=== PATIENT | male | born 1935 | race Caucasian/White ===

== ENCOUNTER 2017-09-10 11:54 | Emergency (ER) | payer MEDICARE, SELFPAY ==
[2017-09-10 12:23] VITALS: BP 92/60; PULSE 80; RESP 20; TEMP 37.4; O2SAT 95; BMI 28.5
--- NOTE | 2017-09-10 12:26 | HMH.EDUTC ---
[facility] [place] Clinical Impression: Gastroenteritis Disposition: Home, Self-Care Condition on Discharge: Good Instructions: DI for Vomiting -- Adult, DI for Dehydration -- Adult, Dehydration Additional Instructions: ? Drink extra fluids with and between meals. If you have difficulty drinking, try very small amounts of water or suck on ice chips. ? Avoid fruit juices, as these do not replace minerals and can actually increase diarrhea. ? Children and adults can use sports drinks to replenish electrolytes. Younger children and infants should use products formulated for children, like oral rehydration solutions. ? Eat food in small amounts and let your stomach recover. ? Get lots of rest. You may feel tired or weak. ? Check with your doctor before taking medications or giving them to children. Never give aspirin to children or teenagers with a viral illness. This can cause Saturnino syndrome, a potentially life-threatening condition. Make sure to drink plenty of fluids to keep yourself hydrated Follow up with family doctor in 24-48 hours if no improvement or worsening of symptoms Straight to ER if any life threatening symptoms Prescriptions: Ondansetron [Zofran 4mg ODT] 4 mg PO Q8H #20 tab.rapdis Referrals: Jaime Cleveland MD [Primary Care Provider] - Time of Disposition: 14:53 Medical Decision Making - Medical Records Medical records reviewed: Yes: I reviewed the patient's medical records. - Wilian Inquiry Pt receiving controlled substance: No Wilian was queried for this patient: No Vital Signs: 09/10/17 12:23 Temperature 99.4 F Temperature Source Temporal Artery Scan Pulse Rate [Right Brachial] 80 Respiratory Rate 20 Blood Pressure [Right Arm] 92/60 Blood Pressure Mean [Right Arm] 70 Blood Pressure Source [Right Arm] Automatic Cuff Blood Pressure Position [Right Arm] Sitting 02 Sat by Pulse Oximetry 95 Oxygen Delivery Method Room Air Orders (Tests/Meds): ED MEDICATIONS Discontinued Medications Generic Name Dose Route Start Last Admin Trade Name Freq PRN Reason Stop Dose Admin Sodium Chloride 1,000 mls @ 999 mls/hr 09/10/17 12:30 09/10/17 12:53 Sod Chlor 0.9% 1000ml Bag IV 09/10/17 13:30 999 mls/hr .Q1H1M DANNI Administration Sodium Chloride 1,000 mls @ 999 mls/hr 09/10/17 13:45 09/10/17 13:40 Sod Chlor 0.9% 1000ml Bag IV 09/10/17 14:45 999 mls/hr .Q1H1M DANNI Administration Ondansetron HCl 4 mg 09/10/17 12:41 09/10/17 12:53 Zofran 4mg/2ml Vial IV 09/10/17 12:42 4 mg ONCE ONE Administration - Reevaluation(s) Time: 13:30 Reevaluation #1: Patient has had one 1 liter bolus and zofran State that he feels much better, second liter of fluids hang and infusing at this time Time: 14:49 Reevaluation #3: Patient no joking with family and laughing State that he no longer feels weak. State that he feels much better and longer weak when he tries to walk and his mouth is no longer dry Blood pressure rechecked and recorded [facility] [place] - General Stated complaint: weak flu like symptoms Time Seen by Provider: 09/10/17 12:20 Mode of Arrival: Family Vehicle Source of Information: Patient Limitations: No Limitations Description of Symptoms (Recalled from Triage Doc. by RN): c/o weakness, vomiting, diarrhea and abd cramps HEENT Symptoms (Recalled from RN notes): No Resp Symptoms (Recalled from RN notes): No Skin Symptoms (Recalled from RN notes): No MS Symptoms (Recalled from RN notes): No Functional Status (Recalled from RN notes): n/a - History of Present Illness Provider Complaint: Patient state that for the last couple of days he has been having nausea vomiting and diarrhea along with some abdominal cramping State that just prior to having vomiting or diarrhea he cramps in his stomach State that he felt a little better yesterday and didn't have much vomiting and diarrhea but it started back last night and this morning he feels a little weak and having vomiting again -
[2017-09-10 14:51] VITALS: BP 112/64; PULSE 68
[2017-09-10 15:01] VITALS: BP 112/68; PULSE 81; RESP 20; TEMP 37.2; O2SAT 97
== END 2017-09-10 15:03 | disposition home or self-care (01) ==
PROVIDERS: Emergency Provider Nurse Practitioner; Family Provider Family Medicine; PCP Family Medicine
DX: K52.9 Noninfective gastroenteritis and colitis, unspecified (principal); I10 Essential (primary) hypertension; E78.5 Hyperlipidemia, unspecified; Z79.82 Long term (current) use of aspirin
CPT/HCPCS: 96360; 96361; 96365; 96366; 96375; 99202; J2405

== ENCOUNTER 2017-09-13 20:50 | Inpatient (IN) ==
[2017-09-13 21:39] LABS: Eosinophils % 0.5 % (0.1-12.0); Hematocrit 42.8 % (42.0-52.0); Hemoglobin 14.1 g/dL (14.1-18.0); Lymphocytes # 0.4 K/mm3 (0.7-4.5); Lymphocytes % 4.9 K/mm3 (10-50); Mean Corpuscular Hemoglobin 32.1 pg (27.0-31.2); Mean Corpuscular Volume 97.3 fl (80-94); Monocytes # 0.2 K/mm3 (0.1-1.0); Monocytes % 2.8 % (1.7-9.3); Neutrophils # 7.6 K/mm3 (1.8-7.8); Neutrophils % 91.8 % (37.0-80.0); Platelet Count 177 K/mm3 (142-424); Red Cell Distribution Width 13.7 % (11.5-17.5); White Blood Count 8.2 K/mm3 (4.8-10.8)
--- NOTE | 2017-09-13 22:05 | Emergency Department Note ---
ED Disposition Clinical Impression: Cholecystitis with cholelithiasis Qualifiers: Cholelithiasis location: gallbladder Cholecystitis acuity: acute Biliary obstruction: without biliary obstruction Qualified Code(s): K80.00 - Calculus of gallbladder with acute cholecystitis without obstruction Disposition: Admitted As Inpatient Condition on Discharge: Good Referrals: Jaime Cleveland MD [Primary Care Provider] - - Critical Care Critical Care Time: No Attestation: On 09/13/17, the high probability of a clinically significant, sudden or life threatening deterioration of the following system(s) required my full and direct attention, intervention and personal management. The time I documented below is in addition to time spent performing reported procedures but includes the following listed in this critical care notation. Medical Decision Making - Medical Records Medical records reviewed: Yes: I reviewed the patient's medical records. - Wilian Inquiry Pt receiving controlled substance: No Vital Signs: 09/13/17 20:56 Temperature 98.7 F Temperature Source Oral Pulse Rate [Right Radial] 83 Respiratory Rate 16 Blood Pressure [Right Arm] 141/57 Blood Pressure Mean [Right Arm] 85 Blood Pressure Source [Right Arm] Automatic Cuff Blood Pressure Position [Right Arm] Sitting 02 Sat by Pulse Oximetry 96 Oxygen Delivery Method Room Air - Lab Data Lab results reviewed: Yes: I reviewed the patient's lab results. Lab Results 09/13/17 21:28: WBC 8.2, RBC 4.40 L, Hgb 14.1, Hct 42.8, MCV 97.3 H, MCH 32.1 H , MCHC 33.0, RDW 13.7, Plt Count 177, MPV 8.0, Neut % (Auto) 91.8 H, Lymph % ( Auto) 4.9 L, [place] % (Auto) 2.8, Eos % (Auto) 0.5, Baso % (Auto) 0.0 L, Neut # ( Auto) 7.6, Lymph # (Auto) 0.4 L, [place] # (Auto) 0.2, Eos # (Auto) 0.0, Baso # ( Auto) 0.0 09/13/17 21:28: Sodium 139, Potassium 3.8, Chloride 103, Carbon Dioxide 27, Anion Gap 12.8, BUN 16, Creatinine 1.09, Estimated Creat Clear 71, Estimated GFR 65, Est GFR ( Amer) 79, Glucose 129 H, Calcium 8.6, Total Bilirubin 2.7 H, AST 22, ALT 24, Alkaline Phosphatase 115, Total Creatine Kinase 17 L, CK- MB (CK-2) < 0.5, CK-MB (CK-2) Rel Index 2.9, Troponin I < 0.02, Total Protein 7.1, Albumin 2.8 L, Globulin 4.3 H, Albumin/Globulin Ratio 0.7 L, Amylase 13 L, Lipase 41 L 09/13/17 22:20: Lactic Acid 1.8 Result diagrams: 09/13/17 21:28 09/13/17 21:28 Orders (Tests/Meds): ED MEDICATIONS Generic Name Dose Route Start Last Admin Trade Name Freq PRN Reason Stop Dose Admin Sodium Chloride 1,000 mls @ 75 mls/hr 09/13/17 22:30 09/13/17 22:42 Sod Chlor 0.9% 1000ml Bag IV 10/13/17 22:29 75 mls/hr .[id number] DANNI Administration Discontinued Medications Generic Name Dose Route Start Last Admin Trade Name Freq PRN Reason Stop Dose Admin Morphine Sulfate 2 mg 09/13/17 22:28 09/13/17 22:42 Morphine 2mg/2ml Syringe IV 09/13/17 22:29 2 mg ONCE ONE Administration ORDERS Category Date Time Status CT abdomen pelvis wo con Stat Cat Scan 09/13/17 21:[address] abdomen pelvis wo con Stat Cat Scan 09/13/17 21:45 Taken Complete Blood Count Auto Diff Stat Lab 09/13/17 21:28 Results Urinalysis and Microscopic Stat Lab 09/13/17 21:10 Ordered Blood Culture Stat Micro 09/13/17 22:20 Received - Radiology Data #1 Image(s): Chest Image Reviewed: Yes I reviewed the patient's radiology image Preliminary Findings: Normal/NAD - CT Data CT Scan: Abdomen, Pelvis Time Received: 22:[address] Reviewed: Yes: I have viewed the radiologist's interpretation Preliminary Findings: Abnormal (see report) - ECG Data Tracing #1 I reviewed this ECG and interpreted as documented below: Normal Sinus Rhythm: Yes Arrhythmias present: sinus tach Conduction abnormalities present: RBBB - Physician Consults Physician Consulted: daya Reason -: Admission Nausea/Vomiting/Diarrhea HPI - General Chief complaint: Abdominal Pain Stated complaint: Weakness, SOA Time Seen by Provider: 09/13/17 22:01 Mode of Arrival: Ambulatory Source of Information: Patient Limitations: No Limitations Description of Symptoms (Recalled from ER Triage Doc. by RN): pt had vomiting last week, seen and given hydration, today has right abd pain and into right shoulder, and feels moving makes it hard to breath - History of Present Illness HPI Narrative: since last has pain rt upper abd with rad to rt sholulder and back - no fever or rash with dec po intake MD complaint: nausea, vomiting, abdominal pain Onset (ago): day(s) Associated Abdominal Pain: Yes Location of pain: RUQ Severity: moderate Quality: aching Consistency: constant - Related Data Home Medications Medication Instructions Recorded Confirmed Amlodipine Besylate [Norvasc 10mg 10 mg PO DAILY 09/10/17 09/13/17 tablet] Aspirin [Aspir 81] 81 mg PO DAILY 09/10/17 09/13/17 Atenolol [Atenolol 25mg Tab] 25 mg PO DAILY 09/10/17 09/13/17 Niacin [Niacin ER] 500 mg PO DAILY 09/10/17 09/13/17 Pravastatin Sodium [Pravachol 40mg 40 mg pe PO DAILY 09/10/17 09/13/17 Tablet] Previous Rx's Medication Instructions Recorded Ondansetron [Zofran 4mg ODT] 4 mg PO Q8H #20 tab.rapdis 09/10/17 Allergies Allergy/AdvReac Type Severity Reaction Status Date / Time No Known Allergies Allergy Verified 09/10/17 12:26 [facility] History I have reviewed the patient's past medical history: Yes Medical History: Denies:: Cancer, Diabetes Mellitus Type 1, Diabetes Mellitus Type 2, MRSA Amputation: No Fractures: No - Social History Smoking Status: Former smoker Alcohol Intake: never - Psychiatric History Expresses thoughts of harming self/others: None Suicide Plan Description: No Plan ROS Obtained: Yes All systems reviewed & no additional complaints - Constitutional Constitutional: Denies fever(s) - Eyes Eyes: Denies change in vision - ENT Ears, Nose, Mouth, and Throat: Denies sore throat - Cardiovascular Cardiovascular: Denies chest pain - Respiratory Respiratory: No cough - Gastrointestinal Gastrointestingal: Reports: abdominal pain, nausea, vomiting. Denies: diarrhea - Genitourinary Male Genitourinary: Denies flank pain - Musculoskeletal Musculoskeletal: Denies joint pain, Denies joint swelling - Integumentary/Breasts Skin/Breast: Denies rash - Neurologic Neurologic: Denies seizure-like activity Physical Exam - General General appearance: in no apparent distress - Head Head exam: normocephalic - Eye Eye exam: Present: PERRL, EOMI. Absent: scleral icterus - ENT ENT exam: Present: mucous membranes dry - Neck Neck exam: Absent: trachea midline - Respiratory Respiratory exam: Present: other (rales rt base ). Absent: respiratory distress - Cardiovascular Cardiovascular exam: Present: regular rate, systolic murmur, +S4 - Abdominal Exam Abdominal exam: Present: soft, tenderness. Absent: guarding, rebound Abdominal tenderness: Present: RUQ - Extremities Exam Extremities exam: Present: full ROM - Back Exam Back exam: Absent: CVA tenderness (R) - Neurological Exam Neurological exam: Present: alert, oriented X3, CN II-XII intact - Psychiatric Psychiatric exam: Present: normal affect - Skin Skin exam: Absent: rash
[2017-09-13 22:28] LABS: Alanine Aminotransferase 24 U/L (12-78); Albumin Level 2.8 gm/dL (3.4-5.0); Albumin/Globulin Ratio 0.7 (1.1-1.8); Alkaline Phosphatase 115 U/L (46-116); Amylase 13 U/L (25-125); Aspartate Amino Transferase 22 U/L (15-37); Bilirubin,Total 2.7 mg/dL (0.2-1.0); Blood Urea Nitrogen 16 mg/dL (7-18); Calcium 8.6 mg/dL (8.5-10.1); Carbon Dioxide 27 mmol/L (21.0-32.0); Creatine Kinase 17 U/L (39-308); Globulin 4.3 gm/dl (1.3-3.2); Glucose 129 mg/dL (74-106); Lipase 41 u/L (73-393); Total Protein,Serum 7.1 gm/dL (6.4-8.2)
[2017-09-13 22:44] LABS: Anion Gap 12.8 mEq/L (5-15); Chloride 103 mmol/L (98-107); Potassium 3.8 mmoL/L (3.5-5.1); Sodium 139 mmol/L (136-145)
[2017-09-14 01:58] LABS: Lymphocytes % 6 % (10-50); Monocytes % 1 % (2-9); Neutrophils % 93 % (42-76); Total Cells Counted 100
[2017-09-14 01:59] LABS: Anisocytosis 1+
[2017-09-14 06:47] LABS: Basophils % 0.1 % (0.1-2.0); Eosinophils % 0.1 % (0.1-12.0); Hematocrit 40.2 % (42.0-52.0); Lymphocytes # 0.8 K/mm3 (0.7-4.5); Lymphocytes % 4.7 K/mm3 (10-50); Mean Corpuscular HGB Conc 32.4 g/dL (31.8-35.4); Mean Corpuscular Hemoglobin 31.6 pg (27.0-31.2); Mean Corpuscular Volume 97.6 fl (80-94); Mean Platelet Volume 8.2 fl (7.4-10.4); Monocytes # 0.6 K/mm3 (0.1-1.0); Monocytes % 3.6 % (1.7-9.3); Neutrophils # 15.5 K/mm3 (1.8-7.8); Neutrophils % 91.4 % (37.0-80.0); Platelet Count 159 K/mm3 (142-424); Red Blood Count 4.12 M/mm3 (4.60-6.20); Red Cell Distribution Width 13.5 % (11.5-17.5)
[2017-09-14 06:58] LABS: Albumin Level 2.3 gm/dL (3.4-5.0); Albumin/Globulin Ratio 0.6 (1.1-1.8); Anion Gap 7.3 mEq/L (5-15); Bilirubin,Total 2.4 mg/dL (0.2-1.0); Calcium 8.3 mg/dL (8.5-10.1); Globulin 3.6 gm/dl (1.3-3.2); Potassium 4.3 mmoL/L (3.5-5.1); Total Protein,Serum 5.9 gm/dL (6.4-8.2)
--- NOTE | 2017-09-14 07:21 | Pharmacy Consult Notes ---
[facility] Pharmacy VTE Monitoring - Patient Demographics Admission date: 09/13/17 Report Date: 09/14/17 Time: 07:21 Allergies/Adverse Reactions: Patient Allergies No Known Allergies Allergy (Verified 09/10/17 12:26) Height: 1.8 m Weight: 96.7 kg Patient Problems: Current Active Problems Cholecystitis with cholelithiasis (Acute) - VTE Risk Labs: VTE Related Lab Results Hgb 13.0 g/dL (14.1-18.0) L 09/14/17 06:10 Hct 40.2 % (42.0-52.0) L 09/14/17 06:10 Plt Count 159 K/mm3 (142-424) 09/14/17 06:10 BUN 21 mg/dL (7-18) H D 09/14/17 06:10 Creatinine 1.26 mg/dL (0.70-1.30) 09/14/17 06:10 Estimated Creat Clear 64 mL/min (0-300) 09/14/17 06:10 Was VTE Risk Assessment Performed: Yes VTE Score: 1 VTE Risk Level: Very Low Risk - Prophylaxis VTE Prophylaxis Ordered?: Yes Types of VTE Prophylaxis: TEDS Knee High Location of Applied Device: Bilateral Lower Extremeties - VTE Diagnosis Confirmed Treatment or plan recommended: Continue Current Treatment
--- NOTE | 2017-09-14 07:29 | History & Physical Report ---
*Admission Date: 09/13/17 *Chief complaint: Abdominal pain *History of present illness: 82-year-old male presented to the emergency department yesterday evening with 5 days of illness that began with vomiting starting around midnight on September 09. Vomiting persisted for less than 24 hours but then he developed right-sided abdominal pain that was unrelenting. Patient presented to the urgent treatment clinic on September 10. He was given IV fluids be followed up in my office yesterday afternoon and then was ultimately seen in the emergency department. Workup was performed and CT scan revealed gallstones and findings of possible early acute cholecystitis. Patient was admitted on IV Invanz and for surgical consultation. Patient reports right abdominal pain extends from the right upper quadrant down to the right mid and lower quadrants and it radiates into the right shoulder. Prior surgeries include hernia repair in 2014 and cage in 1999. [facility] History Medical History: Reports:: Atherosclerotic Heart Disease, Hyperlipidemia, Hypertension Denies:: Cancer, Diabetes Mellitus Type 1, Diabetes Mellitus Type 2, MRSA Other Surgeries: Yes: CABG, Hernia Repair Amputation: No Fractures: No - *Social History Educational Level: Completed College Smoking Status: Former smoker Tobacco Type: cigarettes, cigars # Packs/Day (cigarettes): 1 #Yrs smoked (if former smoker): 25 Smoking End Date: 1997 Alcohol Intake: never Occupational Status: retired Housing: house Household Members: spouse - Psychiatric History Expresses thoughts of harming self/others: None Suicide Plan Description: No Plan *Family Hx:: Coronary Artery Disease, Diabetes, Heart Attack, Hyperlipidemia, Hypertension, Stroke Review of Systems - Review of Systems Review of systems:: pertinent systems reviewed and negative unless documented below - *Cardiovascular Denies chest pain - *Respiratory Denies shortness of breath - *Neurologic Denies seizure-like activity Meds Home Medications Medication Instructions Recorded Confirmed Type Amlodipine Besylate [Norvasc 10mg 10 mg PO DAILY 09/10/17 09/14/17 History tablet] Aspirin [Aspir 81] 81 mg PO DAILY 09/10/17 09/14/17 History Atenolol [Atenolol 25mg Tab] 25 mg PO DAILY 09/10/17 09/14/17 History Niacin [Niacin ER] 500 mg PO DAILY 09/10/17 09/14/17 History Pravastatin Sodium [Pravachol 40mg 40 mg PO DAILY 09/10/17 09/14/17 History Tablet] Meclizine HCl [Meclizine 12.5mg 12.5 mg PO DAILY 09/14/17 09/14/17 History Tab] Allergies Allergy/AdvReac Type Severity Reaction Status Date / Time No Known Allergies Allergy Verified 09/10/17 12:26 Exam Vital signs and Labs for Last 24 Hours: Temp Pulse Resp BP Pulse Ox 97.7 F 76 20 97/59 96 09/14/17 03:20 09/14/17 03:20 09/14/17 03:20 09/14/17 03:20 09/14/17 03:20 Laboratory Results - last 24 hr 09/14/17 06:10: WBC 17.0 H D, RBC 4.12 L, Hgb 13.0 L, Hct 40.2 L, MCV 97.6 H, MCH 31.6 H, MCHC 32.4, RDW 13.5, Plt Count 159, MPV 8.2, Neut % (Auto) 91.4 H, Lymph % (Auto) 4.7 L, [place] % (Auto) 3.6, Eos % (Auto) 0.1, Baso % (Auto) 0.1, Neut # (Auto) 15.5 H, Lymph # (Auto) 0.8, [place] # (Auto) 0.6, Eos # (Auto) 0.0, Baso # (Auto) 0.0 09/14/17 06:10: Sodium 138, Potassium 4.3, Chloride 107, Carbon Dioxide 28, Anion Gap 7.3, BUN 21 H D, Creatinine 1.26, Estimated Creat Clear 64, Estimated GFR 55 L, Est GFR ( Amer) 67, Glucose 107 H, Calcium 8.3 L, Total Bilirubin 2.4 H, AST 15 D, ALT 19, Alkaline Phosphatase 90, Total Protein 5.9 L , Albumin 2.3 L D, Globulin 3.6 H, Albumin/Globulin Ratio 0.6 L I & O for Last 24 hours: Intake & Output 09/11/17 09/12/17 09/13/17 09/14/17 11:59 11:59 11:59 11:59 Intake Total 366 / 366 Output Total 0 / 0 Balance 366 / 366 Weight 213 lb 3 oz Narrative: Patient appears comfortable resting in bed this morning. Pupils are reactive to light. Oropharynx is moist. Neck is without carotid bruits or lymphadenopathy. Lungs are clear to auscultation. Heart has a regular rate and rhythm. Abdomen is soft with epigastric, right upper quadrant, right lower quadrant tenderness to palpation. Bowel sounds are diminished. There is no guarding. Neurologic exam is grossly normal H&P: Result - Labs Labs: Short CBC 09/14/17 Range/Units 06:10 WBC 17.0 H D (4.8-10.8) K/mm3 Hgb 13.0 L (14.1-18.0) g/dL Hct 40.2 L (42.0-52.0) % Plt Count 159 (142-424) K/mm3 BMP 09/14/17 06:10 Sodium 138 Potassium 4.3 Chloride 107 Carbon Dioxide 28 BUN 21 H D Creatinine 1.26 Glucose 107 H Calcium 8.3 L Liver Function 09/14/17 Range/Units 06:10 Total Bilirubin 2.4 H (0.2-1.0) mg/dL AST 15 D (15-37) U/L ALT 19 (12-78) U/L Alkaline Phosphatase 90 (46-116) U/L Albumin 2.3 L D (3.4-5.0) gm/dL Assessment and Plan (1) Cholecystitis with cholelithiasis Current visit: Yes Status: Acute Qualifiers: Cholelithiasis location: gallbladder Cholecystitis acuity: acute Biliary obstruction: without biliary obstruction Qualified Code(s): K80.00 - Calculus of gallbladder with acute cholecystitis without obstruction Category: Medical Code(s): K80.10 - Calculus of gallbladder with chronic cholecystitis without obstruction - Assessment and plan all Dx Assessment and Plan for all problems:: 1. Abdominal ultrasound and surgical consultation today
[2017-09-14 08:12] LABS: Lymphocytes % 7 % (10-50); Monocytes % 2 % (2-9); Neutrophils % 91 % (42-76); Total Cells Counted 100
[2017-09-14 08:13] LABS: RBC Morphology Normal
--- NOTE | 2017-09-14 14:33 | Consult Report ---
*Admission Date: 09/13/17 *Chief complaint: Abdominal pain *History of present illness: Patient is a pleasant 82-year-old white male. He states that last week on he had developed significant nausea and vomiting. This had persisted and he had presented to the urgent treatment center. He was given IV fluids which helped. He had developed some right-sided abdominal pain. This became progressively significantly severe yesterday evening and he presented to the emergency department. He underwent CT scan of the abdomen and pelvis which revealed findings suggestive of cholecystitis. He was admitted for inpatient management. He was started on intravenous Invanz. Gallbladder ultrasound was ordered. This reveals findings for gallstones, minimal pericholecystic fluid, normal common bile duct. Surgical consultation was obtained. Review of Systems - Constitutional Reports anorexia - Eyes Denies change in vision - ENT Denies abnormal hearing - *Cardiovascular Reports shortness of breath, Denies chest pain - *Gastrointestinal Reports abdominal pain, Reports change in stools - *Genitourinary Denies difficulty urinating - *Neurologic Denies seizure-like activity [facility] History Medical History: Reports:: Atherosclerotic Heart Disease, Hyperlipidemia, Hypertension Denies:: Cancer, Diabetes Mellitus Type 1, Diabetes Mellitus Type 2, MRSA Other Surgeries: Yes: CABG, Hernia Repair Amputation: No Fractures: No - *Social History Educational Level: Completed College Smoking Status: Former smoker Tobacco Type: cigarettes, cigars # Packs/Day (cigarettes): 1 #Yrs smoked (if former smoker): 25 Smoking End Date: 1997 Alcohol Intake: never Occupational Status: retired Housing: house Household Members: spouse - Psychiatric History Expresses thoughts of harming self/others: None Suicide Plan Description: No Plan *Family Hx:: Coronary Artery Disease, Diabetes, Heart Attack, Hyperlipidemia, Hypertension, Stroke Meds Home Medications Medication Instructions Recorded Confirmed Type Amlodipine Besylate [Norvasc 10mg 10 mg PO DAILY 09/10/17 09/14/17 History tablet] Aspirin [Aspir 81] 81 mg PO DAILY 09/10/17 09/14/17 History Atenolol [Atenolol 25mg Tab] 25 mg PO DAILY 09/10/17 09/14/17 History Niacin [Niacin ER] 500 mg PO DAILY 09/10/17 09/14/17 History Pravastatin Sodium [Pravachol 40mg 40 mg PO DAILY 09/10/17 09/14/17 History Tablet] Meclizine HCl [Meclizine 12.5mg 12.5 mg PO DAILY 09/14/17 09/14/17 History Tab] Allergies Allergy/AdvReac Type Severity Reaction Status Date / Time No Known Allergies Allergy Verified 09/10/17 12:26 Exam Vital signs and Labs for Last 24 Hours: Temp Pulse Resp BP Pulse Ox 98.0 F 76 20 95/63 91 L 09/14/17 07:48 09/14/17 07:48 09/14/17 09:41 09/14/17 07:48 09/14/17 09:41 Laboratory Results - last 24 hr 09/14/17 06:10: WBC 17.0 H D, RBC 4.12 L, Hgb 13.0 L, Hct 40.2 L, MCV 97.6 H, MCH 31.6 H, MCHC 32.4, RDW 13.5, Plt Count 159, MPV 8.2, Neut % (Auto) 91.4 H, Lymph % (Auto) 4.7 L, [place] % (Auto) 3.6, Eos % (Auto) 0.1, Baso % (Auto) 0.1, Neut # (Auto) 15.5 H, Lymph # (Auto) 0.8, [place] # (Auto) 0.6, Eos # (Auto) 0.0, Baso # (Auto) 0.0, Total Counted 100, Neutrophils % (Manual) 91 H, Lymphocytes % (Manual) 7 L, Monocytes % (Manual) 2, Platelet Estimate Normal, RBC Morphology Normal 09/14/17 06:10: Sodium 138, Potassium 4.3, Chloride 107, Carbon Dioxide 28, Anion Gap 7.3, BUN 21 H D, Creatinine 1.26, Estimated Creat Clear 64, Estimated GFR 55 L, Est GFR ( Amer) 67, Glucose 107 H, Calcium 8.3 L, Total Bilirubin 2.4 H, AST 15 D, ALT 19, Alkaline Phosphatase 90, Total Protein 5.9 L , Albumin 2.3 L D, Globulin 3.6 H, Albumin/Globulin Ratio 0.6 L I & O for Last 24 hours: Intake & Output 09/12/17 09/13/17 09/14/17 09/15/17 11:59 11:59 11:59 11:59 Intake Total 366 / 366 0 / 0 Output Total 0 / 0 Balance 366 / 366 0 / 0 Weight 213 lb 3 oz - Constitutional no acute distress - *Routine Respiratory Exam Present: CTA bilaterally - *Routine Cardiovascular Exam Present: RRR - *Routine Abdominal Exam Present: soft, tenderness Comments: Patient has diffuse tenderness most notable in the epigastrium right upper quadrant with moderate tenderness in the right lower quadrant. He does have a positive Pollack sign. Results - Labs 09/14/17 06:10 09/14/17 06:10 Laboratory Results - last 24 hr 09/14/17 06:10: WBC 17.0 H D, RBC 4.12 L, Hgb 13.0 L, Hct 40.2 L, MCV 97.6 H, MCH 31.6 H, MCHC 32.4, RDW 13.5, Plt Count 159, MPV 8.2, Neut % (Auto) 91.4 H, Lymph % (Auto) 4.7 L, [place] % (Auto) 3.6, Eos % (Auto) 0.1, Baso % (Auto) 0.1, Neut # (Auto) 15.5 H, Lymph # (Auto) 0.8, [place] # (Auto) 0.6, Eos # (Auto) 0.0, Baso # (Auto) 0.0, Total Counted 100, Neutrophils % (Manual) 91 H, Lymphocytes % (Manual) 7 L, Monocytes % (Manual) 2, Platelet Estimate Normal, RBC Morphology Normal 09/14/17 06:10: Sodium 138, Potassium 4.3, Chloride 107, Carbon Dioxide 28, Anion Gap 7.3, BUN 21 H D, Creatinine 1.26, Estimated Creat Clear 64, Estimated GFR 55 L, Est GFR ( Amer) 67, Glucose 107 H, Calcium 8.3 L, Total Bilirubin 2.4 H, AST 15 D, ALT 19, Alkaline Phosphatase 90, Total Protein 5.9 L , Albumin 2.3 L D, Globulin 3.6 H, Albumin/Globulin Ratio 0.6 L Assessment and Plan (1) Cholecystitis with cholelithiasis Current visit: Yes Status: Acute Qualifiers: Cholelithiasis location: gallbladder Cholecystitis acuity: acute Biliary obstruction: without biliary obstruction Qualified Code(s): K80.00 - Calculus of gallbladder with acute cholecystitis without obstruction Category: Medical Code(s): K80.10 - Calculus of gallbladder with chronic cholecystitis without obstruction - Assessment and plan all Dx Assessment and Plan for all problems:: He does have findings consistent with acute cholecystitis. Agree with antibiotics and IV fluids at this time. I will plan for tentative cholecystectomy tomorrow. Concerning is the elevation of the bilirubin to 2.7. This may be merely secondary to gallbladder distention. Plan to recheck this tomorrow. Obviously if this increases dramatically he could require ERCP. However, at this time I would plan for laparoscopic with possibly open cholecystectomy with probable intraoperative cholangiogram. This is to be scheduled for tomorrow morning.
--- NOTE | 2017-09-15 06:43 | Progress Note ---
Internal Medicine - PN: Subj *Date: 09/15/17 *Time: 06:42 Interval history: Patient did well overnight. He tolerated some liquids yesterday evening without increase in pain. He does tell me when going to the bathroom overnight he got a little winded on the way back from the bathroom. Exam Vital signs and Labs for Last 24 Hours: Temp Pulse Resp BP Pulse Ox 98.1 F 86 18 117/75 90 L 09/15/17 04:00 09/15/17 04:00 09/15/17 04:00 09/15/17 04:00 09/15/17 04:00 Laboratory Results - last 24 hr 09/14/17 06:10: WBC 17.0 H D, RBC 4.12 L, Hgb 13.0 L, Hct 40.2 L, MCV 97.6 H, MCH 31.6 H, MCHC 32.4, RDW 13.5, Plt Count 159, MPV 8.2, Neut % (Auto) 91.4 H, Lymph % (Auto) 4.7 L, [place] % (Auto) 3.6, Eos % (Auto) 0.1, Baso % (Auto) 0.1, Neut # (Auto) 15.5 H, Lymph # (Auto) 0.8, [place] # (Auto) 0.6, Eos # (Auto) 0.0, Baso # (Auto) 0.0, Total Counted 100, Neutrophils % (Manual) 91 H, Lymphocytes % (Manual) 7 L, Monocytes % (Manual) 2, Platelet Estimate Normal, RBC Morphology Normal 09/14/17 06:10: Sodium 138, Potassium 4.3, Chloride 107, Carbon Dioxide 28, Anion Gap 7.3, BUN 21 H D, Creatinine 1.26, Estimated Creat Clear 64, Estimated GFR 55 L, Est GFR ( Amer) 67, Glucose 107 H, Calcium 8.3 L, Total Bilirubin 2.4 H, AST 15 D, ALT 19, Alkaline Phosphatase 90, Total Protein 5.9 L , Albumin 2.3 L D, Globulin 3.6 H, Albumin/Globulin Ratio 0.6 L I & O for Last 24 hours: Intake & Output 09/12/17 09/13/17 09/14/17 09/15/17 11:59 11:59 11:59 11:59 Intake Total 366 / 366 2199 / 2199 Output Total 0 / 0 400 / 400 Balance / 1799 / 1799 Weight 213 lb 3 oz Narrative: Patient is in no distress. Lungs are clear but diminished at the bases. Heart has a regular rate and rhythm. Abdomen remains tender in the right upper quadrant and right flank Assessment and Plan (1) Cholecystitis with cholelithiasis Current visit: Yes Status: Acute Qualifiers: Cholelithiasis location: gallbladder Cholecystitis acuity: acute Biliary obstruction: without biliary obstruction Qualified Code(s): K80.00 - Calculus of gallbladder with acute cholecystitis without obstruction Category: Medical Code(s): K80.10 - Calculus of gallbladder with chronic cholecystitis without obstruction - Assessment and plan all Dx Assessment and Plan for all problems:: Surgery today. I am going to stop the patient's IV fluids this morning as I think he is getting a little fluid overloaded and will give him a small dose of intra-venous Lasix
[2017-09-15 06:58] LABS: Albumin Level 2.1 gm/dL (3.4-5.0); Albumin/Globulin Ratio 0.6 (1.1-1.8); Bilirubin,Total 1.6 mg/dL (0.2-1.0); Calcium 8.4 mg/dL (8.5-10.1); Globulin 3.8 gm/dl (1.3-3.2); Total Protein,Serum 5.9 gm/dL (6.4-8.2)
[2017-09-15 07:14] LABS: Basophils % 0.1 % (0.1-2.0); Eosinophils # 0.1 K/mm3 (0.0-0.4); Eosinophils % 0.3 % (0.1-12.0); Hematocrit 40.8 % (42.0-52.0); Hemoglobin 13.3 g/dL (14.1-18.0); Lymphocytes # 0.8 K/mm3 (0.7-4.5); Lymphocytes % 5.3 K/mm3 (10-50); Mean Corpuscular HGB Conc 32.5 g/dL (31.8-35.4); Mean Corpuscular Volume 98.3 fl (80-94); Mean Platelet Volume 8.1 fl (7.4-10.4); Monocytes # 0.7 K/mm3 (0.1-1.0); Monocytes % 4.5 % (1.7-9.3); Neutrophils # 13.4 K/mm3 (1.8-7.8); Neutrophils % 89.7 % (37.0-80.0); Platelet Count 184 K/mm3 (142-424); Red Blood Count 4.15 M/mm3 (4.60-6.20); Red Cell Distribution Width 13.6 % (11.5-17.5)
--- NOTE | 2017-09-15 07:23 | Progress Note ---
Subjective Patient reports: no new complaints Narrative: Patient has been tolerating clear liquids. Some shortness of air. Exam Vital signs and Labs for Last 24 Hours: Temp Pulse Resp BP Pulse Ox 98.1 F 86 18 117/75 90 L 09/15/17 04:00 09/15/17 04:00 09/15/17 04:00 09/15/17 04:00 09/15/17 04:00 Laboratory Results - last 24 hr 09/14/17 06:10: Total Counted 100, Neutrophils % (Manual) 91 H, Lymphocytes % ( Manual) 7 L, Monocytes % (Manual) 2, Platelet Estimate Normal, RBC Morphology Normal 09/15/17 06:30: WBC 15.0 H, RBC 4.15 L, Hgb 13.3 L, Hct 40.8 L, MCV 98.3 H, MCH 32.0 H, MCHC 32.5, RDW 13.6, Plt Count 184, MPV 8.1, Neut % (Auto) 89.7 H, Lymph % (Auto) 5.3 L, [place] % (Auto) 4.5, Eos % (Auto) 0.3, Baso % (Auto) 0.1, Neut # (Auto) 13.4 H, Lymph # (Auto) 0.8, [place] # (Auto) 0.7, Eos # (Auto) 0.1, Baso # (Auto) 0.0 09/15/17 06:30: Sodium 142, Potassium 4.0, Chloride 107, Carbon Dioxide 26, Anion Gap 13.0, BUN 31 H D, Creatinine 1.38 H, Estimated Creat Clear 58, Estimated GFR 50 L, Est GFR ( Amer) 60, Glucose 111 H, Calcium 8.4 L, Total Bilirubin 1.6 H, AST 16, ALT 18, Alkaline Phosphatase 96, Total Protein 5.9 L, Albumin 2.1 L, Globulin 3.8 H, Albumin/Globulin Ratio 0.6 L I & O for Last 24 hours: Intake & Output 09/12/17 09/13/17 09/14/17 09/15/17 11:59 11:59 11:59 11:59 Intake Total 366 / 366 2199 / 2199 Output Total 0 / 0 400 / 400 Balance 366 / 366 1799 / 1799 Weight 213 lb 3 oz - *Routine Abdominal Exam Present: soft, tenderness Progress Note: A&P (1) Cholecystitis with cholelithiasis Status: Acute Assessment and plan: Tentatively plan for cholecystectomy pending labs today. Current Visit: Yes
[2017-09-15 09:05] LABS: Lymphocytes % 4 % (10-50); Monocytes % 3 % (2-9); Neutrophils % 93 % (42-76); Total Cells Counted 100
[2017-09-15 09:06] LABS: RBC Morphology Normal
--- NOTE | 2017-09-15 12:41 | Progress Note ---
[facility] Anesthesia Checklist - Patient Identification Patient Identification: Arm Band - Structural Data Admitted From: Home Planned Operative Procedure/s: lap teddy Consent for Planned Operative Procedure(s) Verified: Yes Verified Documents: Surgical Consent, History and Physical - NPO Status Verified Time NPO: 00:00 - Additional verifications Anesthesia Reactions: No - Airway Assessment C-Spine Mobility Assessed: Yes (mp2) TMJ Mobility Assessed: Yes Dentition: Poor Dentition - Neurological Assessment Level of Consciousness: Awake, Alert - Anesthesia Plan Anesthesia Risk discussed: Yes Anesthesia Plan: Verified ASA Class: III Anesthesia Type: General [facility] Anesthesia HX I have reviewed the patient's past medical history: Yes Medical History: Reports:: Atherosclerotic Heart Disease, Coronary Artery Disease, Hyperlipidemia, Hypertension Denies:: Cancer, Diabetes Mellitus Type 1, Diabetes Mellitus Type 2, MRSA Other Medical History: Reports: Other (sob- 2l o2 started during hospitilization ) Other Surgeries: Yes: CABG, Hernia Repair Amputation: No Fractures: No *Family Hx:: Coronary Artery Disease, Diabetes, Heart Attack, Hyperlipidemia, Hypertension, Stroke
--- NOTE | 2017-09-15 17:08 | Progress Note ---
[facility] Anesthesia Record Part I Intake, IV Amount: 2,300 Estimated blood loss (mL): 25 Urine output (mL): 0 Blood Pressure: 105/65 SaO2: 90 Pulse Rate: 88 Respiratory Rate: 12 Temperature: 97.6 F Patient is:: Awake, Stable Stable to PACU at:: 17:05
--- NOTE | 2017-09-15 17:09 | Progress Note ---
[facility] Anesthesia Record Part II Discharge Time: 17:35 Destination: floor PACU nurse assessment reviewed?: Yes Patient Condition:: Good Anesthesia Complications:: None
--- NOTE | 2017-09-15 17:20 | Operative Note ---
Date of procedure: 09/15/17 Pre-op Diagnosis:: Acute cholecystitis Post-op Diagnosis:: Same Procedure performed:: Laparoscopic cholecystectomy Surgeon:: Compa Pitts MD Desk Assistant(s):: None Anesthesia: HERIBERTO Estimated blood loss (mL): 50 Operative findings:: Patient had a severely inflamed acute abscessed suppurative gallbladder with established peritonitis including abscessed bile in the suprahepatic space and fibrinopurulent exudate and adhesions throughout the right upper quadrant essentially as a phlegmon involving the majority of the right upper quadrant and perihepatic region. Gallbladder is packed full of numerous gallstones. Operative note:: Consent was obtained. Patient was taken to the operating room. He was positioned in a supine position. General anesthesia was induced via endotracheal tube. Abdomen was prepped and draped in the standard surgical fashion. Subumbilical skin incision was made and while performing abdominal wall lift Veress needle was inserted. CO2 pneumoperitoneum was achieved to 15 mmHg. 10/11 mm optical trocar was inserted at the umbilicus. Intraperitoneal contents were visualized and laparoscopic surveillance revealed evidence of establish peritonitis with fibrinopurulent exudate covering loops of bowel adherent to one another into the anterior peritoneum in the right upper quadrant. Liver was even unable to be visualized initially. Therefore 10 mm trocar was inserted in the epigastrium. Currently the inflammatory adhesions of bowel to the anterior peritoneum and the right upper quadrant were taken down using blunt dissection. Patient was then positioned in reverse Trendelenburg with left side down. A couple of 5 mm trochars were inserted in the right upper abdomen. Initially identification of the gallbladder was difficult. Inflammatory adhesions of bowel were bluntly swept free and the gallbladder was ultimately identified somewhat more lateral than expected. It was severely inflamed. Ultimately the 0 laparoscope required replacement with 45 laparoscope to allow for visualization. Gallbladder was grasped and retracted anteriorly. There was bilious purulent liquid which exuded from the gallbladder which was suctioned free. There are numerous very small gallstones and these were evacuated. Blunt dissection was carried down the gallbladder down towards its neck. Ultimately prolonged blunt dissection the apparent cystic duct was identified. Due to the difficult delineating the anatomy and due to the fact that the patient had elevated bilirubin upon admission plan was made for cholangiogram once the cystic duct was isolated it was clipped proximal to the gallbladder. Through approximately a 2 mm incision in the right upper quadrant cholangiocatheter introducer was inserted and the cholangiocatheter was inserted. Small incision was made in the cystic duct and the cholangiocatheter was manipulated into the cystic duct where it was secured with a Hemoclip. Intraoperative cholangiogram was performed using fluoroscopy. This revealed appropriate placement of catheter in the cystic duct with normal filling of the biliary tree and no obstruction or filling defect. Patient was then repositioned and the catheter was removed. Cystic duct was multiply clipped and then divided. Apparent cystic artery was carefully coagulated with David ultrasonic harmonic eloy and divided. Gallbladder was slowly dissected free from the liver in a retrograde fashion tediously using David ultrasonic harmonic eloy and use of laparoscopic hook dissection. Ultimately the gallbladder was placed within an Endo Catch retrieval device and removed from the peritoneal cavity via the umbilical trocar site which required some generous extension of the fascial and skin incision for delivery. Gallbladder fossa and perihepatic space were then thoroughly irrigated and aspirated until clear with at least 8 L of warm saline irrigation. As much as feasible the fibrinopurulent exudate was evacuated using a large suction. There was a pocket of purulent bile above the liver which was evacuated and fibrinopurulent bilious exudate anterior to the liver which was evacuated as well. 10 mm GILDARDO drains were placed lateral over the dome of the liver and more medial drain at the 5 mm trocar site was placed in the subhepatic space and gallbladder fossa. These were inserted and made to exit at the 5 mm trocar sites. There is secured to the skin with 2-0 nylon horizontal mattress sutures. Remaining trochars were then removed. Fascia at the umbilicus was closed with multiple interrupted 0 Ethibond sutures. Local anesthetic was infiltrated. Skin incisions were closed with 4-0 Monocryl in subcuticular fashion. Steri-Strips and clean dry sterile dressings were applied. Condition: stable Disposition: PACU Specimens:: Gallbladder and contents Complications:: None immediately apparent
[2017-09-16 06:13] LABS: Basophils % 0.1 % (0.1-2.0); Hematocrit 38.7 % (42.0-52.0); Hemoglobin 12.4 g/dL (14.1-18.0); Lymphocytes # 0.6 K/mm3 (0.7-4.5); Lymphocytes % 3.2 K/mm3 (10-50); Mean Corpuscular Hemoglobin 31.2 pg (27.0-31.2); Mean Corpuscular Volume 97.5 fl (80-94); Mean Platelet Volume 8.3 fl (7.4-10.4); Monocytes # 0.5 K/mm3 (0.1-1.0); Monocytes % 2.5 % (1.7-9.3); Neutrophils # 17.5 K/mm3 (1.8-7.8); Neutrophils % 94.2 % (37.0-80.0); Platelet Count 226 K/mm3 (142-424); Red Blood Count 3.97 M/mm3 (4.60-6.20); Red Cell Distribution Width 13.7 % (11.5-17.5); White Blood Count 18.6 K/mm3 (4.8-10.8)
[2017-09-16 06:24] LABS: Albumin Level 1.8 gm/dL (3.4-5.0); Albumin/Globulin Ratio 0.5 (1.1-1.8); Bilirubin,Total 0.9 mg/dL (0.2-1.0); Calcium 8.2 mg/dL (8.5-10.1); Globulin 3.9 gm/dl (1.3-3.2); Total Protein,Serum 5.7 gm/dL (6.4-8.2)
--- NOTE | 2017-09-16 07:10 | Progress Note ---
Subjective Patient reports: feels better Exam Vital signs and Labs for Last 24 Hours: Temp Pulse Resp BP Pulse Ox 97.9 F 88 28 H 133/77 93 L 09/16/17 06:00 09/16/17 06:00 09/16/17 06:00 09/16/17 06:00 09/16/17 06:00 Laboratory Results - last 24 hr 09/15/17 06:30: WBC 15.0 H, RBC 4.15 L, Hgb 13.3 L, Hct 40.8 L, MCV 98.3 H, MCH 32.0 H, MCHC 32.5, RDW 13.6, Plt Count 184, MPV 8.1, Neut % (Auto) 89.7 H, Lymph % (Auto) 5.3 L, [place] % (Auto) 4.5, Eos % (Auto) 0.3, Baso % (Auto) 0.1, Neut # (Auto) 13.4 H, Lymph # (Auto) 0.8, [place] # (Auto) 0.7, Eos # (Auto) 0.1, Baso # (Auto) 0.0, Total Counted 100, Neutrophils % (Manual) 93 H, Lymphocytes % (Manual) 4 L, Monocytes % (Manual) 3, Platelet Estimate Normal, RBC Morphology Normal 09/16/17 06:00: WBC 18.6 H, RBC 3.97 L, Hgb 12.4 L, Hct 38.7 L, MCV 97.5 H, MCH 31.2, MCHC 32.0, RDW 13.7, Plt Count 226, MPV 8.3, Neut % (Auto) 94.2 H, Lymph % (Auto) 3.2 L, [place] % (Auto) 2.5, Eos % (Auto) 0.0 L, Baso % (Auto) 0.1, Neut # (Auto) 17.5 H, Lymph # (Auto) 0.6 L, [place] # (Auto) 0.5, Eos # (Auto) 0.0, Baso # (Auto) 0.0 09/16/17 06:00: Sodium 142, Potassium 4.0, Chloride 110 H, Carbon Dioxide 24, Anion Gap 12.0, BUN 39 H D, Creatinine 1.37 H, Estimated Creat Clear 62, Estimated GFR 50 L, Est GFR ( Amer) 60, Glucose 145 H D, Calcium 8.2 L, Total Bilirubin 0.9, AST 44 H D, ALT 28 D, Alkaline Phosphatase 97, Total Protein 5.7 L, Albumin 1.8 L D, Globulin 3.9 H, Albumin/Globulin Ratio 0.5 L I & O for Last 24 hours: Intake & Output 09/13/17 09/14/17 09/15/17 09/16/17 11:59 11:59 11:59 11:59 Intake Total 366 / 366 2199 / 2199 2450 / 2450 Output Total 0 / 0 650 / 650 765 / 765 Balance 366 / 366 1549 / 1549 1685 / 1685 Weight 213 lb 3 oz 224 lb 3.362 oz - Constitutional no acute distress - *Routine Respiratory Exam Absent: respiratory distress - *Routine Abdominal Exam Present: soft Comments: dressings intact. small amount of fluid in JPs. no erythema. Progress Note: A&P (1) Cholecystitis with cholelithiasis Status: Acute Assessment and plan: overall, doing well s/p lap teddy with IOC ambulate abx slowly advance diet repeat CBC/CMP in AM continue JPs for now Current Visit: Yes
--- NOTE | 2017-09-16 07:17 | Progress Note ---
Internal Medicine - PN: Subj *Date: 09/16/17 *Time: 07:15 Interval history: Patient has no complaints and tells me his abdominal pain is better this morning. He does note a cough with deep breathing. Nursing staff reports good urine output. He has not had any nausea with liquids. Exam Vital signs and Labs for Last 24 Hours: Temp Pulse Resp BP Pulse Ox 97.9 F 88 28 H 133/77 93 L 09/16/17 06:00 09/16/17 06:00 09/16/17 06:00 09/16/17 06:00 09/16/17 06:00 Laboratory Results - last 24 hr 09/15/17 06:30: WBC 15.0 H, RBC 4.15 L, Hgb 13.3 L, Hct 40.8 L, MCV 98.3 H, MCH 32.0 H, MCHC 32.5, RDW 13.6, Plt Count 184, MPV 8.1, Neut % (Auto) 89.7 H, Lymph % (Auto) 5.3 L, [place] % (Auto) 4.5, Eos % (Auto) 0.3, Baso % (Auto) 0.1, Neut # (Auto) 13.4 H, Lymph # (Auto) 0.8, [place] # (Auto) 0.7, Eos # (Auto) 0.1, Baso # (Auto) 0.0, Total Counted 100, Neutrophils % (Manual) 93 H, Lymphocytes % (Manual) 4 L, Monocytes % (Manual) 3, Platelet Estimate Normal, RBC Morphology Normal 09/16/17 06:00: WBC 18.6 H, RBC 3.97 L, Hgb 12.4 L, Hct 38.7 L, MCV 97.5 H, MCH 31.2, MCHC 32.0, RDW 13.7, Plt Count 226, MPV 8.3, Neut % (Auto) 94.2 H, Lymph % (Auto) 3.2 L, [place] % (Auto) 2.5, Eos % (Auto) 0.0 L, Baso % (Auto) 0.1, Neut # (Auto) 17.5 H, Lymph # (Auto) 0.6 L, [place] # (Auto) 0.5, Eos # (Auto) 0.0, Baso # (Auto) 0.0 09/16/17 06:00: Sodium 142, Potassium 4.0, Chloride 110 H, Carbon Dioxide 24, Anion Gap 12.0, BUN 39 H D, Creatinine 1.37 H, Estimated Creat Clear 62, Estimated GFR 50 L, Est GFR ( Amer) 60, Glucose 145 H D, Calcium 8.2 L, Total Bilirubin 0.9, AST 44 H D, ALT 28 D, Alkaline Phosphatase 97, Total Protein 5.7 L, Albumin 1.8 L D, Globulin 3.9 H, Albumin/Globulin Ratio 0.5 L I & O for Last 24 hours: Intake & Output 09/13/17 09/14/17 09/15/17 09/16/17 11:59 11:59 11:59 11:59 Intake Total 366 / 366 2199 / 2199 2450 / 2450 Output Total 0 / 0 650 / 650 840 / 840 Balance 366 / 366 1549 / 1549 1610 / 1610 Weight 213 lb 3 oz 224 lb 3.362 oz Narrative: Patient looks well. Lungs are clear yet diminished posteriorly. Heart has a regular rate and rhythm. Abdomen is soft and nontender. Bowel sounds are diminished. GILDARDO drains in place. Lower extremities have SCDs in place. Assessment and Plan (1) Cholecystitis with cholelithiasis Current visit: Yes Status: Acute Qualifiers: Cholelithiasis location: gallbladder Cholecystitis acuity: acute Biliary obstruction: without biliary obstruction Qualified Code(s): K80.00 - Calculus of gallbladder with acute cholecystitis without obstruction Category: Medical Code(s): K80.10 - Calculus of gallbladder with chronic cholecystitis without obstruction - Assessment and plan all Dx Assessment and Plan for all problems:: Continue intravenous antibiotics. Encourage incentive spirometry use.
[2017-09-16 08:32] LABS: Lymphocytes % 4 % (10-50); Monocytes % 1 % (2-9); Neutrophils % 95 % (42-76); Total Cells Counted 100
[2017-09-16 08:36] LABS: RBC Morphology Normal
[2017-09-17 07:28] LABS: Albumin Level 1.9 gm/dL (3.4-5.0); Albumin/Globulin Ratio 0.5 (1.1-1.8); Anion Gap 10.8 mEq/L (5-15); Bilirubin,Total 0.7 mg/dL (0.2-1.0); Calcium 8.1 mg/dL (8.5-10.1); Globulin 3.9 gm/dl (1.3-3.2); Potassium 3.8 mmoL/L (3.5-5.1); Total Protein,Serum 5.8 gm/dL (6.4-8.2)
--- NOTE | 2017-09-17 07:41 | Progress Note ---
Internal Medicine - PN: Subj *Date: 09/17/17 *Time: 07:40 Interval history: Patient is without complaints this morning. Abdominal pain is improving. He believes he starting to feel hungry. Exam Vital signs and Labs for Last 24 Hours: Temp Pulse Resp BP Pulse Ox 97.6 F 75 17 108/70 90 L 09/17/17 04:00 09/17/17 04:00 09/17/17 04:00 09/17/17 04:00 09/17/17 04:00 Laboratory Results - last 24 hr 09/16/17 06:00: Total Counted 100, Neutrophils % (Manual) 95 H, Lymphocytes % ( Manual) 4 L, Monocytes % (Manual) 1 L, Platelet Estimate Normal, RBC Morphology Normal 09/17/17 06:20: Sodium 144, Potassium 3.8, Chloride 112 H, Carbon Dioxide 25, Anion Gap 10.8, BUN 52 H D, Creatinine 1.44 H, Estimated Creat Clear 59, Estimated GFR 47 L, Est GFR ( Amer) 57 L, Glucose 96, Calcium 8.1 L, Total Bilirubin 0.7, AST 32 D, ALT 24, Alkaline Phosphatase 89, Total Protein 5.8 L, Albumin 1.9 L, Globulin 3.9 H, Albumin/Globulin Ratio 0.5 L I & O for Last 24 hours: Intake & Output 09/14/17 09/15/17 09/16/17 09/17/17 11:59 11:59 11:59 11:59 Intake Total 366 / 366 2199 / 2199 2450 / 2450 480 / 480 Output Total 0 / 0 650 / 650 840 / 840 655 / 655 Balance 366 / 366 1549 / 1549 1610 / 1610 -175 / -175 Weight 213 lb 3 oz 224 lb 3.362 oz Narrative: He is in no distress. Lungs are clear. Heart is regular rate and rhythm. Abdomen is soft with mild right-sided tenderness but no rebound. Bowel sounds are present Assessment and Plan (1) Cholecystitis with cholelithiasis Current visit: Yes Status: Acute Qualifiers: Cholelithiasis location: gallbladder Cholecystitis acuity: acute Biliary obstruction: without biliary obstruction Qualified Code(s): K80.00 - Calculus of gallbladder with acute cholecystitis without obstruction Category: Medical Code(s): K80.10 - Calculus of gallbladder with chronic cholecystitis without obstruction - Assessment and plan all Dx Assessment and Plan for all problems:: Continue postoperative care. Patient's creatinine is gradually risen since admission and I am going to give him a liter of fluids today.
--- NOTE | 2017-09-17 07:44 | Progress Note ---
Subjective Patient reports: feels better Narrative: Patient states abdominal pain is better. Taking bland diet. Exam Vital signs and Labs for Last 24 Hours: Temp Pulse Resp BP Pulse Ox 97.6 F 86 18 124/88 93 L 09/17/17 07:39 09/17/17 07:39 09/17/17 07:39 09/17/17 07:39 09/17/17 07:39 Laboratory Results - last 24 hr 09/16/17 06:00: Total Counted 100, Neutrophils % (Manual) 95 H, Lymphocytes % ( Manual) 4 L, Monocytes % (Manual) 1 L, Platelet Estimate Normal, RBC Morphology Normal 09/17/17 06:20: Sodium 144, Potassium 3.8, Chloride 112 H, Carbon Dioxide 25, Anion Gap 10.8, BUN 52 H D, Creatinine 1.44 H, Estimated Creat Clear 59, Estimated GFR 47 L, Est GFR ( Amer) 57 L, Glucose 96, Calcium 8.1 L, Total Bilirubin 0.7, AST 32 D, ALT 24, Alkaline Phosphatase 89, Total Protein 5.8 L, Albumin 1.9 L, Globulin 3.9 H, Albumin/Globulin Ratio 0.5 L I & O for Last 24 hours: Intake & Output 09/14/17 09/15/17 09/16/17 09/17/17 11:59 11:59 11:59 11:59 Intake Total 366 / 366 2199 / 2199 2450 / 2450 960 / 960 Output Total 0 / 0 650 / 650 840 / 840 655 / 655 Balance 366 / 366 1549 / 1549 1610 / 1610 305 / 305 Weight 213 lb 3 oz 224 lb 3.362 oz - *Routine Abdominal Exam Present: distended. Absent: tenderness Comments: GILDARDO drains with some serosanguineous drainage. Progress Note: A&P (1) Cholecystitis with cholelithiasis Status: Acute Assessment and plan: Continue IV antibiotics. Mild ileus. Continue GILDARDO drains for now. Current Visit: Yes
[2017-09-17 08:15] LABS: Basophils % 0.1 % (0.1-2.0); Eosinophils # 0.1 K/mm3 (0.0-0.4); Eosinophils % 0.7 % (0.1-12.0); Hematocrit 35.8 % (42.0-52.0); Mean Corpuscular HGB Conc 33.5 g/dL (31.8-35.4); Mean Corpuscular Hemoglobin 31.7 pg (27.0-31.2); Mean Corpuscular Volume 94.6 fl (80-94); Mean Platelet Volume 8.2 fl (7.4-10.4); Monocytes # 0.6 K/mm3 (0.1-1.0); Monocytes % 4.1 % (1.7-9.3); Neutrophils # 13.1 K/mm3 (1.8-7.8); Neutrophils % 88.1 % (37.0-80.0); Platelet Count 240 K/mm3 (142-424); Red Blood Count 3.79 M/mm3 (4.60-6.20); Red Cell Distribution Width 13.7 % (11.5-17.5); White Blood Count 14.8 K/mm3 (4.8-10.8)
--- NOTE | 2017-09-17 11:36 | Progress Note ---
Internal Medicine - PN: Subj *Date: 09/17/17 *Time: 11:36 Exam Vital signs and Labs for Last 24 Hours: Temp Pulse Resp BP Pulse Ox 97.6 F 86 18 124/88 93 L 09/17/17 07:39 09/17/17 07:39 09/17/17 07:39 09/17/17 07:39 09/17/17 08:00 Laboratory Results - last 24 hr 09/17/17 06:20: WBC 14.8 H, RBC 3.79 L, Hgb 12.0 L, Hct 35.8 L, MCV 94.6 H, MCH 31.7 H, MCHC 33.5, RDW 13.7, Plt Count 240, MPV 8.2, Neut % (Auto) 88.1 H, Lymph % (Auto) 7.0 L, [place] % (Auto) 4.1, Eos % (Auto) 0.7, Baso % (Auto) 0.1, Neut # (Auto) 13.1 H, Lymph # (Auto) 1.0, [place] # (Auto) 0.6, Eos # (Auto) 0.1, Baso # (Auto) 0.0 09/17/17 06:20: Sodium 144, Potassium 3.8, Chloride 112 H, Carbon Dioxide 25, Anion Gap 10.8, BUN 52 H D, Creatinine 1.44 H, Estimated Creat Clear 59, Estimated GFR 47 L, Est GFR ( Amer) 57 L, Glucose 96, Calcium 8.1 L, Total Bilirubin 0.7, AST 32 D, ALT 24, Alkaline Phosphatase 89, Total Protein 5.8 L, Albumin 1.9 L, Globulin 3.9 H, Albumin/Globulin Ratio 0.5 L I & O for Last 24 hours: Intake & Output 09/14/17 09/15/17 09/16/17 09/17/17 23:59 23:59 23:59 23:59 Intake Total 1414 / 1414 3501 / 3501 580 / 580 960 / 960 Output Total 0 / 0 1075 / 1075 815 / 815 255 / 255 Balance 1414 / 1414 2426 / 2426 -235 / -235 705 / 705 Weight 96.7 kg 96.7 kg 101.7 kg Assessment and Plan (1) Cholecystitis with cholelithiasis Current visit: Yes Status: Acute Qualifiers: Cholelithiasis location: gallbladder Cholecystitis acuity: acute Biliary obstruction: without biliary obstruction Qualified Code(s): K80.00 - Calculus of gallbladder with acute cholecystitis without obstruction Category: Medical Code(s): K80.10 - Calculus of gallbladder with chronic cholecystitis without obstruction The patient's infection will respond to the chosen ABx?: Yes Is the patient receiving the right drug, dose, and route?: Yes Could a more targeted ABx be ordered?: No
[2017-09-17 11:56] LABS: Lymphocytes % 7 % (10-50); Monocytes % 4 % (2-9); Neutrophils % 86 % (42-76); Total Cells Counted 100
--- NOTE | 2017-09-17 15:30 | Progress Note ---
Subjective Patient reports: no new complaints Exam Vital signs and Labs for Last 24 Hours: Temp Pulse Resp BP Pulse Ox 97.6 F 86 18 124/88 93 L 09/17/17 07:39 09/17/17 07:39 09/17/17 07:39 09/17/17 07:39 09/17/17 08:00 Laboratory Results - last 24 hr 09/17/17 06:20: WBC 14.8 H, RBC 3.79 L, Hgb 12.0 L, Hct 35.8 L, MCV 94.6 H, MCH 31.7 H, MCHC 33.5, RDW 13.7, Plt Count 240, MPV 8.2, Neut % (Auto) 88.1 H, Lymph % (Auto) 7.0 L, [place] % (Auto) 4.1, Eos % (Auto) 0.7, Baso % (Auto) 0.1, Neut # (Auto) 13.1 H, Lymph # (Auto) 1.0, [place] # (Auto) 0.6, Eos # (Auto) 0.1, Baso # (Auto) 0.0, Total Counted 100, Neutrophils % (Manual) 86 H, Band Neutrophils % 3.0, Lymphocytes % (Manual) 7 L, Monocytes % (Manual) 4, Platelet Estimate Normal, RBC Morphology Not Reportable 09/17/17 06:20: Sodium 144, Potassium 3.8, Chloride 112 H, Carbon Dioxide 25, Anion Gap 10.8, BUN 52 H D, Creatinine 1.44 H, Estimated Creat Clear 59, Estimated GFR 47 L, Est GFR ( Amer) 57 L, Glucose 96, Calcium 8.1 L, Total Bilirubin 0.7, AST 32 D, ALT 24, Alkaline Phosphatase 89, Total Protein 5.8 L, Albumin 1.9 L, Globulin 3.9 H, Albumin/Globulin Ratio 0.5 L I & O for Last 24 hours: Intake & Output 09/15/17 09/16/17 09/17/17 09/18/17 11:59 11:59 11:59 11:59 Intake Total 2199 / 2199 2450 / 2450 1440 / 1440 Output Total 650 / 650 840 / 840 655 / 655 Balance 1549 / 1549 1610 / 1610 785 / 785 Weight 224 lb 3.362 oz - *Routine Abdominal Exam Present: tenderness Progress Note: A&P (1) Cholecystitis with cholelithiasis Status: Acute Assessment and plan: Patient does have findings consistent with mild ileus secondary to the inflammatory process and operative intervention. I will back him down to full liquid diet at this time from a bland diet. He does have a persistent leukocytosis. Continue intravenous antibiotics for several days. He does have objective findings of slight malnutrition with hypoalbuminemia and hypoproteinemia. Current Visit: Yes
[2017-09-18 06:52] LABS: Basophils % 0.3 % (0.1-2.0); Eosinophils # 0.3 K/mm3 (0.0-0.4); Eosinophils % 2.7 % (0.1-12.0); Hematocrit 38.1 % (42.0-52.0); Hemoglobin 12.4 g/dL (14.1-18.0); Lymphocytes # 1.1 K/mm3 (0.7-4.5); Lymphocytes % 8.7 K/mm3 (10-50); Mean Corpuscular HGB Conc 32.5 g/dL (31.8-35.4); Mean Corpuscular Hemoglobin 31.7 pg (27.0-31.2); Mean Corpuscular Volume 97.2 fl (80-94); Mean Platelet Volume 7.9 fl (7.4-10.4); Monocytes # 0.8 K/mm3 (0.1-1.0); Monocytes % 6.5 % (1.7-9.3); Neutrophils # 10.1 K/mm3 (1.8-7.8); Neutrophils % 81.8 % (37.0-80.0); Platelet Count 225 K/mm3 (142-424); Red Blood Count 3.92 M/mm3 (4.60-6.20); Red Cell Distribution Width 13.6 % (11.5-17.5); White Blood Count 12.4 K/mm3 (4.8-10.8)
[2017-09-18 07:07] LABS: Albumin Level 1.8 gm/dL (3.4-5.0); Albumin/Globulin Ratio 0.5 (1.1-1.8); Bilirubin,Total 1.1 mg/dL (0.2-1.0); Globulin 3.8 gm/dl (1.3-3.2); Total Protein,Serum 5.6 gm/dL (6.4-8.2)
--- NOTE | 2017-09-18 07:19 | Progress Note ---
Internal Medicine - PN: Subj *Date: 09/18/17 *Time: 07:18 Interval history: Patient has no complaints this morning. In the last 24 hours he has not had a bowel movement and may have passed a small amount of gas. He denies sensation of bloating. He feels like pain is improving. He has been ambulating Exam Vital signs and Labs for Last 24 Hours: Temp Pulse Resp BP Pulse Ox 98.5 F 87 22 114/75 92 L 09/18/17 04:00 09/18/17 04:00 09/18/17 04:00 09/18/17 04:00 09/18/17 04:30 Laboratory Results - last 24 hr 09/17/17 06:20: WBC 14.8 H, RBC 3.79 L, Hgb 12.0 L, Hct 35.8 L, MCV 94.6 H, MCH 31.7 H, MCHC 33.5, RDW 13.7, Plt Count 240, MPV 8.2, Neut % (Auto) 88.1 H, Lymph % (Auto) 7.0 L, [place] % (Auto) 4.1, Eos % (Auto) 0.7, Baso % (Auto) 0.1, Neut # (Auto) 13.1 H, Lymph # (Auto) 1.0, [place] # (Auto) 0.6, Eos # (Auto) 0.1, Baso # (Auto) 0.0, Total Counted 100, Neutrophils % (Manual) 86 H, Band Neutrophils % 3.0, Lymphocytes % (Manual) 7 L, Monocytes % (Manual) 4, Platelet Estimate Normal, RBC Morphology Not Reportable 09/17/17 06:20: Sodium 144, Potassium 3.8, Chloride 112 H, Carbon Dioxide 25, Anion Gap 10.8, BUN 52 H D, Creatinine 1.44 H, Estimated Creat Clear 59, Estimated GFR 47 L, Est GFR ( Amer) 57 L, Glucose 96, Calcium 8.1 L, Total Bilirubin 0.7, AST 32 D, ALT 24, Alkaline Phosphatase 89, Total Protein 5.8 L, Albumin 1.9 L, Globulin 3.9 H, Albumin/Globulin Ratio 0.5 L 09/18/17 06:28: WBC 12.4 H, RBC 3.92 L, Hgb 12.4 L, Hct 38.1 L, MCV 97.2 H, MCH 31.7 H, MCHC 32.5, RDW 13.6, Plt Count 225, MPV 7.9, Neut % (Auto) 81.8 H, Lymph % (Auto) 8.7 L, [place] % (Auto) 6.5, Eos % (Auto) 2.7, Baso % (Auto) 0.3, Neut # (Auto) 10.1 H, Lymph # (Auto) 1.1, [place] # (Auto) 0.8, Eos # (Auto) 0.3, Baso # (Auto) 0.0 09/18/17 06:28: Sodium 144, Potassium 4.0, Chloride 112 H, Carbon Dioxide 27, Anion Gap 9.0, BUN 41 H, Creatinine 1.17, Estimated Creat Clear 72, Estimated GFR 60, Est GFR ( Amer) 73 D, Glucose 101, Calcium 8.0 L, Total Bilirubin 1.1 H, AST 27, ALT 23, Alkaline Phosphatase 85, Total Protein 5.6 L, Albumin 1.8 L, Globulin 3.8 H, Albumin/Globulin Ratio 0.5 L I & O for Last 24 hours: Intake & Output 09/15/17 09/16/17 09/17/17 09/18/17 11:59 11:59 11:59 11:59 Intake Total 2199 / 2199 2450 / 2450 1440 / 1440 1000 / 1000 Output Total 650 / 650 840 / 840 655 / 655 100 / 100 Balance 1549 / 1549 1610 / 1610 785 / 785 900 / 900 Weight 224 lb 3.362 oz Narrative: He looks comfortable. Lungs are clear to auscultation. Heart has a regular rate and rhythm. Abdomen has right upper quadrant tenderness to palpation and drains are intact. Bowel sounds are hypoactive Assessment and Plan (1) Cholecystitis with cholelithiasis Current visit: Yes Status: Acute Qualifiers: Cholelithiasis location: gallbladder Cholecystitis acuity: acute Biliary obstruction: without biliary obstruction Qualified Code(s): K80.00 - Calculus of gallbladder with acute cholecystitis without obstruction Category: Medical Code(s): K80.10 - Calculus of gallbladder with chronic cholecystitis without obstruction - Assessment and plan all Dx Assessment and Plan for all problems:: 1. Continue liquid diet. Encourage patient to ambulate. Await resolution of ileus for further diet advancement. Repeat labs in a.m. as total bili did increase slightly compared to yesterday.
--- NOTE | 2017-09-18 14:08 | Progress Note ---
Subjective Patient reports: feels better, pain is less, tolerating liquids well (but poor appetite), flatus, no bowel movement Exam Vital signs and Labs for Last 24 Hours: Temp Pulse Resp BP Pulse Ox 98.0 F 94 H 18 123/62 92 L 09/18/17 08:00 09/18/17 08:00 09/18/17 08:00 09/18/17 08:00 09/18/17 08:00 Laboratory Results - last 24 hr 09/18/17 06:28: WBC 12.4 H, RBC 3.92 L, Hgb 12.4 L, Hct 38.1 L, MCV 97.2 H, MCH 31.7 H, MCHC 32.5, RDW 13.6, Plt Count 225, MPV 7.9, Neut % (Auto) 81.8 H, Lymph % (Auto) 8.7 L, [place] % (Auto) 6.5, Eos % (Auto) 2.7, Baso % (Auto) 0.3, Neut # (Auto) 10.1 H, Lymph # (Auto) 1.1, [place] # (Auto) 0.8, Eos # (Auto) 0.3, Baso # (Auto) 0.0 09/18/17 06:28: Sodium 144, Potassium 4.0, Chloride 112 H, Carbon Dioxide 27, Anion Gap 9.0, BUN 41 H, Creatinine 1.17, Estimated Creat Clear 72, Estimated GFR 60, Est GFR ( Amer) 73 D, Glucose 101, Calcium 8.0 L, Total Bilirubin 1.1 H, AST 27, ALT 23, Alkaline Phosphatase 85, Total Protein 5.6 L, Albumin 1.8 L, Globulin 3.8 H, Albumin/Globulin Ratio 0.5 L I & O for Last 24 hours: Intake & Output 09/15/17 09/16/17 09/17/17 09/18/17 23:59 23:59 23:59 23:59 Intake Total 3501 / 3501 580 / 580 1960 / 1960 120 / 120 Output Total 1075 / 1075 815 / 815 355 / 355 Balance 2426 / 2426 -235 / -235 1605 / 1605 120 / 120 Weight 213 lb 2.992 oz 224 lb 3.362 oz - *Routine Abdominal Exam Present: soft, surgical scars. Absent: distended, rebound, guarding Comments: soft, nondistended, appropriately tender, dressings in place. Drains with serous output. Progress Note: A&P (1) Cholecystitis with cholelithiasis Status: Acute Current Visit: Yes Assessment and Plan for All Diagnoses:: Doing well. Continue full liquid diet as tolerated. Still has mild ileus, passing flatus but no BM. Add suppository.
[2017-09-19 07:10] LABS: Basophils % 0.4 % (0.1-2.0); Eosinophils # 0.4 K/mm3 (0.0-0.4); Eosinophils % 3.2 % (0.1-12.0); Hematocrit 37.9 % (42.0-52.0); Hemoglobin 12.1 g/dL (14.1-18.0); Lymphocytes # 1.2 K/mm3 (0.7-4.5); Lymphocytes % 10.4 K/mm3 (10-50); Mean Corpuscular Hemoglobin 31.4 pg (27.0-31.2); Monocytes # 0.6 K/mm3 (0.1-1.0); Monocytes % 5.1 % (1.7-9.3); Neutrophils # 9.7 K/mm3 (1.8-7.8); Neutrophils % 80.9 % (37.0-80.0); Platelet Count 229 K/mm3 (142-424); Red Blood Count 3.87 M/mm3 (4.60-6.20); Red Cell Distribution Width 13.7 % (11.5-17.5); White Blood Count 11.9 K/mm3 (4.8-10.8)
[2017-09-19 07:15] LABS: Albumin/Globulin Ratio 0.5 (1.1-1.8); Bilirubin,Total 1.1 mg/dL (0.2-1.0); Calcium 8.5 mg/dL (8.5-10.1)
--- NOTE | 2017-09-19 08:19 | Progress Note ---
Internal Medicine - PN: Subj *Date: 09/19/17 *Time: 08:18 Interval history: Patient reports improvement in pain. He is not had a bowel movement but noticed increased flatus. He does feel hungry this morning. Exam Vital signs and Labs for Last 24 Hours: Temp Pulse Resp BP Pulse Ox 97.6 F 71 18 117/80 92 L 09/19/17 03:48 09/19/17 03:48 09/19/17 03:48 09/19/17 03:48 09/19/17 03:48 Laboratory Results - last 24 hr 09/19/17 06:31: WBC 11.9 H, RBC 3.87 L, Hgb 12.1 L, Hct 37.9 L, MCV 98.0 H, MCH 31.4 H, MCHC 32.0, RDW 13.7, Plt Count 229, MPV 8.0, Neut % (Auto) 80.9 H, Lymph % (Auto) 10.4, [place] % (Auto) 5.1, Eos % (Auto) 3.2, Baso % (Auto) 0.4, Neut # (Auto) 9.7 H, Lymph # (Auto) 1.2, [place] # (Auto) 0.6, Eos # (Auto) 0.4, Baso # (Auto) 0.0 09/19/17 06:31: Sodium 141, Potassium 4.0, Chloride 108 H, Carbon Dioxide 27, Anion Gap 10.0, BUN 33 H, Creatinine 1.06, Estimated Creat Clear 80, Estimated GFR 67, Est GFR ( Amer) 81, Glucose 101, Calcium 8.5, Total Bilirubin 1.1 H, AST 23, ALT 22, Alkaline Phosphatase 80, Total Protein 6.0 L, Albumin 2.0 L D, Globulin 4.0 H, Albumin/Globulin Ratio 0.5 L I & O for Last 24 hours: Intake & Output 09/16/17 09/17/17 09/18/17 09/19/17 11:59 11:59 11:59 11:59 Intake Total 2450 / 2450 1440 / 1440 1120 / 1120 310 / 310 Output Total 840 / 840 655 / 655 100 / 100 Balance 1610 / 1610 785 / 785 1020 / 1020 310 / 310 Weight 224 lb 3.362 oz Narrative: He looks well sitting up in the chair. Lungs are clear. Heart has a regular rate and rhythm. Abdomen is soft with right-sided tenderness. Bowel sounds are active. Assessment and Plan (1) Cholecystitis with cholelithiasis Current visit: Yes Status: Acute Qualifiers: Cholelithiasis location: gallbladder Cholecystitis acuity: acute Biliary obstruction: without biliary obstruction Qualified Code(s): K80.00 - Calculus of gallbladder with acute cholecystitis without obstruction Category: Medical Code(s): K80.10 - Calculus of gallbladder with chronic cholecystitis without obstruction - Assessment and plan all Dx Assessment and Plan for all problems:: Advance diet Encourage ambulation Continue antibiotics
--- NOTE | 2017-09-19 13:26 | Progress Note ---
Subjective Narrative: No acute events overnight. Pain is controlled. Ambulating with walker around room and once in hallway with assistance. Appetite on full liquids is about the same. Increased flatus with suppository yesterday but no bowel movements yet. Exam Vital signs and Labs for Last 24 Hours: Temp Pulse Resp BP Pulse Ox 98.0 F 70 16 118/64 94 L 09/19/17 08:00 09/19/17 08:00 09/19/17 08:00 09/19/17 08:00 09/19/17 08:00 Laboratory Results - last 24 hr 09/19/17 06:31: WBC 11.9 H, RBC 3.87 L, Hgb 12.1 L, Hct 37.9 L, MCV 98.0 H, MCH 31.4 H, MCHC 32.0, RDW 13.7, Plt Count 229, MPV 8.0, Neut % (Auto) 80.9 H, Lymph % (Auto) 10.4, [place] % (Auto) 5.1, Eos % (Auto) 3.2, Baso % (Auto) 0.4, Neut # (Auto) 9.7 H, Lymph # (Auto) 1.2, [place] # (Auto) 0.6, Eos # (Auto) 0.4, Baso # (Auto) 0.0 09/19/17 06:31: Sodium 141, Potassium 4.0, Chloride 108 H, Carbon Dioxide 27, Anion Gap 10.0, BUN 33 H, Creatinine 1.06, Estimated Creat Clear 80, Estimated GFR 67, Est GFR ( Amer) 81, Glucose 101, Calcium 8.5, Total Bilirubin 1.1 H, AST 23, ALT 22, Alkaline Phosphatase 80, Total Protein 6.0 L, Albumin 2.0 L D, Globulin 4.0 H, Albumin/Globulin Ratio 0.5 L I & O for Last 24 hours: Intake & Output 09/16/17 09/17/17 09/18/17 09/19/17 23:59 23:59 23:59 23:59 Intake Total 580 / 580 1960 / 1960 120 / 120 790 / 790 Output Total 815 / 815 355 / 355 Balance -235 / -235 1605 / 1605 120 / 120 790 / 790 Weight 224 lb 3.362 oz - *Routine Respiratory Exam Present: CTA bilaterally. Absent: accessory muscle use, decreased breath sounds - *Routine Cardiovascular Exam Present: RRR. Absent: bradycardia, tachycardia, irregular rhythm - *Routine Abdominal Exam Comments: soft, nondistended, minimally tender in RUQ, dressings clean and intact. Drain output x2 serous. Progress Note: A&P (1) Cholecystitis with cholelithiasis Status: Acute Current Visit: Yes Assessment and Plan for All Diagnoses:: Continues to improve, WBC down to 11.9 Continue diet, advance as tolerated. Continue PRN suppository. Continue ambulation with assistance. Continue antibiotics.
--- NOTE | 2017-09-20 07:17 | Progress Note ---
Internal Medicine - PN: Subj *Date: 09/20/17 *Time: 07:16 Interval history: Patient is feeling better. Continues to have flatus but no bowel movement yet. He tolerated diet yesterday. He does admit to some short of breath especially with exertion. Tells me he was doing better with the incentive spirometer yesterday than he has this morning Exam Vital signs and Labs for Last 24 Hours: Temp Pulse Resp BP Pulse Ox 98.1 F 66 20 105/69 95 09/20/17 04:00 09/20/17 04:00 09/20/17 04:00 09/20/17 04:00 09/20/17 04:00 Laboratory Results - last 24 hr 09/19/17 06:31: WBC 11.9 H, RBC 3.87 L, Hgb 12.1 L, Hct 37.9 L, MCV 98.0 H, MCH 31.4 H, MCHC 32.0, RDW 13.7, Plt Count 229, MPV 8.0, Neut % (Auto) 80.9 H, Lymph % (Auto) 10.4, [place] % (Auto) 5.1, Eos % (Auto) 3.2, Baso % (Auto) 0.4, Neut # (Auto) 9.7 H, Lymph # (Auto) 1.2, [place] # (Auto) 0.6, Eos # (Auto) 0.4, Baso # (Auto) 0.0 09/19/17 06:31: Sodium 141, Potassium 4.0, Chloride 108 H, Carbon Dioxide 27, Anion Gap 10.0, BUN 33 H, Creatinine 1.06, Estimated Creat Clear 80, Estimated GFR 67, Est GFR ( Amer) 81, Glucose 101, Calcium 8.5, Total Bilirubin 1.1 H, AST 23, ALT 22, Alkaline Phosphatase 80, Total Protein 6.0 L, Albumin 2.0 L D, Globulin 4.0 H, Albumin/Globulin Ratio 0.5 L I & O for Last 24 hours: Intake & Output 09/17/17 09/18/17 09/19/17 09/20/17 11:59 11:59 11:59 11:59 Intake Total 1440 / 1440 1120 / 1120 790 / 790 660 / 660 Output Total 655 / 655 100 / 100 606 / 606 Balance 785 / 785 1020 / 1020 790 / 790 54 / 54 Weight 217 lb 2.485 oz Narrative: He looks well. Lungs are diminished at the bases. Heart has a regular rate and rhythm. Abdomen is soft, nontender, nondistended. Assessment and Plan (1) Cholecystitis with cholelithiasis Current visit: Yes Status: Acute Qualifiers: Cholelithiasis location: gallbladder Cholecystitis acuity: acute Biliary obstruction: without biliary obstruction Qualified Code(s): K80.00 - Calculus of gallbladder with acute cholecystitis without obstruction Category: Medical Code(s): K80.10 - Calculus of gallbladder with chronic cholecystitis without obstruction - Assessment and plan all Dx Assessment and Plan for all problems:: 1. Postoperative management per Dr. Pitts 2. I suspect he has got some small pleural effusions. Check a chest x-ray this morning.
--- NOTE | 2017-09-20 07:59 | Progress Note ---
Subjective Patient reports: feels better Narrative: Appetite better. Tolerating diet without difficulty. Exam Vital signs and Labs for Last 24 Hours: Temp Pulse Resp BP Pulse Ox 98.6 F 71 18 116/69 94 L 09/20/17 07:41 09/20/17 07:41 09/20/17 07:41 09/20/17 07:41 09/20/17 07:41 I & O for Last 24 hours: Intake & Output 09/17/17 09/18/17 09/19/17 09/20/17 11:59 11:59 11:59 11:59 Intake Total 1440 / 1440 1120 / 1120 790 / 790 660 / 660 Output Total 655 / 655 100 / 100 606 / 606 Balance 785 / 785 1020 / 1020 790 / 790 54 / 54 Weight 217 lb 2.485 oz - *Routine Abdominal Exam Present: soft, drain Progress Note: A&P (1) Cholecystitis with cholelithiasis Status: Acute Assessment and plan: DC drains today. Okay from surgical standpoint to discharge later today, pending CXR pulmonary status. Current Visit: Yes
--- NOTE | 2017-09-21 07:10 | Discharge Summary ---
General - General Admission date: 09/13/17 Discharge date: 09/21/17 HPI HPI: Patient is a pleasant 82-year-old white male. He states that last week on he had developed significant nausea and vomiting. This had persisted and he had presented to the urgent treatment center. He was given IV fluids which helped. He had developed some right-sided abdominal pain. This became progressively significantly severe yesterday evening and he presented to the emergency department. He underwent CT scan of the abdomen and pelvis which revealed findings suggestive of cholecystitis. He was admitted for inpatient management. He was started on intravenous Invanz. Gallbladder ultrasound was ordered. This reveals findings for gallstones, minimal pericholecystic fluid, normal common bile duct. Surgical consultation was obtained. Hospital Course Hospital Course: Patient was admitted on the , on the surgical evaluation was obtained and ultrasound was consistent with findings of cholelithiasis with cholecystitis. Patient was scheduled for surgery on the . Patient underwent laparoscopic cholecystectomy with findings of peritonitis during surgery. Postoperatively patient was maintained on IV antibiotics. Postoperatively he progressed without complication. On September seen the patient complained of shortness of breath in the morning and a chest x-ray was suggestive of right middle and right lower lobe pneumonia. There is also presence of an effusion. Patient was given intravenous Lasix. His white count had been trending down since surgery. Lasix seemed to improve his respiratory status as did duo nebs. On the the patient's lung exam had diminished breath sounds in the right base with an expiratory wheeze. He is maintaining room air sats. He was discharged home. Patient will follow-up in my office in 3 days. Patient will follow-up with Dr. Pitts as instructed per discharge instructions Objective Vital signs: Temp Pulse Resp BP Pulse Ox 97.4 F L 64 18 107/72 92 L 09/21/17 03:58 09/21/17 05:57 09/21/17 03:58 09/21/17 03:58 09/21/17 05:57 DS: Diagnosis - Discharge Diagnosis (1) Cholecystitis with cholelithiasis Status: Acute (2) Pneumonia Status: Acute Discharge Plan - Patient Discharge Instructions ACTIVITY: Continue current activity DIET: continue same diet - Follow up Plan Follow up with: Jaime Cleveland MD [Primary Care Provider] - Disposition: Home, Self-Nursing Home Medications: Home Medications Medication Instructions Recorded Confirmed Type Amlodipine Besylate [Norvasc 10mg 10 mg PO DAILY 09/10/17 09/14/17 History tablet] Aspirin [Aspir 81] 81 mg PO DAILY 09/10/17 09/14/17 History Niacin [Niacin ER] 500 mg PO DAILY 09/10/17 09/14/17 History Pravastatin Sodium [Pravachol 40mg 40 mg PO DAILY 09/10/17 09/14/17 History Tablet] Meclizine HCl [Meclizine 12.5mg 12.5 mg PO Q8 PRN 09/14/17 09/17/17 History Tab] Atenolol [Atenolol 25mg Tab] 25 mg PO DAILY 09/17/17 09/17/17 History Prescriptions/Medication Reconciliation: New levoFLOXacin [Levofloxacin 750MG Tablet] 750 mg PO DAILY #3 tab Continue Pravastatin Sodium [Pravachol 40mg Tablet] 40 mg PO DAILY Niacin [Niacin ER] 500 mg PO DAILY Amlodipine Besylate [Norvasc 10mg tablet] 10 mg PO DAILY Aspirin [Aspir 81] 81 mg PO DAILY Meclizine HCl [Meclizine 12.5mg Tab] 12.5 mg PO Q8 PRN PRN Reason: Dizziness Atenolol [Atenolol 25mg Tab] 25 mg PO DAILY
[2017-09-21 07:39] LABS: Basophils % 0.5 % (0.1-2.0); Eosinophils # 0.3 K/mm3 (0.0-0.4); Hematocrit 34.4 % (42.0-52.0); Hemoglobin 11.2 g/dL (14.1-18.0); Lymphocytes # 1.3 K/mm3 (0.7-4.5); Lymphocytes % 17.8 K/mm3 (10-50); Mean Corpuscular HGB Conc 32.4 g/dL (31.8-35.4); Mean Corpuscular Hemoglobin 31.8 pg (27.0-31.2); Monocytes # 0.5 K/mm3 (0.1-1.0); Monocytes % 7.2 % (1.7-9.3); Neutrophils # 5.2 K/mm3 (1.8-7.8); Neutrophils % 70.5 % (37.0-80.0); Platelet Count 232 K/mm3 (142-424); Red Blood Count 3.51 M/mm3 (4.60-6.20); Red Cell Distribution Width 13.5 % (11.5-17.5); White Blood Count 7.3 K/mm3 (4.8-10.8)
[2017-09-21 07:50] LABS: Anion Gap 11.4 mEq/L (5-15); Potassium 4.4 mmoL/L (3.5-5.1)
[2017-09-21 08:20] VITALS: BP 106/65
== END 2017-09-21 09:30 | disposition home or self-care (01) ==
LOC: ER 20:50 → 2ND 23:19 → ICU 09-15 16:40 → 2ND 09-16 18:17
PROVIDERS: ADMIT Family Medicine; ATTEND Family Medicine

== ENCOUNTER → 2017-09-24 11:09 | Outpatient (CLI) | payer MEDICARE, SELFPAY ==
--- NOTE | 2017-09-24 11:17 | XR_ITS ---
XR chest 2V COMPARISON: PA and lateral chest 09/20/2017 HISTORY: Follow-up pneumonia TECHNIQUE: PA and lateral chest FINDINGS: There is been partial clearing of the ill-defined right lower lobe pneumonic infiltrates from the previous study. Again noted is elevation right hemidiaphragm and I suspect a subpulmonic pleural effusion. The right upper lung field and left lung field remain clear. There is aortic tortuosity with mild cardiomegaly is no evidence of failure. Sternal wire sutures are noted. IMPRESSION: Partial clearing of ill-defined right lower lobe pneumonia, persistent subpulmonic pleural effusion with very little if any improvement from the previous study
== END ==
PROVIDERS: PCP Family Medicine; Visit Provider Family Medicine
DX: J18.1 Lobar pneumonia, unspecified organism (principal)
CPT/HCPCS: 71046

== ENCOUNTER → 2017-10-21 14:37 | Outpatient (CLI) | payer MEDICARE, SELFPAY ==
--- NOTE | 2017-10-21 14:47 | XR_ITS ---
XR chest 2V HISTORY: ITS.REASON: PNEUMONIA ORDERING PHYSICIAN: Jaime Cleveland MD PATIENT AGE: 82 years COMPARISON: 09/24/2017 FINDINGS: The cardiomediastinal silhouette and pulmonary vascularity are within normal limits. Prior CABG Right lower lobe pneumonia is once again noted. Slightly improved laterally. There is elevated right hemidiaphragm. There is a small right pleural effusion which may be slightly smaller compared to the previous exam. The left lung is clear. IMPRESSION: Persistent but slightly improved right lower lobe pneumonia with small right effusion
== END ==
PROVIDERS: PCP Family Medicine; Visit Provider Family Medicine
DX: J18.1 Lobar pneumonia, unspecified organism (principal)
CPT/HCPCS: 71046

== ENCOUNTER → 2017-12-21 14:26 | Outpatient (CLI) | payer MEDICARE, SELFPAY ==
--- NOTE | 2017-12-21 14:29 | XR_ITS ---
XR chest 2V HISTORY: ITS.REASON: PNEUMONIA ORDERING PHYSICIAN: Jaime Cleveland MD PATIENT AGE: 82 years COMPARISON: PA and lateral chest 10/21/2017 FINDINGS: The lung mendez are fairly well expanded. Minimal infiltrate or post inflammatory scarring remains in right infrahilar region. However there has been interval resolution of small right pleural effusion. Right upper lung field and left lung field are clear. Overall cardiac size is normal though there is mild aortic tortuosity. Sternal wire sutures and surgical clips are again noted from previous CABG. IMPRESSION: Probable minimal post inflammatory scarring remaining at the right base versus atelectasis or residual pneumonia
== END ==
PROVIDERS: PCP Family Medicine; Visit Provider Family Medicine
DX: J18.1 Lobar pneumonia, unspecified organism (principal)
CPT/HCPCS: 71046

== ENCOUNTER → 2021-07-30 12:48 | Outpatient (CLI) | payer MEDICARE, SELFPAY ==
--- NOTE | 2021-07-30 12:53 | XR_ITS ---
FINAL REPORT CLINICAL HISTORY: RT SHOULDER PAIN FINDINGS: RIGHT SHOULDER Three views demonstrate no acute fracture or dislocation. There are mild hypertrophic changes of the a.c. joint. The visualized bony structures are well aligned. No soft tissue abnormality is seen. IMPRESSION: Mild a.c. joint degenerative change. Reviewed, Interpreted and Dictated by Emerson Appiah MD Transcribed by Tyra Hilton Authenticated by Emerson Appiah MD on 07/30/2021 02:41:36 PM [facility]
--- NOTE | 2021-07-30 12:53 | XR_ITS ---
FINAL REPORT CLINICAL HISTORY: RT HIP PAIN FINDINGS: RIGHT HIP Three views demonstrate no acute fracture or dislocation. There is advanced right hip joint space narrowing. There is subchondral sclerosis and osteophyte formation consistent with osteoarthritis. No soft tissue abnormality is seen. IMPRESSION: Advanced changes of osteoarthritis. Reviewed, Interpreted and Dictated by Emerson Appiah MD Transcribed by Tyra Hilton Authenticated by Emerson Appiah MD on 07/30/2021 02:41:[address] [facility]
== END ==
PROVIDERS: PCP Family Medicine; Visit Provider Family Medicine
DX: M25.511 Pain in right shoulder (principal); M25.551 Pain in right hip
CPT/HCPCS: 73030; 73502

== ENCOUNTER → 2021-09-27 10:45 | Outpatient (CLI) | payer MEDICARE, SELFPAY | PROVIDERS: Visit Provider Ophthalmology | DX: Z01.812 Encounter for preprocedural laboratory examination (principal); Z11.52 Encounter for screening for COVID-19 | CPT/HCPCS: C9803; U0003; U0005 ==

== ENCOUNTER 2021-09-30 07:05 | Day surgery (SDC) | payer MEDICARE, SELFPAY ==
[2021-09-29 08:14] VITALS: BMI 27.3
[2021-09-30 07:21] VITALS: BP 126/71; PULSE 62; RESP 18; TEMP 37; O2SAT 98
[2021-09-30 08:37] VITALS: RESP 18
[2021-09-30 09:11] VITALS: BP 118/76; PULSE 55; RESP 18; O2SAT 96
[2021-09-30 09:49] VITALS: BP 118/76; PULSE 55; RESP 18; TEMP 36.7; O2SAT 96
== END 2021-09-30 09:12 | disposition home or self-care (01) ==
LOC: OR 07:06
PROVIDERS: PCP Nurse Practitioner Family; Visit Provider Ophthalmology
DX: H25.813 Combined forms of age-related cataract, bilateral (principal); H31.011 Macula scars of posterior pole (postinflammatory) (post-traumatic), right eye; H53.142 Visual discomfort, left eye; H02.423 Myogenic ptosis of bilateral eyelids
CPT/HCPCS: 66984; V2632

== ENCOUNTER → 2022-03-27 11:40 | Outpatient (CLI) | payer MEDICARE, SELFPAY ==
--- NOTE | 2022-03-27 11:45 | XR_ITS ---
FINAL REPORT CLINICAL HISTORY: SOB x 1 month COMPARISON: 10/21/2017 FINDINGS: Two views of the chest were obtained. There are postoperative changes from median sternotomy. There is cardiomegaly. The mediastinum is normal. There are worsening right lung opacities which may represent localized infiltrates or masses. There is a small right pleural effusion. There is no pneumothorax. The bony thorax is intact. IMPRESSION: Worsening right lung opacities. Recommend follow-up radiographs or chest CT for further evaluation. Small right pleural effusion. Reviewed, Interpreted and Dictated by Compa Palencia III, MD Transcribed by Nola Walden Authenticated and [facility]
== END ==
PROVIDERS: PCP Nurse Practitioner Family; Visit Provider Nurse Practitioner Family
DX: R06.02 Shortness of breath (principal)
CPT/HCPCS: 71046

== ENCOUNTER 2022-04-03 01:49 | Inpatient (IN) | payer MEDICARE, SELFPAY ==
[2022-04-03] VITALS (14 sets, daily range): BP systolic 106–125; BP diastolic 68–80; PULSE 69–91; RESP 16–25; TEMP 36.3–37.2; O2SAT 86–97; BMI 26.5; BMI 27.2
--- NOTE | 2022-04-03 01:56 | ECG_ITS ---
APPROVED REPORT Exam: Resting ECG HR:81 bpm ECG Measurements Heart Rate 81 AXES KS 196 P 43 QRSd 140 QRS 25 QT 397 T 73 QTc 434 Conclusion SINUS RHYTHM WITH OCCASIONAL VENTRICULAR PREMATURE COMPLEXES RIGHT BUNDLE BRANCH BLOCK [120+ ms QRS DURATION, UPRIGHT V1, 40+ ms S IN I/aVL/V4/V5/V6] ABNORMAL ECG UNCONFIRMED REPORT Electronically signed by : Jaime Lau MD 04/05/2022 21:21:44
--- NOTE | 2022-04-03 02:05 | XR_ITS ---
PROCEDURE INFORMATION: Exam: XR Chest Exam date and time: 04/03/2022 2:21 AM Age: 87 years old Clinical indication: Shortness of breath; Additional info: SOA TECHNIQUE: Imaging protocol: Radiologic exam of the chest. Views: 1 view. COMPARISON: CR XR CHEST 2V 03/27/2022 11:50 AM FINDINGS: Tubes, catheters and devices: Surgical clips project over the left lung apex. Lungs: Consolidation in the right mid lung and right lung base concerning for pneumonia. Pleural spaces: No pleural effusion. No pneumothorax. Heart/Mediastinum: No acute findings or cardiomegaly. Vasculature: Tortuous aorta. Bones/joints: Status post sternotomy. IMPRESSION: Consolidation in the right mid lung and right lung base concerning for pneumonia.
--- NOTE | 2022-04-03 02:09 | PC.NURSE ---
Dr. Carranza at
--- NOTE | 2022-04-03 02:09 | PC.NURSE ---
RAD at for CXR
--- NOTE | 2022-04-03 02:17 | HMH.EDSOB ---
Discharge Plan Disposition Patient Disposition: Admitted As Inpatient Chief Complaint: Shortness of Breath/Dyspnea Prescriptions Prescriptions: No Action pravastatin 40 MG Tablet 40 mg PO DAILY Label Comments: niacin 500 MG Tab.Er.24h 500 mg PO DAILY Label Comments: amlodipine 10 MG Tablet 10 mg PO DAILY Label Comments: NORVASC EVERY OTHER DAY aspirin [Aspir-81] 81 MG Tablet.Dr 81 mg PO DAILY meclizine 12.5 MG Tablet 12.5 mg PO Q8 PRN (Reason: Dizziness) atenolol 25 MG Tablet 25 mg PO DAILY meclizine 25 MG tablet 25 mg PO BID PRN (Reason: Dizziness) Qty: 10 0RF Referrals Follow up/Referrals: Anali Miller APRN [Primary Care Provider] - See instructions Clinical Impressions Clinical Impression: Community acquired pneumonia Discharge ED Provider: Perry Carranza Resp/SOB HPI General Chief Complaint: Shortness of Breath/Dyspnea Stated Complaint: SOA Time Seen by Provider: 04/03/22 02:18 Mode of Arrival: Ambulatory Source of Information: Patient, Spouse and Medical Record Limitations: No Limitations Description of Symptoms (Recalled from ER Triage Doc. by RN): Pt reports SOA w/ exertion that he is being evaluated for by his PCP but it has gotten worse tonight. Pt denies chest pain or SOA at rest, only with exertion. Pt is scheduled for a chest CT wednesday and is to follow up with cardiology . History of Present Illness has sob with exertion and has seen pcp - no prod cough MD Complaint: shortness of breath Onset (ago): day(s) Context: occurred during exertion Severity: moderate Treatment prior to arrival: none Related Data Home oxygen amount: none Home Medications Medication Instructions Recorded Confirmed amlodipine 10 mg tablet 10 mg PO DAILY Hypertension 09/10/17 03/03/19 aspirin 81 mg tablet,delayed 81 mg PO DAILY HEART HEALTH 09/10/17 03/03/19 release (Aspir-) niacin 500 mg tablet,extended 500 mg PO DAILY Cholesterol 09/10/17 03/03/19 release 24 hr pravastatin 40 mg tablet 40 mg PO DAILY Cholesterol 09/10/17 03/03/19 meclizine 12.5 mg tablet 12.5 mg PO Q8 PRN Dizziness 09/14/17 03/03/19 atenolol 25 mg tablet 25 mg PO DAILY Asthma 09/17/17 03/03/19 Previous Rx's Medication Instructions Recorded meclizine 25 mg tablet 25 mg PO BID PRN Dizziness #10 tabs 03/03/19 Allergies Allergy/AdvReac Type Severity Reaction Status Date / Time No Known Allergies Allergy Verified 10/08/17 10:07 Well's Criteria PE Score Clinical signs/symptoms of DVT: No PE is #1 diagnosis or equally likely: Yes Heart rate is > 100: No Immobile at least 3 days, or surgery in past 4 wks: Yes Previously, obj. diagnosed PE or DVT: No Hemoptysis: No Malignancy w/Rx within 6mo, or palliative: No PE Score: 4 Risk of Pulmonary Embolism by score: >3 pts=Hi Risk (78%) PFSH PFSH Social History Smoking Status: Former smoker pack-years: 25 second hand exposure: Yes alcohol intake: never counseling provided: none substance use type: denies use current occupational status: retired Travel in the last 8 weeks: None household members: spouse housing: house current occupational exposures/hazards: No caffeine: Yes ROS Obtained: Yes All systems reviewed & no additional complaints except as documented Constitutional Constitutional: Reports fatigue Cardiovascular Cardiovascular: Reports dyspnea and Reports dyspnea on exertion Respiratory Respiratory: Reports as per HPI, Reports dyspnea and Reports dyspnea on exertion Endocrine Endocrine: Reports fatigue Physical Exam General General appearance: alert Head Head exam: normocephalic Eye Eye exam: Present PERRL and EOMI ENT ENT exam: Present mucous membranes dry Neck Neck exam: Present trachea midline Respiratory Respiratory exam: Present other (dec bs with rales on lt ) Cardiovascular Cardiovascular exam: Present regular rate, systolic murmur and +S4 Abdominal Ex
[2022-04-03 02:18] LABS: Basophils # 0.1 K/mm3 (0-0.2); Basophils % 0.8 % (0.1-2.0); Eosinophils # 0.7 K/mm3 (0.0-0.4); Eosinophils % 7.1 % (0.1-12.0); Hematocrit 42.6 % (42.0-52.0); Hemoglobin 13.5 g/dL (14.1-18.0); Lymphocytes % 9.9 % (10-50); Mean Corpuscular HGB Conc 31.7 g/dL (31.8-35.4); Mean Corpuscular Hemoglobin 31.5 pg (27.0-31.2); Mean Corpuscular Volume 99.6 fl (80-94); Mean Platelet Volume 8.1 fl (7.4-10.4); Monocytes # 0.5 K/mm3 (0.1-1.0); Monocytes % 4.9 % (1.7-9.3); Neutrophils # 8.1 K/mm3 (1.8-7.8); Neutrophils % 77.4 % (37.0-80.0); Platelet Count 292 K/mm3 (142-424); Red Blood Count 4.28 M/mm3 (4.60-6.20); White Blood Count 10.4 K/mm3 (4.8-10.8)
[2022-04-03 02:25] LABS: Alanine Aminotransferase 36 U/L (12-78); Albumin Level 3.1 g/dl (3.5-5.0); Alkaline Phosphatase 127 U/L (38-126); Aspartate Amino Transferase 38 U/L (17-59); Bilirubin,Direct 0.2 mg/dl (0.0-0.4); Bilirubin,Indirect 1.2 mg/dL (0.0-0.9); Bilirubin,Total 1.4 mg/dl (0.2-1.3); Bilirubin,Unconjugated 1.3 mg/dL (0.0-1.1); Total Protein,Serum 6.5 g/dl (6.3-8.2)
[2022-04-03 02:26] LABS: Anion Gap 16.2 mEq/L (5-15); Blood Urea Nitrogen 23 mg/dl (9-20); Calcium 8.2 mg/dl (8.4-10.2); Carbon Dioxide 24 mmol/L (22.0-30.0); Chloride 104 mmol/L (98-107); Creatinine Clearance Estimated 64 mL/min (50-200); Estimated Glomerular Filt Rate 80 ml/min (>60); GFR (African American) 97 ML/MIN (>60); Glucose 154 mg/dl (74-100); Potassium 4.2 mmoL/L (3.5-5.1); Sodium 140 mmol/L (136-145)
--- NOTE | 2022-04-03 02:34 | CT_ITS ---
PROCEDURE INFORMATION: Exam: CTA Chest With Contrast Exam date and time: 04/03/2022 2:46 AM Age: 87 years old Clinical indication: Shortness of breath; Prior surgery; Additional info: SOA w/ exertion TECHNIQUE: Imaging protocol: Computed tomographic angiography of the chest with contrast. 3D rendering (Not supervised by radiologist): MIP and/or 3D reconstructed images were created by the technologist. Radiation optimization: All CT scans at this facility use at least one of these dose optimization techniques: automated exposure control; mA and/or kV adjustment per patient size (includes targeted exams where dose is matched to clinical indication); or iterative reconstruction. Contrast material: ISOVUE 370; Contrast volume: 70 ml; Contrast route: INTRAVENOUS (IV); COMPARISON: CR XR CHEST PORTABLE 04/03/2022 2:21 AM FINDINGS: Pulmonary arteries: No pulmonary emboli. Aorta: Tortuous nonaneurysmal aorta. Lungs: Multiple foci of consolidation and interstitial airspace disease primarily in the right upper and lower lobes. Peribronchial thickening, best seen in the right lower lobe. 1.2 cm noncalcified pulmonary nodule in the medial left lower lobe, image 70 series 5. Pleural spaces: Small right-sided pleural effusion. Loculated fluid collections along the major fissure in the right lung, largest measuring approximately 5.1 x 2.5 x 2.9 cm. Heart: Mild cardiomegaly. There is atherosclerotic calcification of the coronary arteries. Lymph nodes: Paraesophageal, precarinal and AP window adenopathy is 1.3 cm, image 86 series 5. Epigastric adenopathy measures up to 1 point 3 cm. Diaphragm: Small hiatal hernia. Bones/joints: Status post sternotomy. Soft tissues: No acute findings. IMPRESSION: 1. Multifocal consolidation in the right upper and lower lobes concerning for pneumonia. Follow-up to document resolution is recommended. Peribronchial thickening best seen in the right lower lobe. 2. 1.2 cm left lower lobe pulmonary nodule.For both low risk and high risk patients, consider CT Chest at 3 months, PET/CT, or biopsy. (Reference: Maira) 3. Mediastinal and epigastric adenopathy as described. REFERENCES: Maira Oneal, et al. Guidelines for Management of Incidental Pulmonary Nodules Detected on CT Images: From the Fleischner Society 2017. Radiology. 2017;284(1):228-243.
[2022-04-03 02:38] LABS: NT Pro Brain Natriuretic Pep. 1170 pg/mL (0-450); Troponin I 0.09 ng/ml (0.00-0.034)
[2022-04-03 03:27] LABS: Lactic Acid 1.2 mmol/L (0.7-2.1)
--- NOTE | 2022-04-03 04:31 | PC.NURSE ---
house called for bed for admit
[2022-04-03 04:38] LABS: Coronavirus 19, PCR Not Detected (NotDetected); Influenza A, PCR Not Detected (NotDetected); Influenza B, PCR Not Detected (NotDetected)
--- NOTE | 2022-04-03 04:40 | PC.NURSE ---
Hospitalist at bedside
--- NOTE | 2022-04-03 04:50 | EXP.HP ---
History of Present Illness *Admission Date: 04/03/22 *Reason for visit:: Shortness of air *History of present illness: Mr. Roe is a 87-year-old male with a past medical history that is positive for Hypertension, Hyperlipidemia and Benign Positional Vertigo. He presents to [facility] through the ER due to shortness of air that has been progressing over a 1 week period associated with a non-productive cough. The patient was seen on admission in the ER, he reports that he continued to have shortness of air that had worsened so he came into the ER for evaluation. In the ER, the patient is requiring 4 L via nasal cannula. CTA performed of the chest shows a multi-focal pneumonia of the right upper and lower lobes that is concerning for Pneumonia. The patient will be admitted with initial impression of Pneumonia. The patient will be placed on antibiotics, cultures will be ordered. The plan of care was discussed with the patient and his at bedside. Both verbalized understanding and agreement with the plan of care. [facility] Medical History (Updated 04/03/22 @ 04:58 by Kennedy Leavitt DNP) Benign positional vertigo Hyperlipidemia Hypertension Surgical History (Updated 04/03/22 @ 04:55 by Kennedy Leavitt DNP) History of cholecystectomy Hx of CABG Social History Smoking Status: Former smoker pack-years: 25 second hand exposure: Yes alcohol intake: never counseling provided: none substance use type: denies use current occupational status: retired Travel in the last 8 weeks: None household members: spouse housing: house current occupational exposures/hazards: No caffeine: Yes Review of Systems Constitutional Constitutional: Reports system reviewed and no additional complaints, except as documented Eyes Eyes: Reports system reviewed and no additional complaints, except as documented ENT Ears, Nose, Mouth, and Throat: Reports system reviewed and no additional complaints, except as documented *Cardiovascular Cardiovascular: Reports system reviewed and no additional complaints, except as documented and Reports dyspnea *Respiratory Respiratory: Reports chest congestion, Reports cough and Reports dyspnea *Gastrointestinal Gastrointestinal: Reports system reviewed and no additional complaints, except as documented *Genitourinary Genitourinary: Reports system reviewed and no additional complaints, except as documented *Musculoskeletal Musculoskeletal: Reports system reviewed and no additional complaints, except as documented Integumentary/Breasts Skin/Breast: Reports system reviewed and no additional complaints, except as documented *Neurologic Neurologic: Reports system reviewed and no additional complaints, except as documented Psychiatric Psychiatric: Reports system reviewed and no additional complaints, except as documented Endocrine Endocrine: Reports system reviewed and no additional complaints, except as documented Allergic/Immunologic Allergic/Immunologic: Reports system reviewed and no additional complaints, except as documented Meds Home Medications and Allergies Home Medications Medication Instructions Recorded Confirmed Type amlodipine 10 mg tablet 10 mg PO DAILY Hypertension 09/10/17 03/03/19 History aspirin 81 mg tablet,delayed 81 mg PO DAILY HEART HEALTH 09/10/17 03/03/19 History release (Aspir-) niacin 500 mg tablet,extended 500 mg PO DAILY Cholesterol 09/10/17 03/03/19 History release 24 hr pravastatin 40 mg tablet 40 mg PO DAILY Cholesterol 09/10/17 03/03/19 History meclizine 12.5 mg tablet 12.5 mg PO Q8 PRN Dizziness 09/14/17 03/03/19 History atenolol 25 mg tablet 25 mg PO DAILY Asthma 09/17/17 03/03/19 History meclizine 25 mg tablet 25 mg PO BID PRN Dizziness #10 tabs 03/03/19 Rx New Prescriptions to Start Prescriptions: Allergies Allergy/AdvReac Type Severity Reaction Status Date / Time No
[2022-04-03 05:14] LABS: Adenovirus,PCR Not Detected (NotDetected); Bordetella Pertussis Not Detected (NotDetected); Chlamydophila Pneumoniae, PCR Not Detected (NotDetected); Coronavirus 19, PCR Not Detected (NotDetected); Coronavirus 229E Not Detected (NotDetected); Coronavirus NL63 Not Detected (NotDetected); Coronavirus OC43 Not Detected (NotDetected); Coronovirus HKU1,PCR Not Detected (NotDetected); Human Metapneumovirus Not Detected (NotDetected); Influenza A, PCR Not Detected (NotDetected); Influenza AH1, 2009 Not Detected (NotDetected); Influenza AH1, PCR Not Detected (NotDetected); Influenza AH3,PCR Not Detected (NotDetected); Influenza B, PCR Not Detected (NotDetected); Mycoplasma Pneumoniae, PCR Not Detected (NotDetected); Parainfluenza 1, PCR Not Detected (NotDetected); Parainfluenza 2, PCR Not Detected (NotDetected); Parainfluenza 3, PCR Not Detected (NotDetected); Parainfluenza 4, PCR Not Detected (NotDetected); Respiratory Syncytial Virus Not Detected (NotDetected); Rhinovirus/Enterovirus Not Detected (NotDetected)
--- NOTE | 2022-04-03 05:39 | PC.NURSE ---
PT ARRIVED TO FLOOR VIA WHEELCHAIR AT THIS TIME
[2022-04-03 05:45] LABS: Troponin I 0.07 ng/ml (0.00-0.034)
[2022-04-03 08:56] LABS: Troponin I 0.06 ng/ml (0.00-0.034)
--- NOTE | 2022-04-03 10:16 | PC.NURSE ---
courtesy tech mariusz: pt is lying in bed and is wanting to take a nap. lights are dimmed and call light is within reach.
--- NOTE | 2022-04-03 10:30 | HMH.SLDYSPHA ---
Speech & Language Evaluation Speech/Language Dysphagia Evaluation Start: 04/03/22 09:56 Freq: ONCE Status: Active Protocol: Document 04/03/22 09:56 VALERIE (Rec: 04/03/22 10:30 JUDYANNMARIENATHALY [id number]) Dysphagia Assess/Goals/Plan Assessment Date of Evaluation: 04/03/22 Evaluation Type Initial Certification Assessment/Problems Pt assessed at the bedside for a clinical swallow evaluation following aspiration concerns per MD order. Does Patient Qualify for Service Yes Qualify/Failure Comment Further assessment of MBSS required to rule out silent aspiration. Recommendations PHYSICIAN CERTIFICATION: The specified therapy services are required, authorized, and reviewed every 30 days. Comment Further assessment of MBSS required to rule out silent aspiration and safely recommend diet 2' chest xray exhibited s/sxs of pna. Plan Pt/Guardian verbally ack understanding Yes of dx/prognosis/goals G -code Required No Education Instructions provided JUNIOR SOFTWARE ENGINEER provided education of silent aspiration, purpose of a modified barium swallow study, and discussed diet recommendations. Pt and expressed interest in completing as a safety precaution. JUNIOR SOFTWARE ENGINEER discussd plan with case management, patient, and s.o. who also expressed understanding. Pt/Caregiver able to recall information Able to recall/restate Reinforcement needed No Speech & Language HPI History Present Illness Description of Patient Problem Mr. Roe is a 87-year-old male with a past medical history that is positive for Hypertension, Hyperlipidemia and Benign Positional Vertigo. He presents to [facility] through the ER due to shortness of air that has been progressing over a 1 week period associated with a non-productive cough. The patient was seen on admission in the ER, he reports that he continued to have shortnes
--- NOTE | 2022-04-03 10:31 | FL_ITS ---
FINAL REPORT CLINICAL HISTORY: pneumonia FINDINGS: MODIFIED BARIUM SWALLOW History: Dysphagia FINDINGS: Fluoroscopy was provided for the speech pathologist to evaluate the swallowing mechanism. The patient was given several different consistencies of barium while the swallow was visualized fluoroscopically. The report of the speech pathologist should be consulted prior to making dietary decisions. FLUOROSCOPY TIME: 1 minute 54 seconds IMPRESSION: Modified barium swallow under fluoroscopic guidance. Please see the report of the speech pathologist for Dietary recommendations. Films reviewed , interpreted and dictated by Dr. Palencia Transcribed by Nicola Krause PA-C. Reviewed, Interpreted and Dictated by Compa Palencia III, MD Transcribed by SONDRA Morillo Authenticated and [facility]
--- NOTE | 2022-04-03 11:27 | EXP.PULM.CON ---
History of Present Illness History of present illness: Mr. Roe is a 87-year-old man significant smoking history however last smoked in 1997, previously smoked cigars no baseline respiratory complaints, not using any inhalers presented to the hospital complaining worsening respiratory distress for the last 7 days progressively getting worse and recently presented to the hospital for further evaluation. [facility] Medical History (Updated 04/03/22 @ 12:37 by Alesha Yeager MD) Benign positional vertigo Eosinophilia Hilar lymphadenopathy Hyperlipidemia Hypertension Lung abscess Lung nodule Mediastinal lymphadenopathy Surgical History History of cholecystectomy Hx of CABG Hx of hernia repair Family History (Updated 04/03/22 @ 05:55 by Nadine Walters RN) Other Family history of diabetes mellitus type II Family history of stroke Social History (Updated 04/03/22 @ 05:55 by Nadine Walters RN) Smoking Status: Former smoker pack-years: 25 second hand exposure: Yes alcohol intake: never counseling provided: none substance use type: denies use current occupational status: retired Travel in the last 8 weeks: None household members: spouse housing: house current occupational exposures/hazards: No caffeine: Yes Review of Systems Constitutional Constitutional: Reports anorexia, Reports body ache(s) and Reports fatigue Eyes Eyes: Denies eye discharge, Denies dry eyes, Denies irritation and Denies itchy eyes ENT Ears, Nose, Mouth, and Throat: Denies epistaxis, Denies facial pain, Denies lip swelling and Denies throat swelling *Cardiovascular Cardiovascular: Reports dyspnea and Reports dyspnea on exertion *Respiratory Respiratory: Reports change in phlegm color, Reports chest congestion, Reports cough, Reports dyspnea, Reports dyspnea on exertion, Reports excessive phlegm production and Reports wheezing *Gastrointestinal Gastrointestinal: Denies abdominal pain, Denies belching and Denies cramping *Musculoskeletal Musculoskeletal: Reports back pain, Reports myalgias and Reports other (No small joint swelling or Pain) *Neurologic Neurologic: Reports system reviewed and no additional complaints, except as documented Psychiatric Psychiatric: Denies homicidal ideation and Denies suicidal ideation Endocrine Endocrine: Reports fatigue and Denies heat intolerance Hematologic/Lymphatic Hematologic/Lymphatic: Denies easy bleeding and Denies lymphadenopathy Allergic/Immunologic Allergic/Immunologic: Denies itchy eyes, Denies lip swelling, Denies throat swelling and Reports wheezing Pulmonology Exam Inpatient Vital signs and Labs for Last 24 Hours: Temp Pulse Resp BP Pulse Ox 98.3 F 89 16 112/75 93 L 04/03/22 08:00 04/03/22 08:00 04/03/22 08:00 04/03/22 08:00 04/03/22 08:00 Laboratory Results - last 24 hr 04/03/22 01:58: WBC 10.4, RBC 4.28 L, Hgb 13.5 L, Hct 42.6, MCV 99.6 H, MCH 31.5 H, MCHC 31.7 L, RDW 14.0, Plt Count 292, MPV 8.1, Neut % (Auto) 77.4, Lymph % (Auto) 9.9 L, Dundy % (Auto) 4.9, Eos % (Auto) 7.1, Baso % (Auto) 0.8, Neut # (Auto) 8.1 H, Lymph # (Auto) 1.0, Dundy # (Auto) 0.5, Eos # (Auto) 0.7 H, Baso # (Auto) 0.1 04/03/22 01:58: Sodium 140, Potassium 4.2, Chloride 104, Carbon Dioxide 24, Anion Gap 16.2 H, BUN 23 H, Creatinine 0.90, Estimated Creat Clear 64, Estimated GFR 80, Est GFR ( Amer) 97, Glucose 154 H, Calcium 8.2 L, Troponin I 0.09 H, NT-Pro-B Natriuret Pep 1170 H 04/03/22 01:58: Total Bilirubin 1.4 H, Direct Bilirubin 0.2, Conjugated Bilirubin 0.0, Indirect Bilirubin 1.2 H, Unconjugated Bilirubin 1.3 H, AST 38, ALT 36, Alkaline Phosphatase 127 H, Total Protein 6.5, Albumin 3.1 L 04/03/22 02:58: SARS-CoV-2 (PCR) Not detected, Influenza A Untype (PCR) Not detected, Influenza Type B (PCR) Not detected 04/03/22 02:58: Chlamy pneumoniae PCR Not detected, Adenovirus (PCR) Not detected, B. pertussis DNA (PCR) Not detected, Coronav
--- NOTE | 2022-04-03 14:46 | HMH.SLMBS2 ---
Speech & Language Evaluation Speech/Language Mod Barium Swallow Start: 04/03/22 10:31 Freq: ONCE Status: Complete Protocol: Document 04/03/22 13:38 VALERIE (Rec: 04/03/22 14:45 VALERIE [id number]) General Information General Current Food Consistancy Regular,Thin Liquids Dentition Poor Dentition Oxygen Status Room Air Patient Orientation Person,Place,Time,Situation Ability to Follow Directions Good Communication Ability Mild Impairment MBS Recommendations Diet Dietary Recommendations Regular,Thin Liquids Treatment/Strategies Strategy/Precaution Recommend Sitting Upright (90 deg),Chin Tuck,Double Swallow,No Straw, Small Bites and Sips,Alternate Liquids/Solids Mod Barium Swallow Impressions Summary and Impressions Oral Phase Impression Minimal Impairment Oral Phase Summary Pt demonstrated adequate lip seal around all presented bolus. Pt required minimal to no cues to swallow administered textures. When prompted to take consecutive sips of thin liquid barium, pt was noted to take breaks and required cues to attempt continuous multiple swallows. Pt demonstrated adequate BOT retraction and transfer of liquid bolus. Pt was noted to have extended latency time when masticating solids (both regular and mech. soft.) Pt was cued to take smaller bites , and this notably improved chewing and no residue was left in oral cavity. Pt demonstrated no withholding of any presented textures. Pt has noted adequate range of motion of his tongue with appropriate tongue lateralization. Bolus is noted to remain cohesive when manipulating during oral phase when presented with solids. Overall, pt demonstrates minimal impairment of the oral phase with only difficulty noted during larger consecutive sips of liquids
--- NOTE | 2022-04-03 16:44 | PC.NURSE ---
PT IS RESTING IN BED WITH FAMILY AT BEDSIDE. ALERT AND ORIENTED X4. EATING AND DRINKING WELL. AMBULATES TO THE BATHROOM. LUNG SOUNDS DIMINISHED. ABDOMEN SOFT/NON TENDER WITH ACTIVE BOWEL SOUNDS. WILL CONTINUE TO MONITOR.
--- NOTE | 2022-04-03 17:06 | EXP.PN ---
Subjective *Date: 04/03/22 *Time: 17:06 Interval history: The patient reports no acute events overnight. He reports that he is feeling better. He denies choking with food consumption or prior evaluations for aspiration pneumonia. He routinely gets care from . Kerrie Miller. This morning he is accompanied by his of 51 years. She has not identified any choking episodes with meal consumption. He is wearing a DNR bracelet and his goals of care is confirmed that he is DNR. I am accompanied by multiple members of the MDR team to evaluate the patient this morning. He is tolerating his antibiotic therapy with no adverse events. Exam Data for Last 24 hours Vital signs and Labs for Last 24 Hours: Temp Pulse Resp BP Pulse Ox 98.1 F 73 16 116/68 96 04/03/22 16:00 04/03/22 16:00 04/03/22 16:00 04/03/22 16:00 04/03/22 16:00 Laboratory Results - last 24 hr 04/03/22 01:58: WBC 10.4, RBC 4.28 L, Hgb 13.5 L, Hct 42.6, MCV 99.6 H, MCH 31.5 H, MCHC 31.7 L, RDW 14.0, Plt Count 292, MPV 8.1, Neut % (Auto) 77.4, Lymph % (Auto) 9.9 L, Mcdonough % (Auto) 4.9, Eos % (Auto) 7.1, Baso % (Auto) 0.8, Neut # (Auto) 8.1 H, Lymph # (Auto) 1.0, Mcdonough # (Auto) 0.5, Eos # (Auto) 0.7 H, Baso # (Auto) 0.1 04/03/22 01:58: Sodium 140, Potassium 4.2, Chloride 104, Carbon Dioxide 24, Anion Gap 16.2 H, BUN 23 H, Creatinine 0.90, Estimated Creat Clear 64, Estimated GFR 80, Est GFR ( Amer) 97, Glucose 154 H, Calcium 8.2 L, Troponin I 0.09 H, NT-Pro-B Natriuret Pep 1170 H 04/03/22 01:58: Total Bilirubin 1.4 H, Direct Bilirubin 0.2, Conjugated Bilirubin 0.0, Indirect Bilirubin 1.2 H, Unconjugated Bilirubin 1.3 H, AST 38, ALT 36, Alkaline Phosphatase 127 H, Total Protein 6.5, Albumin 3.1 L 04/03/22 02:58: SARS-CoV-2 (PCR) Not detected, Influenza A Untype (PCR) Not detected, Influenza Type B (PCR) Not detected 04/03/22 02:58: Chlamy pneumoniae PCR Not detected, Adenovirus (PCR) Not detected, B. pertussis DNA (PCR) Not detected, Coronavirus OC43 (PCR) Not detected, Coronavirus HKU1 (PCR) Not detected, Coronavirus 229E (PCR) Not detected, SARS-CoV-2 (PCR) Not detected, Coronavirus NL63 (PCR) Not detected, Human Metapneumovir PCR Not detected, Influenza A (H1) PCR Not detected, Influ A (H1N1/09) PCR Not detected, Influenza A (H3) PCR Not detected, Influenza Type A (PCR) Not detected, Influenza Type B (PCR) Not detected, M. pneumoniae (PCR) Not detected, Parainfluenza 1 (PCR) Not detected, Parainfluenza 2 (PCR) Not detected, Parainfluenza 3 (PCR) Not detected, Parainfluenza 4 (PCR) Not detected, RSV (PCR) Not detected, Entero/Rhino (PCR) Not detected 04/03/22 03:10: Lactate 1.2 04/03/22 05:07: Troponin I 0.07 H 04/03/22 08:26: Troponin I 0.06 H I & O for Last 24 hours: Intake & Output 03/31/22 04/01/22 04/02/22 04/03/22 23:59 23:59 23:59 23:59 Intake Total 720 / 720 Output Total 100 / 100 Balance 620 / 620 Weight 86.35 kg Constitutional Constitutional: no acute distress and average body habitus *Routine HEENT Exam Head: Present normocephalic and atraumatic Eye: Present EOMI and PERRL ENT: Present mucous membranes moist *Routine Neck Exam Neck: Present supple and trachea midline; Absent JVD or lymphadenopathy *Routine Respiratory Exam Respiratory: Present rhonchi, crackles and normal respiratory effort; Absent respiratory distress *Routine Cardiovascular Exam Cardiovascular: Present RRR, Normal S1 and Normal S2; Absent murmur *Routine Abdominal Exam Abdominal: Present soft and normoactive bowel sounds; Absent tenderness *Routine Extremities Exam Extremities: Present full ROM, pulses intact and normal capillary refill; Absent edema *Routine Skin Exam Skin: Present intact and warm; Absent rash *Routine Neurological Exam Neurological: Present alert, oriented X3, moving all extremities, vision grossly intact, hearing grossly intact and normal speech; Absent sensory deficit or motor deficit Routine Psychiatric Exam Psychiatric: Present normal affect
--- NOTE | 2022-04-03 17:17 | PC.NURSE ---
texted Toi about order for eval
[2022-04-04] VITALS (11 sets, daily range): BP systolic 95–117; BP diastolic 58–75; PULSE 66–87; RESP 16–18; TEMP 36.8–37.6; O2SAT 89–96
--- NOTE | 2022-04-04 04:32 | PC.NURSE ---
Shift summary: Pt has slept well t/o shift. Tolerating RA well with sats in upper 90s. No c/o voiced to staff. Daughter at bedside. Call light within reach.
--- NOTE | 2022-04-04 04:34 | PC.NURSE ---
patient had an unmeasured void
--- NOTE | 2022-04-04 11:09 | PC.NURSE ---
pt denies SOA at rest. he ambulated to the chair with sba from me. gait is steady. pt complains of increased work of breathing during ambulation. exp wheezing noted. sat @ rest is 90-92% pt currently on RA
--- NOTE | 2022-04-04 11:39 | EXP.PN ---
Subjective *Date: 04/04/22 *Time: 11:39 Interval history: The patient reports no acute events overnight. He is now saturating appropriately on room air. He has undergone a modified barium swallow evaluation. He is accompanied by his and older daughter who are at bedside. Carine FISH reports no fever with stable vital signs and saturating appropriately on room air. His IV antibiotic is being transitioned to p.o. He continues with nebulizer therapy. Exam Data for Last 24 hours Vital signs and Labs for Last 24 Hours: Temp Pulse Resp BP Pulse Ox 99.0 F 70 17 95/58 L 93 L 04/04/22 10:46 04/04/22 10:46 04/04/22 10:46 04/04/22 10:46 04/04/22 10:46 I & O for Last 24 hours: Intake & Output 04/01/22 04/02/22 04/03/22 04/04/22 23:59 23:59 23:59 23:59 Intake Total 960 / 960 300 / 300 Output Total 100 / 100 0 / 0 Balance 860 / 860 300 / 300 Weight 86.35 kg Constitutional Constitutional: no acute distress and average body habitus *Routine HEENT Exam Head: Present normocephalic and atraumatic Eye: Present EOMI and PERRL ENT: Present mucous membranes moist *Routine Neck Exam Neck: Present supple and trachea midline; Absent JVD or lymphadenopathy *Routine Respiratory Exam Respiratory: Present rhonchi, crackles and normal respiratory effort; Absent respiratory distress *Routine Cardiovascular Exam Cardiovascular: Present RRR, Normal S1 and Normal S2; Absent murmur *Routine Abdominal Exam Abdominal: Present soft and normoactive bowel sounds; Absent tenderness *Routine Extremities Exam Extremities: Present full ROM, pulses intact and normal capillary refill; Absent edema *Routine Skin Exam Skin: Present intact and warm; Absent rash *Routine Neurological Exam Neurological: Present alert, oriented X3, moving all extremities, vision grossly intact, hearing grossly intact and normal speech; Absent sensory deficit or motor deficit Routine Psychiatric Exam Psychiatric: Present normal affect, normal thought process, cooperative, good insight and good judgment Assessment and Plan *Assessment and plan (1) Community acquired pneumonia: Status: Acute Category: Medical Code(s): J18.9 - Pneumonia, unspecified organism (2) Lung nodule: Status: Acute Category: Medical Code(s): R91.1 - Solitary pulmonary nodule (3) Hilar lymphadenopathy: Status: Acute Category: Medical Code(s): R59.0 - Localized enlarged lymph nodes (4) Mediastinal lymphadenopathy: Status: Acute Category: Medical Code(s): R59.0 - Localized enlarged lymph nodes Plan Community-acquired pneumonia-multifocal pneumonia of right upper lobe and lower lobe on CT a chest, pulse oximetry monitoring with oxygen supplementation to maintain appropriate oxygen saturations currently saturating appropriately on room air. Speech therapy consult noted and he has undergone modified barium swallow evaluation. Pulmonology consult noted. Cultures pending. Transitioning IV antibiotics to Augmentin 500 mg p.o. 3 times daily with Lakeshia/Chicho inhalation therapy. Appropriate positioning during and after mealtime. Lung nodule-identified on CTA of chest, pulmonary consult noted with outpatient evaluation planned, tobacco use history noted Hypertension-routine blood pressure monitoring, dihydropyridine calcium channel csear therapy, beta-cesar therapy Hyperlipidemia-statin therapy, antiplatelet therapy, low-cholesterol diet The patient is hospitalized day 1 with above diagnoses complicated by his advanced age. We appreciate independent beauty consultant evaluation and ongoing recommendations. Case management is assisting with next site of care which is expected to be home with family. He is currently saturating appropriately on room air. Barriers to discharge currently include transitioning antibiotic therapy, trending labs and swallow evaluation. Expected date of discharge April 05, 2022.
--- NOTE | 2022-04-04 12:06 | HMH.PTEV ---
Physical Therapy Evaluation Rehab PT IP Evaluation Start: 04/04/22 17:10 Freq: ONCE Status: Active Protocol: Document 04/04/22 12:02 ESTER (Rec: 04/04/22 12:06 PWANTON [id number]) Subjective/History History History This is the initial IP PT evaluation for Usman Roe. Pt is an 87 y/o male admitted to [facility] for c/o SOA. Pt reports that over the last week he has increased in c/o SOA w/ activity. Subjective Subjective Pt reports no c/o SOA at time sitting in recliner - pt did have c/o SOA s/p walking where O2 sats dropped to 87% on RA Rehab PT IP Eval Objective Appearance Patient Behavior Appropriate,Cooperative Patient Orientation Place,Name,Birthday,Year Difficulty following instructions none Speech Pattern Clear,Appropriate Ambulation Patient Able to Ambulate Yes Ambulation Observation IP General Gait Pattern Observation Wide Based Gait,Shuffling Step Ambulation Distance (feet) 30 Ambulation Assistive Device None Ambulation Ability Supervision/Stand by Balance Ability to Arise Able, uses arms to help Sitting Balance Steady, safe Standing Balance Steady, wide stance Dynamic Sitting Balance Ability Good Dynamic Standing Balance Ability Fair Transfers Chair Transfer Ability Independent,Supervision/Stand by Sit to Stand Chair Transfer Ability Supervision/Stand by Rehab PT IP prob,goals,plan Problems Date of Evaluation: 04/04/22 Rehab Potential Rehab Potential Innapropriate for Skilled Therapy Discharge Plan PT Discharge Plan Pt safe to return home at this time - possible need for supp O2 at home s/p dc - no skilled therapy needs at this time G -code Required Yes Eval Complexity Eval Charge Codes 01607 - Low Complexity G Codes PT Current Status Self Care PT Current Status Modifier CI-At least 1% but less than 20% impaired, limited or restricted PT Goal Status Self Care PT Goal Status Modifer CI-At least 1% but less than 20% impaired, limited or restricted PHYSICIAN CERTIFICATION: I certify the specified the
--- NOTE | 2022-04-04 14:45 | PC.NURSE ---
pt completed walk test. pt noted to have shuffled gait and tends to lean forward during ambulation. o2 saturation dropped to 84% during ambulaiton on RA. pt recovered to the low 90s once at rest
--- NOTE | 2022-04-04 15:56 | PC.NURSE ---
pt has done well today. He has been tolerating RA well. has been unable to produce a sputum sample @ this time. has ambulated to the bathroom with sba several times.
[2022-04-05] VITALS (7 sets, daily range): BP systolic 101–109; BP diastolic 66–71; PULSE 70–81; RESP 18–22; TEMP 36.6–37.4; O2SAT 91–94; BMI 27.1
--- NOTE | 2022-04-05 03:57 | PC.NURSE ---
Pt alert and oriented x 4. At beginning of my shift pt c/o constipation. Pt says he hasn't had a BM since . Provider contacted and new orders received. Pt agreeable to plan. Medication given per order. BS active x 4. Pt has not rested very well this shift, he states he's not uncomfortable - he just can't sleep. Pt requested something to help him rest. Provider contacted, new orders received and carried out by this RN. Explained to pt and family about medication and to call out for help when pt needs to get up. Pt and family verbalized understanding. Pt is currently on RA. Maintaining O2 sat >90%. Lung sounds - expiratory wheezes. Pt receiving breathing tx as needed. Family at bedside. No other needs at this time. Call light in reach.
--- NOTE | 2022-04-05 05:06 | PC.NURSE ---
patient had one unmeasured void
--- NOTE | 2022-04-05 06:13 | PC.NURSE ---
patient had one unmeasured void
[2022-04-05 09:22] LABS: Basophils # 0.1 K/mm3 (0-0.2); Basophils % 0.9 % (0.1-2.0); Eosinophils # 0.5 K/mm3 (0.0-0.4); Eosinophils % 5.3 % (0.1-12.0); Hematocrit 36.2 % (42.0-52.0); Hemoglobin 11.8 g/dL (14.1-18.0); Lymphocytes # 0.6 K/mm3 (0.7-4.5); Lymphocytes % 6.9 % (10-50); Mean Corpuscular HGB Conc 32.6 g/dL (31.8-35.4); Mean Corpuscular Hemoglobin 32.4 pg (27.0-31.2); Mean Corpuscular Volume 99.4 fl (80-94); Mean Platelet Volume 7.9 fl (7.4-10.4); Monocytes # 0.5 K/mm3 (0.1-1.0); Monocytes % 5.5 % (1.7-9.3); Neutrophils # 7.1 K/mm3 (1.8-7.8); Neutrophils % 81.3 % (37.0-80.0); Platelet Count 278 K/mm3 (142-424); Red Blood Count 3.64 M/mm3 (4.60-6.20); White Blood Count 8.7 K/mm3 (4.8-10.8)
[2022-04-05 09:32] LABS: Chloride 105 mmol/L (98-107); Sodium 139 mmol/L (136-145)
[2022-04-05 09:35] LABS: Blood Urea Nitrogen 24 mg/dl (9-20); Creatinine Clearance Estimated 66 mL/min (50-200); Estimated Glomerular Filt Rate 71 ml/min (>60); GFR (African American) 86 ML/MIN (>60)
[2022-04-05 09:36] LABS: Calcium 7.7 mg/dl (8.4-10.2); Carbon Dioxide 27 mmol/L (22.0-30.0); Glucose 135 mg/dl (74-100)
[2022-04-05 10:35] LABS: Procalcitonin 0.327 ng/mL (0.0-2.0)
--- NOTE | 2022-04-05 11:34 | EXP.DC.SUM ---
General Admission date:: 04/03/22 Discharge date: 04/05/22 HPI HPI HPI: Mr. Roe is a 87-year-old male with a past medical history that is positive for Hypertension, Hyperlipidemia and Benign Positional Vertigo. He presents to [facility] through the ER due to shortness of air that has been progressing over a 1 week period associated with a non-productive cough. The patient was seen on admission in the ER, he reports that he continued to have shortness of air that had worsened so he came into the ER for evaluation. In the ER, the patient is requiring 4 L via nasal cannula. CTA performed of the chest shows a multi-focal pneumonia of the right upper and lower lobes that is concerning for Pneumonia. The patient will be admitted with initial impression of Pneumonia. The patient will be placed on antibiotics, cultures will be ordered. The plan of care was discussed with the patient and his at bedside. Both verbalized understanding and agreement with the plan of care. Hospital Course Hospital Course Hospital Course: The patient was admitted to the medical floor with pulmonology consult. Cultures were acquired and he was started on broad-spectrum antibiotic therapy. CT imaging of the chest was concerning for aspiration with lung nodule and mediastinal adenopathy. Pulmonology recommended outpatient evaluation. Speech therapy was consulted and recommended after modified barium swallow evaluation regular diet with thin liquids. His laboratory studies and inflammatory markers were trended and identified improvement. His blood cultures identified no growth to date. The patient identified improvement and inquired about discharge home. We requested a 6-minute walk test that identified the need for oxygen with ambulation. On day of discharge he is accompanied by his and his daughter Mary Anne who is a nurse at [employer]. She works for pulmonology group. He will be discharged on a course of Augmentin for aspiration pneumonia, Lakeshia/Chicho inhalation therapy and oxygen therapy during times of ambulation. He understands the importance of following up with his PCP Ms. Miller and his entry analyst as scheduled. Exam Data for Last 24 hours Vital signs and Labs for Last 24 Hours: Temp Pulse Resp BP Pulse Ox 99.0 F 81 22 102/66 L 92 L 04/05/22 07:41 04/05/22 07:41 04/05/22 07:41 04/05/22 07:41 04/05/22 08:00 Laboratory Results - last 24 hr 04/05/22 08:37: WBC 8.7, RBC 3.64 L, Hgb 11.8 L, Hct 36.2 L, MCV 99.4 H, MCH 32.4 H, MCHC 32.6, RDW 14.0, Plt Count 278, MPV 7.9, Neut % (Auto) 81.3 H, Lymph % (Auto) 6.9 L, [place] % (Auto) 5.5, Eos % (Auto) 5.3, Baso % (Auto) 0.9, Neut # (Auto) 7.1, Lymph # (Auto) 0.6 L, [place] # (Auto) 0.5, Eos # (Auto) 0.5 H, Baso # (Auto) 0.1 04/05/22 08:37: Sodium 139, Potassium 4.0, Chloride 105, Carbon Dioxide 27, Anion Gap 11.0, BUN 24 H, Creatinine 1.00, Estimated Creat Clear 66, Estimated GFR 71, Est GFR ( Amer) 86, Glucose 135 H, Calcium 7.7 L 04/05/22 08:37: Procalcitonin 0.327 I & O for Last 24 hours: Intake & Output 04/02/22 04/03/22 04/04/22 04/05/22 23:59 23:59 23:59 23:59 Intake Total 960 / 960 840 / 840 240 / 240 Output Total 100 / 100 1 / 1 0 / 0 Balance 860 / 860 839 / 839 240 / 240 Weight 86.35 kg 86.183 kg Microbiology Reports for the Last 24 Hours: Microbiology 04/03/22 03:10 Blood Blood Culture - Preliminary NO GROWTH AFTER 48 HOURS 04/03/22 03:10 Blood Blood Culture - Preliminary NO GROWTH AFTER 48 HOURS Constitutional Constitutional: no acute distress and average body habitus *Routine HEENT Exam Head: Present normocephalic and atraumatic Eye: Present EOMI and PERRL ENT: Present mucous membranes moist *Routine Neck Exam Neck: Present supple and trachea midline; Absent JVD or lymphadenopathy *Routine Respiratory Exam Respiratory: Present rhonchi, crackles and
--- NOTE | 2022-04-05 14:00 | PC.NURSE ---
pt has been discahrged from the unit via wheelchair with family. Discahrge education completed. pt has portable oxygen tank available if needed and [place] will be meeting them at their home when they arrive. pt is alert and appropriate. no complaints @ this time. denies any pain/. removed both saline locks and manager motor.
--- NOTE | 2022-04-06 14:48 | CARE MANAGER ---
Spoke with patient's related to discharge from hospital. She states that he has not had a bowel movement since . He is still short of breath and doesn't have an appetite. He has an appointment with Dr. Lovett on and will schedule appointment with Dr. Alcocer, and Anali Miller. We discussed patient's weakness and continued SOB. Patient/ interested in home health services. Will send information to [facility].
[2022-04-06 18:09] LABS: Body Fluid Culture, Sterile Not indicated. (.); Legionella pneumophila Urinary Negative (Negative); Organism ID Not indicated. (.); Specimen Source Urine (.); Streptococcus pneumoniae Ag Negative (Negative)
[2022-04-07 17:43] LABS: Strongyloides IgG Antibody Negative (Negative)
== END 2022-04-05 13:40 | disposition home or self-care (01) | DRG 193 ==
LOC: ER 04:31 → 2ND 04:45
PROVIDERS: Internal Medicine Pulmonary Disease; Nurse Practitioner Family; Admitting Provider Family Medicine; Emergency Provider Emergency Medicine; PCP Nurse Practitioner Family; Visit Provider Family Medicine
DX: J16.8 Pneumonia due to other specified infectious organisms (principal); J85.1 Abscess of lung with pneumonia; J82.89 Other pulmonary eosinophilia, not elsewhere classified; I10 Essential (primary) hypertension; E78.5 Hyperlipidemia, unspecified; R91.1 Solitary pulmonary nodule; Z87.891 Personal history of nicotine dependence; Z95.1 Presence of aortocoronary bypass graft
CPT/HCPCS: 36415; 70371; 71045; 71275; 80048; 80076; 83605; 83880; 84145; 84484; 85025; 86682; 87040; 87581; 87632; 87798; 87899; 92610; 92611; 93005; 94618; 94640; 97161; 99285; C9803; J0456; J0696; Q9967; U0003; U0005

== ENCOUNTER 2022-04-09 09:31 | Inpatient (IN) | payer MEDICARE, SELFPAY ==
[2022-04-09] VITALS (17 sets, daily range): BP systolic 82–113; BP diastolic 49–67; PULSE 80–108; RESP 18–33; TEMP 36.4–36.7; O2SAT 90–95; BMI 28.0
--- NOTE | 2022-04-09 09:55 | XR_ITS ---
FINAL REPORT CLINICAL HISTORY: SOA COMPARISON: April 03, 2022 FINDINGS: The heart size is normal. The mediastinum is within normal limits. There are worsening, right greater than left, opacities likely representing worsening pneumonia. There is no pneumothorax. The bony thorax is intact. IMPRESSION: Worsening bilateral pneumonia. Reviewed, Interpreted and Dictated by Compa Palencia III, MD Transcribed by Maykel Keen Authenticated and [facility]
--- NOTE | 2022-04-09 10:00 | CA_ITS ---
APPROVED REPORT EXAM: Comprehensive 2D, Doppler, and color-flow Echocardiogram Fulfillment Specialist: GERBER Banks, RVS Ht: 5 ft 9 in Wt: 190lbs BSA: 2.02 BP: 97/59 mmHg Indications: Right lobe pneumonia, CAD-Hx-CABG, SOB, Edema, CHF Echo Enhancing Agent Comments: Patient scanned upright and supine-Poor acoustics due to patient factors as well as lung impedence. 2D Dimensions IVSd 1.28 cm LVEF (Visual) 62.00 % PWd 0.86 cm LA Volume 36.20 mL LVDd 4.71 cm LA Volume Index 17.90 mL/m2 (M/F) 16-34 LVDs 3.14 cm Aortic Root 3.78 cm Left Atrium 3.51 cm LVOT 2.23 cm (M/F) 1.5-2.5 M-Mode Dimensions RVDd 2.85 cm (0.9-2.6) LA Diam 4.26 cm (1.9-4.0) LVDd 4.25 cm (3.5-5.7) Ao Diam 3.73 cm (2.0-3.7) LVDs 3.23 cm (3.5-5.7) IVSd 1.61 cm (0.6-1.1) PWd 1.36 cm (0.6-1.1) EF (Teich) 48.10% EPSs 0.68 cm FS 24.00% EDV (Teich) 80.80 mL TAPSE 1.15 (<1.7) ESV (Teich) 41.90 mL LV Diastology E Decel Time 250.00 (160-240 msec) E/A Ratio 0.66 MED E' 6.50 (< 7 cm/sec) MED A' 15.10 cm/s E'/MED E' Ratio 7.82 (>14) LAT E' 6.50 (<10 cm/sec) LAT A' 20.00 cm/s E/LAT E' Ratio 7.82 (>14) Aortic Valve LVOT Max 109.00 (70-110 cm/s) LVOT VTI 19.45 cm AoV Peak Patrick. 143.00 (50-130 cm/s) AO Peak GR. 8.20 mmHg AO Mean GR. 5.50 (<5 mmHg) AO VTI 24.87 (18-25 cm) HI (VTI) 3.05 (2.5-4.5 cm2) Mitral Valve MV A Velocity 77.00 (40-130 cm/s) E/A Ratio 0.66 MV Decel. Time 250.00 (160-240 ms) Pulmonary Valve PV Peak Velocity 76.00 (50-150 cm/s) NC End VMAX 160.00 cm/s Tricuspid Valve TR P. Velocity 236.00 cm/s RAP Estimate 10.00 mmHg RVSP 32.30 mmHg Left Ventricle Left atrium is mildly enlarged, left ventricle is normal size, mild concentric left ventricular hypertrophy, estimated ejection fraction 55% with no regional wall motion abnormality, grade 1 diastolic dysfunction seen without tissue Doppler evidence of raise left atrial pressure. Right Ventricle Right atrium and right ventricle are mildly enlarged with normal contractility. Aortic Valve Aortic valve is minimally thickened and fibrosed there is no aortic stenosis or aortic insufficiency. Mitral Valve Mitral valve leaflets are minimally thickened, there is mild mitral regurgitation. Tricuspid Valve Tricuspid valve grossly normal, there is mild tricuspid regurgitation, tricuspid regurgitation jet velocity is inadequate for calculation of the right ventricular systolic pressure. Pulmonic Valve Pulmonic valve is poorly visualized. Great Vessels Aortic root is normal size. Inferior vena cava is normal size with normal inspiratory collapse. Pericardium No significant pericardial effusion noted. Conclusion 1. Mild biatrial enlargement, normal left ventricular size, mild concentric left ventricular hypertrophy, estimated ejection fraction 55% with no regional wall motion abnormality, grade 1 diastolic dysfunction seen without tissue Doppler evidence of raise left atrial pressure. 2. Mildly enlarged right ventricle with normal contractility. 3. Mild mitral and tricuspid regurgitation. 4. No significant pericardial effusion noted. 5. Inferior vena cava is normal size with normal inspiratory collapse. Electronically signed by : Wellington Castro MD 04/10/2022 13:54:15
[2022-04-09 10:02] LABS: Basophils # 0.1 K/mm3 (0-0.2); Basophils % 0.5 % (0.1-2.0); Eosinophils # 0.7 K/mm3 (0.0-0.4); Eosinophils % 3.6 % (0.1-12.0); Hematocrit 41.7 % (42.0-52.0); Hemoglobin 13.3 g/dL (14.1-18.0); Lymphocytes # 0.5 K/mm3 (0.7-4.5); Lymphocytes % 2.9 % (10-50); Mean Corpuscular HGB Conc 31.9 g/dL (31.8-35.4); Mean Corpuscular Hemoglobin 31.6 pg (27.0-31.2); Mean Corpuscular Volume 98.8 fl (80-94); Mean Platelet Volume 8.2 fl (7.4-10.4); Monocytes # 0.5 K/mm3 (0.1-1.0); Monocytes % 2.8 % (1.7-9.3); Neutrophils # 17.2 K/mm3 (1.8-7.8); Neutrophils % 90.2 % (37.0-80.0); Platelet Count 381 K/mm3 (142-424); Red Blood Count 4.22 M/mm3 (4.60-6.20); Red Cell Distribution Width 14.1 % (11.5-17.5); White Blood Count 19.1 K/mm3 (4.8-10.8)
--- NOTE | 2022-04-09 10:03 | HMH.EDGENADL ---
Discharge Plan Disposition Patient Disposition: Admitted As Inpatient Condition: Serious Chief Complaint: Shortness of Breath/Dyspnea Prescriptions Prescriptions: No Action niacin 500 mg tablet extended release 24 hr 500 mg PO HS meclizine 25 mg tablet 25 mg PO BID PRN (Reason: .) pravastatin 40 MG tablet 40 mg PO DAILY Label Comments: amlodipine 10 MG tablet 10 mg PO DAILY Label Comments: NORVASC EVERY OTHER DAY atenolol 25 MG tablet 25 mg PO DAILY amoxicillin-pot clavulanate [Augmentin] 500-125 mg tablet 1 tab PO TID Combivent Respimat 20-100 mcg/actuation mist 1 puff inhalation QID Rx Instructions: space evenly during waking hours aspirin 81 mg Tablet,Delayed Release (Dr/Ec) 81 mg PO DAILY Referrals Follow up/Referrals: Anali Miller APRN [Primary Care Provider] - See instructions Clinical Impressions Clinical Impression: HCAP (healthcare-associated pneumonia), Sepsis, Acute respiratory failure with hypoxia, Edema, peripheral Discharge ED Provider: Jax Day General Adult HPI General Chief complaint: Shortness of Breath/Dyspnea Stated complaint: sob, swelling in ankles Time Seen by Provider: 04/09/22 09:50 Mode of Arrival: Wheelchair Source of Information: Patient and Spouse Limitations: No Limitations Description of Symptoms (Recalled from ER Triage Doc. by RN): Patient sent over from Dr. Urrutia office. Patient c/o SOA. Patient was discharged from [facility] on wednesday. History of Present Illness HPI narrative: History obtained from patient, his , and SONDRA Holder, for Dr. Lovett. [place] called as the patient arrived. The patient was being seen in their office today. He notes that the patient has a large amount of edema of his legs, blood pressure of 85 systolic, increasing shortness of breath since recent hospital discharge. He suspects congestive heart failure. He has spoken to Dr. Wade, hospitalist. Plan is to admit the patient after emergency department evaluation. He requests echocardiogram. He was discharged from this hospital on Wednesday. Reportedly treated for pneumonia. He was short of breath before coming to the hospital for that admission and shortness of breath has persisted, but he has worsening dyspnea on exertion. He has been on 2 L nasal cannula oxygen since discharge from the hospital. Related Data Home Medications Medication Instructions Recorded Confirmed amlodipine 10 mg tablet 10 mg PO DAILY Hypertension 09/10/17 04/09/22 pravastatin 40 mg tablet 40 mg PO DAILY Cholesterol 09/10/17 04/09/22 atenolol 25 mg tablet 25 mg PO DAILY Hypertension 09/17/17 04/09/22 aspirin 81 mg tablet,delayed 81 mg PO DAILY HEART HEALTH 04/03/22 04/09/22 release amoxicillin 500 mg-potassium 1 tab PO TID antibiotic 04/09/22 04/09/22 clavulanate 125 mg tablet (Augmentin) ipratropium 20 mcg-albuterol 100 1 puff inhalation QID SOA 04/09/22 04/09/22 mcg/actuation mist for inhalation (Combivent Respimat) meclizine 25 mg tablet 25 mg PO BID PRN . 04/09/22 04/09/22 niacin 500 mg tablet,extended 500 mg PO HS cholesterol 04/09/22 04/09/22 release 24 hr Allergies Allergy/AdvReac Type Severity Reaction Status Date / Time No Known Allergies Allergy Verified 04/09/22 08:52 PFSH PFS Medical History (Updated 04/09/22 @ 12:15 by Jax Day MD) Benign positional vertigo Coronary artery disease Edema of both lower extremities Eosinophilia Hilar lymphadenopathy Hyperlipidemia Hypertension Lung nodule Mediastinal lymphadenopathy Surgical History (Updated 04/09/22 @ 08:58 by Syeda Sloan, RN) History of cholecystectomy Hx of CABG Hx of hernia repair S/P CABG x 3 Family History Other Family history of diabetes mellitus type II Family history of stroke Social History Smoking Sta
[2022-04-09 10:04] LABS: MANUAL DIFFERENTIAL MANUAL DIFFERENTIAL (MANUAL DIFF)
--- NOTE | 2022-04-09 10:06 | PC.NURSE ---
portable rad at bedside
[2022-04-09 10:09] LABS: Alanine Aminotransferase 37 U/L (12-78); Albumin Level 3.1 g/dl (3.5-5.0); Albumin/Globulin Ratio 0.9 (1.1-1.8); Alkaline Phosphatase 121 U/L (38-126); Anion Gap 18.1 mEq/L (5-15); Aspartate Amino Transferase 44 U/L (17-59); Bilirubin,Total 1.9 mg/dl (0.2-1.3); Blood Urea Nitrogen 56 mg/dl (9-20); Calcium 8.8 mg/dl (8.4-10.2); Carbon Dioxide 23 mmol/L (22.0-30.0); Chloride 102 mmol/L (98-107); Creatinine Clearance Estimated 55 mL/min (50-200); Estimated Glomerular Filt Rate 58 ml/min (>60); GFR (African American) 70 ML/MIN (>60); Globulin 3.5 g/dL (1.3-3.2); Glucose 91 mg/dl (74-100); Potassium 4.1 mmoL/L (3.5-5.1); Sodium 139 mmol/L (136-145); Total Protein,Serum 6.6 g/dl (6.3-8.2)
--- NOTE | 2022-04-09 10:10 | PC.NURSE ---
covid swab sent to lab
[2022-04-09 10:12] LABS: Coronavirus 19, PCR Not Detected (NotDetected); Influenza A, PCR Not Detected (NotDetected); Influenza B, PCR Not Detected (NotDetected)
[2022-04-09 10:21] LABS: NT Pro Brain Natriuretic Pep. 1920 pg/mL (0-450)
[2022-04-09 10:23] LABS: Troponin I < 0.01 ng/ml (0.00-0.034)
[2022-04-09 10:45] LABS: Lymphocytes % 1 % (10-50); Monocytes % 5 % (2-9); Neutrophils % 94 % (42-76); Platelet Estimate Normal; Total Cells Counted 100
[2022-04-09 10:46] LABS: RBC Morphology Normal
[2022-04-09 10:46] LABS: Lactic Acid 1.7 mmol/L (0.7-2.1)
--- NOTE | 2022-04-09 10:47 | PC.NURSE ---
vascular in with pt for an echo
--- NOTE | 2022-04-09 11:11 | PC.NURSE ---
vascular done with echo
--- NOTE | 2022-04-09 11:59 | PC.NURSE ---
speaking to hospitalist
--- NOTE | 2022-04-09 12:01 | PC.NURSE ---
called pharmacy for abx
--- NOTE | 2022-04-09 12:02 | EXP.PHA.CONS ---
Pharmacy Consult Date: 04/09/22 Time: 12:02 Referring provider: DR. QUINTERO Reason for Consult:: VANCOMYCIN DOSING Allergies Allergy/AdvReac Type Severity Reaction Status Date / Time No Known Allergies Allergy Verified 04/09/22 08:52 Home Medications Medication Instructions Recorded Confirmed Type amlodipine 10 mg tablet 10 mg PO DAILY Hypertension 09/10/17 04/09/22 History pravastatin 40 mg tablet 40 mg PO DAILY Cholesterol 09/10/17 04/09/22 History atenolol 25 mg tablet 25 mg PO DAILY Hypertension 09/17/17 04/09/22 History aspirin 81 mg tablet,delayed 81 mg PO DAILY HEART HEALTH 04/03/22 04/09/22 History release amoxicillin 500 mg-potassium 1 tab PO TID antibiotic 04/09/22 04/09/22 History clavulanate 125 mg tablet (Augmentin) ipratropium 20 mcg-albuterol 100 1 puff inhalation QID SOA 04/09/22 04/09/22 History mcg/actuation mist for inhalation (Combivent Respimat) meclizine 25 mg tablet 25 mg PO BID PRN . 04/09/22 04/09/22 History niacin 500 mg tablet,extended 500 mg PO HS cholesterol 04/09/22 04/09/22 History release 24 hr New Prescriptions to Start Prescriptions: Height: 1.75 m Weight: 86.183 kg Laboratory Results:: Laboratory Results - last 24 hr 04/09/22 09:44: WBC 19.1 H, RBC 4.22 L, Hgb 13.3 L, Hct 41.7 L, MCV 98.8 H, MCH 31.6 H, MCHC 31.9, RDW 14.1, Plt Count 381, MPV 8.2, Neut % (Auto) 90.2 H, Lymph % (Auto) 2.9 L, [place] % (Auto) 2.8, Eos % (Auto) 3.6, Baso % (Auto) 0.5, Neut # (Auto) 17.2 H, Lymph # (Auto) 0.5 L, [place] # (Auto) 0.5, Eos # (Auto) 0.7 H, Baso # (Auto) 0.1, Total Counted 100, Neutrophils % (Manual) 94 H, Lymphocytes % (Manual) 1 L, Monocytes % (Manual) 5, Platelet Estimate Normal, RBC Morphology Normal 04/09/22 09:44: Sodium 139, Potassium 4.1, Chloride 102, Carbon Dioxide 23, Anion Gap 18.1 H, BUN 56 H, Creatinine 1.20, Estimated Creat Clear 55, Estimated GFR 58 L, Est GFR ( Amer) 70, Glucose 91, Calcium 8.8, Total Bilirubin 1.9 H, AST 44, ALT 37, Alkaline Phosphatase 121, Troponin I < 0.01, NT-Pro-B Natriuret Pep 1920 H, Total Protein 6.6, Albumin 3.1 L, Globulin 3.5 H, Albumin/Globulin Ratio 0.9 L 04/09/22 10:06: SARS-CoV-2 (PCR) Not detected, Influenza A Untype (PCR) Not detected, Influenza Type B (PCR) Not detected 04/09/22 10:16: Lactate 1.7 Medical History: Medical History (Updated 04/09/22 @ 09:27 by Syeda Sloan RN) Benign positional vertigo Coronary artery disease Edema of both lower extremities Eosinophilia Hilar lymphadenopathy Hyperlipidemia Hypertension Lung nodule Mediastinal lymphadenopathy Assessment and Plan Assessment and plan all Dx Assessment and Plan for all problems:: Pharmacokinetic dosing service Objective: Patient: Floor: Age: 87 yo Serum creatinine: 1.20 mg/dL Height: 69.0 Inches Weight (kg): 86.1 Assessment: IBW (kg): 70.70 Dosing wt(kg): 86.1 Estimated Creatinine clearance (ml/min): 45.0 CRCL method: Cockcroft and Gault using ibw(default). Drug selected: Vancomycin Loading dose (mg): Vd (liters): 64.6 (factor used: 0.75 L/kg) Rito (hr-1): 0.042 Half life (hrs): 16.50 CLvanco=?? 2.713 L/hr Recommended dose: 1500 mg Interval: 24 hrs Infusion time (hrs): 2.0 Predicted peak (mcg/mL): 35.1 Predicted trough (mcg/mL): 13.93 Total body weight is being used for vancomycin dosing. Recommendations: Give Vancomycin 1500 mg q 24 hrs with an expected Cpeak of 35.1 mcg/ml and an expected Ctrough of 13.93 mcg/ml AUC 0-24 /ANA MARIA Data: ANA MARIA 0.5 mcg/mL:?? AUC/ANA MARIA:? 1105.8 ANA MARIA 1.0 mcg/mL:?? AUC/ANA MARIA:? 552.9 --------- ANA MARIA 1.5 mcg/mL:?? AUC/ANA MARIA:? 368.6 ANA MARIA 2.0 mcg/mL:?? AUC/ANA MARIA:? 276.4 Thank you for the consult, will continue to follow. -OLGA LIDIA PITTMAN, YOUNGD
--- NOTE | 2022-04-09 12:02 | PC.NURSE ---
updated on POC
--- NOTE | 2022-04-09 12:26 | PC.NURSE ---
rounded on pt, asked if they needed anything and pt stated that they had no needs at this time
--- NOTE | 2022-04-09 12:41 | PC.NURSE ---
pt given pudding and jello instead of meal try that was brought due to family didn't think he would eat the hard food.
--- NOTE | 2022-04-09 13:16 | HMH.PHAINT1 ---
Pharmacy Intervention Comments: home medication list verified using list from previous discharge on 04/05/22
[2022-04-09 14:15] LABS: Troponin I < 0.01 ng/ml (0.00-0.034)
--- NOTE | 2022-04-09 14:18 | PC.NURSE ---
called report to elvia benítez
--- NOTE | 2022-04-09 14:26 | EXP.HP ---
History of Present Illness *Admission Date: 04/09/22 *Reason for visit:: Shortness of breath, cough, weakness *History of present illness: Mr. Roe is a pleasant 87-year-old male who presented to cardiology clinic today for follow-up. While in the clinic was noted to have low blood pressure, weakness, continued oxygen requirement after recent admission last weekend to [facility]. Given patient's symptoms, he was transferred to the ER for further evaluation. Concern at that time was for CHF exacerbation or worsening pneumonia. On arrival to the ER he reports increased shortness of breath and persistent cough since admission this past weekend. Has required continued oxygen which is new for him. Has had chills but no cecille fever. Poor appetite and decreased p.o. intake. Work-up in the ER including labs and imaging showed worsening right lower lobe pneumonia, elevated BNP, worsening leukocytosis (19 K). Medicine contacted for admission for worsening pneumonia and hypoxemic respiratory failure. Patient's heart rate, leukocytosis, pneumonia meet criteria for sepsis. Started on IV fluids and broad-spectrum antibiotics in the ER. After arriving to the floor, patient is alert and oriented. Denies any chest pain, nausea, vomiting. Has had some mild constipation. Complains of mild swelling in his legs. Dyspnea with exertion over the past several days that is worsened since last admission. Family at bedside, updated of plan. [facility] Medical History (Updated 04/09/22 @ 19:25 by Sven Wade MD) Benign positional vertigo Coronary artery disease Edema of both lower extremities Eosinophilia Hilar lymphadenopathy Hyperlipidemia Hypertension Lung abscess Lung nodule Mediastinal lymphadenopathy Surgical History History of cholecystectomy Hx of CABG Hx of hernia repair S/P CABG x 3 Family History Family history of stroke Family history of diabetes mellitus type II Social History Smoking Status: Never smoker second hand exposure: Yes alcohol intake: never counseling provided: none substance use type: denies use current occupational status: retired Travel in the last 8 weeks: None household members: spouse housing: house current occupational exposures/hazards: No caffeine: Yes Review of Systems Review of Systems Review of systems (narrative): 14 point review of systems performed, pertinent positives and negatives as per HPI Constitutional Constitutional: Denies headache(s) and Reports weakness ENT Ears, Nose, Mouth, and Throat: Denies headache(s) *Musculoskeletal Musculoskeletal: Denies numbness *Neurologic Neurologic: Denies headache(s), Denies numbness and Reports weakness Meds Home Medications and Allergies Home Medications Medication Instructions Recorded Confirmed Type amlodipine 10 mg tablet 10 mg PO DAILY Hypertension 09/10/17 04/09/22 History pravastatin 40 mg tablet 40 mg PO DAILY Cholesterol 09/10/17 04/09/22 History atenolol 25 mg tablet 25 mg PO DAILY Hypertension 09/17/17 04/09/22 History aspirin 81 mg tablet,delayed 81 mg PO DAILY Heart disease 04/03/22 04/09/22 History release amoxicillin 500 mg-potassium 1 tab PO TID antibiotic 04/09/22 04/09/22 History clavulanate 125 mg tablet (Augmentin) ipratropium 20 mcg-albuterol 100 1 puff inhalation QID SOA 04/09/22 04/09/22 History mcg/actuation mist for inhalation (Combivent Respimat) New Prescriptions to Start Prescriptions: Allergies Allergy/AdvReac Type Severity Reaction Status Date / Time No Known Allergies Allergy Verified 04/09/22 08:52 Exam Data for Last 24 hours Vital signs and Labs for Last 24 Hours: Temp Pulse Resp BP Pulse Ox 97.9 F 93 H 21 101/63 L 94 L 04/09/22 09:44 04/09/22 13:00 04/09/22 13:00
--- NOTE | 2022-04-09 15:04 | PC.NURSE ---
Pt arrived to the floor at this time
[2022-04-09 16:27] LABS: Troponin I < 0.01 ng/ml (0.00-0.034)
--- NOTE | 2022-04-09 17:19 | PC.NURSE ---
Pt arrived to the floor via wheelchair propelled by TEMITOPE Rao. He is alert and oriented x4. Some crackles noted posteriorly to right lung mendez. He is currently on 2L NC w/O2 sats measuring > 90%. +3 edema noted to BLE. He is currently resting in bed with family at bedside. Bed is locked and in the lowest position, call light is within reach.
[2022-04-10] VITALS (35 sets, daily range): BP systolic 78–124; BP diastolic 42–77; PULSE 90–124; RESP 18–28; TEMP 35.8–36.6; O2SAT 88–97; BMI 28.4
--- NOTE | 2022-04-10 01:45 | PC.NURSE ---
Received report from Mitzy Walden RN
--- NOTE | 2022-04-10 01:47 | PC.NURSE ---
RT at bedside to given breathing tx at this time
--- NOTE | 2022-04-10 02:06 | PC.NURSE ---
Pt reports breathing better since the duoneb treatment. Daughter requesting for patient to have a sleep aid, reports patient has not slept well. INTERNET SITE DESIGNER notified, reports she will put orders in. Updated patient and family.
--- NOTE | 2022-04-10 05:25 | PC.NURSE ---
Pt has strong loose cough, sputum cup at bedside, Pt instructed to spit into cup if coughs up any sputum. Pt voices understanding.
--- NOTE | 2022-04-10 05:38 | PC.NURSE ---
Pt has rested well since approx 0230, after receiving his dose of Ambien per mar. and daughter remain at bedside. Pt remains on O2 at 2LNC. Reports some soa intermittently, and cough. Pt has scattered inspiratory and expiratory wheezing noted, faint crackles noted to right base. Scattered rhonchi noted on this mornings assessment. Loose cough noted. Not producing sputum at this time. Denies CP. Remains NSR/Sinus Tach on telemetry. VSS. No acute distress noted at this time, will continue to monitor.
[2022-04-10 07:43] LABS: Basophils # 0.1 K/mm3 (0-0.2); Basophils % 0.5 % (0.1-2.0); Hematocrit 34.3 % (42.0-52.0); Lymphocytes # 0.5 K/mm3 (0.7-4.5)
[2022-04-10 07:51] LABS: Alanine Aminotransferase 30 U/L (12-78); Albumin Level 2.5 g/dl (3.5-5.0); Albumin/Globulin Ratio 0.8 (1.1-1.8); Alkaline Phosphatase 110 U/L (38-126); Anion Gap 17.6 mEq/L (5-15); Aspartate Amino Transferase 35 U/L (17-59); Bilirubin,Total 1.2 mg/dl (0.2-1.3); Blood Urea Nitrogen 51 mg/dl (9-20); Calcium 8.3 mg/dl (8.4-10.2); Carbon Dioxide 21 mmol/L (22.0-30.0); Chloride 104 mmol/L (98-107); Creatinine Clearance Estimated 61 mL/min (50-200); Estimated Glomerular Filt Rate 64 ml/min (>60); GFR (African American) 77 ML/MIN (>60); Glucose 110 mg/dl (74-100); Magnesium 2.2 mg/dl (1.6-2.3); Potassium 3.6 mmoL/L (3.5-5.1); Sodium 139 mmol/L (136-145); Total Protein,Serum 5.5 g/dl (6.3-8.2)
[2022-04-10 07:55] LABS: Eosinophils # 0.4 K/mm3 (0.0-0.4); Eosinophils % 2.9 % (0.1-12.0); Lymphocytes % 3.6 % (10-50); Mean Corpuscular HGB Conc 32.6 g/dL (31.8-35.4); Mean Corpuscular Hemoglobin 32.6 pg (27.0-31.2); Mean Corpuscular Volume 100.2 fl (80-94); Mean Platelet Volume 8.6 fl (7.4-10.4); Monocytes # 0.5 K/mm3 (0.1-1.0); Monocytes % 3.5 % (1.7-9.3); Neutrophils # 13.2 K/mm3 (1.8-7.8); Neutrophils % 89.4 % (37.0-80.0); Platelet Count 261 K/mm3 (142-424); Red Blood Count 3.42 M/mm3 (4.60-6.20); White Blood Count 14.8 K/mm3 (4.8-10.8)
[2022-04-10 07:56] LABS: Hemoglobin 11.2 g/dL (14.1-18.0)
[2022-04-10 07:57] LABS: MANUAL DIFFERENTIAL MANUAL DIFFERENTIAL (MANUAL DIFF)
[2022-04-10 08:30] LABS: Lymphocytes % 9 % (10-50); Monocytes % 3 % (2-9); Neutrophils % 88 % (42-76); Total Cells Counted 100
[2022-04-10 08:31] LABS: Hypochromasia 1+; Macrocytosis 1+; Platelet Estimate Normal
--- NOTE | 2022-04-10 10:03 | EXP.PULM.CON ---
History of Present Illness History of present illness: Mr. Mcdowell is a 87-year-old male recently seen in the hospital for pneumonia lung abscess along with peripheral eosinophilia discharged home with Augmentin presented worsening respiratory worsening respiratory's along with worsening cough and productive phlegm for the last 3 to 4 days post discharge [facility] Medical History (Updated 04/10/22 @ 12:34 by Alesha Yeager MD) Benign positional vertigo Coronary artery disease Edema of both lower extremities Eosinophilia Hilar lymphadenopathy Hyperlipidemia Hypertension Lung abscess Lung nodule Mediastinal lymphadenopathy Unresolved pneumonia Surgical History History of cholecystectomy Hx of CABG Hx of hernia repair S/P CABG x 3 Family History Family history of stroke Family history of diabetes mellitus type II Social History Smoking Status: Never smoker second hand exposure: Yes alcohol intake: never counseling provided: none substance use type: denies use current occupational status: retired Travel in the last 8 weeks: None household members: spouse housing: house current occupational exposures/hazards: No caffeine: Yes Review of Systems Constitutional Constitutional: Reports fatigue, Denies headache(s) and Reports weakness Eyes Eyes: Denies eye discharge, Denies dry eyes, Denies irritation and Denies itchy eyes ENT Ears, Nose, Mouth, and Throat: Denies headache(s), Denies lip swelling and Denies throat swelling *Cardiovascular Cardiovascular: Reports dyspnea and Reports dyspnea on exertion *Respiratory Respiratory: Reports change in phlegm color, Reports chest congestion, Reports cough, Reports dyspnea, Reports dyspnea on exertion, Reports excessive phlegm production, Denies hemoptysis, Reports pain with cough and Reports wheezing *Gastrointestinal Gastrointestinal: Denies abdominal pain, Denies belching and Denies cramping *Musculoskeletal Musculoskeletal: Denies numbness *Neurologic Neurologic: Denies headache(s), Denies numbness and Reports weakness Psychiatric Psychiatric: Denies homicidal ideation and Denies suicidal ideation Endocrine Endocrine: Reports fatigue and Denies heat intolerance Hematologic/Lymphatic Hematologic/Lymphatic: Denies easy bleeding and Denies lymphadenopathy Allergic/Immunologic Allergic/Immunologic: Denies itchy eyes, Denies lip swelling, Denies throat swelling and Reports wheezing Pulmonology Exam Inpatient Vital signs and Labs for Last 24 Hours: Temp Pulse Resp BP Pulse Ox 96.4 F L 109 H 24 101/59 L 91 L 04/10/22 08:00 04/10/22 08:00 04/10/22 08:00 04/10/22 08:00 04/10/22 08:00 Laboratory Results - last 24 hr 04/09/22 09:44: WBC 19.1 H, RBC 4.22 L, Hgb 13.3 L, Hct 41.7 L, MCV 98.8 H, MCH 31.6 H, MCHC 31.9, RDW 14.1, Plt Count 381, MPV 8.2, Neut % (Auto) 90.2 H, Lymph % (Auto) 2.9 L, Emmons % (Auto) 2.8, Eos % (Auto) 3.6, Baso % (Auto) 0.5, Neut # (Auto) 17.2 H, Lymph # (Auto) 0.5 L, Emmons # (Auto) 0.5, Eos # (Auto) 0.7 H, Baso # (Auto) 0.1, Total Counted 100, Neutrophils % (Manual) 94 H, Lymphocytes % (Manual) 1 L, Monocytes % (Manual) 5, Platelet Estimate Normal, RBC Morphology Normal 04/09/22 09:44: Sodium 139, Potassium 4.1, Chloride 102, Carbon Dioxide 23, Anion Gap 18.1 H, BUN 56 H, Creatinine 1.20, Estimated Creat Clear 55, Estimated GFR 58 L, Est GFR ( Amer) 70, Glucose 91, Calcium 8.8, Total Bilirubin 1.9 H, AST 44, ALT 37, Alkaline Phosphatase 121, Troponin I < 0.01, NT-Pro-B Natriuret Pep 1920 H, Total Protein 6.6, Albumin 3.1 L, Globulin 3.5 H, Albumin/Globulin Ratio 0.9 L 04/09/22 10:06: SARS-CoV-2 (PCR) Not detected, Influenza A Untype (PCR) Not detected, Influenza Type B (PCR) Not detected 04/09/22 10:16: Lactate 1.7 04/09/22 13:34: Troponin I < 0.01 04/09/22 15:50: Troponin I < 0.01 1
--- NOTE | 2022-04-10 11:40 | EXP.ACUTE.PN ---
Subjective *Date: 04/10/22 *Time: 18:17 Interval history: Continues to remain weak today. Increased oxygen requirement overnight to 3 L. Dry nonproductive cough. Remains afebrile. No nausea or vomiting. Poor appetite this morning. Did not sleep well last night per family's report. Denies any confusion, chest pain, diarrhea. Family at bedside, updated of plan. Medical Exam Vital signs and Labs for Last 24 Hours: Vital Signs Temp Pulse Pulse Resp BP BP Pulse Ox 04/10/22 10:22 108 H 18 04/10/22 10:15 105 H 04/10/22 10:15 108 H 04/10/22 08:00 96.4 F L 109 H 24 101/59 L 91 L 04/10/22 05:20 100 H 04/10/22 05:20 101 H 04/10/22 05:20 92 L 04/10/22 04:00 90 04/09/22 20:00 80 04/10/22 00:00 90 04/10/22 04:00 97.8 F 108 H 24 98/63 L 90 L 04/10/22 01:52 102 H 04/10/22 01:52 106 H 04/10/22 00:00 97.6 F 106 H 22 104/62 L 94 L 04/09/22 20:00 97.6 F 97 H 24 113/52 L 92 L 04/09/22 16:37 100 H 04/09/22 15:00 98.0 F 104 H 24 99/62 L 04/09/22 15:14 98.0 F 104 H 18 104/67 L 93 L 04/09/22 14:30 108 H 33 H 103/64 L 92 L 04/09/22 14:00 99 H 32 H 95/64 L 94 L 04/09/22 13:30 100 H 33 H 100/66 L 94 L 04/09/22 13:00 93 H 21 101/63 L 94 L 04/09/22 12:30 87 20 102/64 L 95 04/09/22 12:00 91 H 21 91/61 L 94 L 04/09/22 11:48 90 20 96/62 L 94 L Intake and Output 04/09/22 04/10/22 04/10/22 23:59 07:59 15:59 Intake Total 120 / 120 458 / 458 Output Total 425 / 525 350 / 350 Balance -305 / -405 108 / 108 Intake: Intake, Oral Amount 120 / 120 Intake, Total IV Amount 458 / 458 Ringers Solution,Lactated 1,000 458 / 458 ml @ 50 mls/hr IV .Q20H [facility] Rx #:[id number] Output: Output, Urine Amount 425 / 525 350 / 350 Other: Number of Unmeasured Voids 0 Weight 87.18 kg Patient Weight 04/10/22 23:59 Weight 87.18 kg Laboratory Results - last 24 hr 04/09/22 13:34: Troponin I < 0.01 04/09/22 15:50: Troponin I < 0.01 04/10/22 06:52: WBC 14.8 H, RBC 3.42 L, Hgb 11.2 L D, Hct 34.3 L, MCV 100.2 H, MCH 32.6 H, MCHC 32.6, RDW 14.0, Plt Count 261 D, MPV 8.6, Neut % (Auto) 89.4 H, Lymph % (Auto) 3.6 L, Jay % (Auto) 3.5, Eos % (Auto) 2.9, Baso % (Auto) 0.5, Neut # (Auto) 13.2 H, Lymph # (Auto) 0.5 L, Jay # (Auto) 0.5, Eos # (Auto) 0.4, Baso # (Auto) 0.1, Total Counted 100, Neutrophils % (Manual) 88 H, Lymphocytes % (Manual) 9 L, Monocytes % (Manual) 3, Platelet Estimate Normal, Hypochromasia 1+, Macrocytosis 1+ 04/10/22 06:52: Sodium 139, Potassium 3.6, Chloride 104, Carbon Dioxide 21 L, Anion Gap 17.6 H, BUN 51 H, Creatinine 1.10, Estimated Creat Clear 61, Estimated GFR 64, Est GFR ( Amer) 77, Glucose 110 H D, Calcium 8.3 L, Magnesium 2.2, Total Bilirubin 1.2, AST 35, ALT 30, Alkaline Phosphatase 110, Total Protein 5.5 L, Albumin 2.5 L D, Globulin 3.0, Albumin/Globulin Ratio 0.8 L I & O for Labs for Last 24 Hours: Intake & Output 04/07/22 04/08/22 04/09/22 04/10/22 23:59 23:59 23:59 23:59 Intake Total 120 / 120 458 / 458 Output Total 425 / 525 350 / 350 Balance -305 / -405 108 / 108 Weight 86.183 kg 87.18 kg Constitutional: Present mild distress, average body habitus and chronically ill appearing Head: Present atraumatic and normocephalic ENT: Present mucous membranes moist Respiratory: Present crackles (right lung field) and normal respiratory effort; Absent accessory muscle use, rhonchi or wheezes Cardiac: Present Tachycardia; Absent No Murmur GI: Present soft and normal bowel sounds; Absent distention or tenderness Extremities: Present normal inspection, full ROM and edema (2+ to knees) Skin: Present intact; Absent erythema Neuro: Present Grossly Intact, alert, awake, oriented x 3 and moves all extremities Assessment and Plan *Assessment and plan (1) Sepsis: Status: Acute Ca
--- NOTE | 2022-04-10 12:58 | PC.NURSE ---
late entry-notified provider of low bp, lr bolus of 500 ml ordered.
--- NOTE | 2022-04-10 15:06 | EXP.ANES.CKL ---
[facility] Medical History (Updated 04/10/22 @ 12:34 by Alesha Yeager MD) Benign positional vertigo Coronary artery disease Edema of both lower extremities Eosinophilia Hilar lymphadenopathy Hyperlipidemia Hypertension Lung abscess Lung nodule Mediastinal lymphadenopathy Unresolved pneumonia Surgical History History of cholecystectomy Hx of CABG Hx of hernia repair S/P CABG x 3 Family History Family history of stroke Family history of diabetes mellitus type II Social History Smoking Status: Never smoker second hand exposure: Yes alcohol intake: never counseling provided: none substance use type: denies use current occupational status: retired Travel in the last 8 weeks: None household members: spouse housing: house current occupational exposures/hazards: No caffeine: Yes [facility] Anesthesia Checklist Patient Identification Patient Identification: Arm Band Structural Data Admitted From: Home Planned Operative Procedure/s: Bronchoscopy Consent for Planned Operative Procedure(s) Verified: Yes Verified Documents: Surgical Consent and History and Physical NPO Status Verified Time NPO: 07:00 Additional verifications Anesthesia Reactions: No Airway Assessment C-Spine Mobility Assessed: Yes TMJ Mobility Assessed: Yes Dentition: Poor Dentition Neurological Assessment Level of Consciousness: Awake and Alert Anesthesia Plan Anesthesia Risk discussed: Yes Anesthesia Plan: Verified ASA Class: III Anesthesia Type: General
--- NOTE | 2022-04-10 16:01 | XR_ITS ---
FINAL REPORT CLINICAL HISTORY: BRONCH IN OR 57.25mgy 2.49 time FINDINGS: Fluoroscopy was performed in the operating room. A total of 1 image was obtained in 2.49 minutes of fluoroscopy time. IMPRESSION: Intraoperative fluoroscopy as above. Reviewed, Interpreted and Dictated by Compa Palencia III, MD Transcribed by Tyra Hilton Authenticated and [facility]
--- NOTE | 2022-04-10 16:06 | EXP.BRONCH.N ---
Procedure: Date: 04/10/22 Patient Date of :: 1935 Procedure Performed:: Bronchoscopy with airway examination, endobronchial biopsy and transbronchial biopsy Indications:: Non-resolving pneumonia Performing Provider:: Alesha Yeager MD Referring Provider:: Dr. Wade Sedation:: General anesthesia Procedure:: Bronchoscopy with airway examination, endobronchial biopsy and transbronchial biopsy A clean DIAGNOSTIC bronchoscopy was advanced through the ET tube and airways were examined up to subsegmental bronchi. No evidence of mucoid secretions, mucous plugging active bleeding/old blood clots noted. Black eschar like lesions were noted in the right mainstem bronchus and right lower lobe bronchus. Endobronchial biopsies were performed. Lesions are fragile easy to bleed. Endobronchial biopsies were sent in formalin for cytopathologic examination Bronchoalveolar lavage was performed in the RIGHT LOWER LOBE with instillation of 60 cc normal saline with return of 30 cc of blood tinged fluid back. BAL fluid was sent for cell count and differential along with bacterial fungal and AFB stain and cultures. Transbronchial biopsy was performed in the RIGHT LOWER LOB with a total of 7 biopsies performed, 5 biopsy specimens were sent in formalin for cytopathologic examination. The other 2 biopsy samples, were sent one each in two separate normal saline specimen cups for bacterial fungal and AFB stain cultures. Special request was also made for the pathologist to evaluate for AFB and fungal organisms on the cytopathologic examination. Special request was made to perform AFB and fungal staining's on endobronchial biopsy, transbronchial biopsy and bronchoalveolar lavage specimens. Patient tolerated the procedure with no acute complications. We will follow the patient in pulmonary clinic in 7 to 10 days. Findings:: Please see the procedure note Recommendations:: Please see the procedure note and progress note from today Complications:: No acute immediate complications Estimated blood obtained (mL): 10
--- NOTE | 2022-04-10 16:37 | P.PNANES_ITS ---
[facility] Anesthesia Record Part I Anesthesia Record I Intake, IV Amount: 400 Estimated blood loss (mL): 0 Urine output (mL): 0 Blood Products used (#): none Blood Pressure: 123/77 SaO2: 90 Pulse Rate: 124 Respiratory Rate: 28 Temperature: 97.2 F Patient is:: Drowsy and Unstable Stable to PACU at:: 16:13 Comments:: SaO2 91 at 4 L/Min
[2022-04-10 17:50] LABS: Basophils # 0.1 K/mm3 (0-0.2); Basophils % 0.4 % (0.1-2.0); Eosinophils # 0.2 K/mm3 (0.0-0.4); Eosinophils % 0.9 % (0.1-12.0); Hemoglobin 11.1 g/dL (14.1-18.0); Lymphocytes # 0.4 K/mm3 (0.7-4.5); Lymphocytes % 2.5 % (10-50); Mean Corpuscular HGB Conc 31.9 g/dL (31.8-35.4); Mean Corpuscular Hemoglobin 32.3 pg (27.0-31.2); Mean Corpuscular Volume 101.2 fl (80-94); Mean Platelet Volume 8.3 fl (7.4-10.4); Monocytes # 0.6 K/mm3 (0.1-1.0); Monocytes % 3.8 % (1.7-9.3); Neutrophils # 15.3 K/mm3 (1.8-7.8); Neutrophils % 92.5 % (37.0-80.0); Platelet Count 323 K/mm3 (142-424); Red Blood Count 3.45 M/mm3 (4.60-6.20); Red Cell Distribution Width 14.3 % (11.5-17.5); White Blood Count 16.5 K/mm3 (4.8-10.8)
[2022-04-10 17:52] LABS: MANUAL DIFFERENTIAL MANUAL DIFFERENTIAL (MANUAL DIFF)
[2022-04-10 17:56] LABS: Alanine Aminotransferase 30 U/L (12-78); Albumin Level 2.6 g/dl (3.5-5.0); Albumin/Globulin Ratio 0.9 (1.1-1.8); Alkaline Phosphatase 105 U/L (38-126); Aspartate Amino Transferase 35 U/L (17-59); Blood Urea Nitrogen 52 mg/dl (9-20); Calcium 8.1 mg/dl (8.4-10.2); Carbon Dioxide 21 mmol/L (22.0-30.0); Chloride 104 mmol/L (98-107); Creatinine Clearance Estimated 55 mL/min (50-200); Estimated Glomerular Filt Rate 58 ml/min (>60); GFR (African American) 70 ML/MIN (>60); Globulin 2.9 g/dL (1.3-3.2); Glucose 127 mg/dl (74-100); Sodium 137 mmol/L (136-145); Total Protein,Serum 5.5 g/dl (6.3-8.2)
--- NOTE | 2022-04-10 18:05 | PC.NURSE ---
1650-spoke with dr camejo at this time- notified pt having expiratory wheezing, on o2 @ 3l/nc and sats maintaining 90-92%, Md ordered for patient to have Duoneb breathing treatment prior to returning back to 2nd floor, pt's sats need to maintain between 89-91%, will continue to monitor . 1655-respiratory at bedside administering breathing treatment 165-detailed report called to DaniaRN 1701-pt transported to 2nd floor via hospital bed, vss, pt stable upon discharge from PACU
--- NOTE | 2022-04-10 18:24 | PC.NURSE ---
AOX4, CURRENTLY ON 4LNC WITH O2 SATS >90%. HAS NOT C/O PAIN SINCE RETURNING FROM PROCEDURE. BRONCHSCOPY PERFORMED IN OR. +2 BITTING EDEMA NOTED TO BLE. BP HAS BEEN SOFT SINCE ARRIVING TO FLOOR. MD WAS MADE AWARE AND LR BOLUS CURRENTLY INFUSING PER V/O. TACHYCARDIA NOTED ON TELEMETRY WITH HR IN 110'S. LOOSE COUGH NOTED, SOME INSPIRATORY AND EXPIRATORY WHEEZING NOTED ON AUSCULTATION.
[2022-04-10 18:52] LABS: Anion Gap 16.1 mEq/L (5-15); Potassium 4.1 mmoL/L (3.5-5.1)
[2022-04-10 19:33] LABS: Lymphocytes % 4 % (10-50); Macrocytosis 1+; Monocytes % 6 % (2-9); Neutrophils % 90 % (42-76); Platelet Estimate Normal; Total Cells Counted 100
--- NOTE | 2022-04-10 20:08 | PC.NURSE ---
kathy campo tool and die supervisor wanted to be called if b/p continues to be low, b/p 78/50, 81/49, sbp have been in the 80's as charted, note new orders entered per kathy tool and die supervisor to transfer to stepdown and start levo drip
--- NOTE | 2022-04-10 20:33 | PC.NURSE ---
pt transferred to 219 via bed acompanied by family with personal belongings in satisfactory condition, no acute distress noted, report given to ashish hays RN.
[2022-04-11] VITALS (14 sets, daily range): BP systolic 91–114; BP diastolic 53–71; PULSE 90–120; RESP 16–20; TEMP 36.4–37.2; O2SAT 93–97; BMI 29.5
--- NOTE | 2022-04-11 | PC.NURSE ---
[email or web address] contacted Lisa thompson
--- NOTE | 2022-04-11 01:48 | PC.NURSE ---
pt moved to stepdown in anticipation of starting levo gtt, since arriving to stepdown room pt has sustained a SBP > 90 and a MAP >65, has remained tachy with HR 106-116, no complaints of pain or SOA, remains on 2L NC with O2 sats 94-96%, family remains at bedside
--- NOTE | 2022-04-11 05:00 | PC.NURSE ---
Took over the care of him at 0100. He has slept intermittently and wakes up and speaks to his family that is in the room. He has not been started on the phenylephrine. Per report, goal of SBP>90. He has had a couple blood pressures lower than SBP 90 while sleeping but on rechecks his SBP is greater than 90. Plan to start if he is consistently below 90. When he is awake his BP is in upper 90s-lower 100s. His speech is clear. NSR-sinus tach on telemetry.
[2022-04-11 06:57] LABS: Basophils % 0.2 % (0.1-2.0); Eosinophils % 0.1 % (0.1-12.0); Hematocrit 31.9 % (42.0-52.0); Hemoglobin 10.4 g/dL (14.1-18.0); Lymphocytes # 0.4 K/mm3 (0.7-4.5); Lymphocytes % 2.4 % (10-50); Mean Corpuscular HGB Conc 32.5 g/dL (31.8-35.4); Mean Corpuscular Hemoglobin 32.1 pg (27.0-31.2); Mean Corpuscular Volume 98.7 fl (80-94); Mean Platelet Volume 8.4 fl (7.4-10.4); Monocytes # 0.5 K/mm3 (0.1-1.0); Monocytes % 3.2 % (1.7-9.3); Neutrophils # 14.2 K/mm3 (1.8-7.8); Neutrophils % 94.1 % (37.0-80.0); Platelet Count 311 K/mm3 (142-424); Red Blood Count 3.24 M/mm3 (4.60-6.20); Red Cell Distribution Width 14.1 % (11.5-17.5); White Blood Count 15.1 K/mm3 (4.8-10.8)
[2022-04-11 06:58] LABS: MANUAL DIFFERENTIAL MANUAL DIFFERENTIAL (MANUAL DIFF)
[2022-04-11 07:05] LABS: Alanine Aminotransferase 24 U/L (12-78); Albumin Level 2.4 g/dl (3.5-5.0); Albumin/Globulin Ratio 0.8 (1.1-1.8); Alkaline Phosphatase 97 U/L (38-126); Anion Gap 14.7 mEq/L (5-15); Aspartate Amino Transferase 27 U/L (17-59); Bilirubin,Total 0.7 mg/dl (0.2-1.3); Blood Urea Nitrogen 51 mg/dl (9-20); Calcium 8.2 mg/dl (8.4-10.2); Carbon Dioxide 22 mmol/L (22.0-30.0); Chloride 106 mmol/L (98-107); Creatinine Clearance Estimated 58 mL/min (50-200); Estimated Glomerular Filt Rate 58 ml/min (>60); GFR (African American) 70 ML/MIN (>60); Globulin 2.9 g/dL (1.3-3.2); Glucose 131 mg/dl (74-100); Potassium 4.7 mmoL/L (3.5-5.1); Sodium 138 mmol/L (136-145); Total Protein,Serum 5.3 g/dl (6.3-8.2)
--- NOTE | 2022-04-11 07:15 | ECG_ITS ---
APPROVED REPORT Exam: Resting ECG HR:117 bpm ECG Measurements Heart Rate 117 AXES PA 243 P 66 QRSd 154 QRS -17 QT 368 T 35 QTc 438 Conclusion SINUS TACHYCARDIA WITH FIRST DEGREE AV BLOCK RIGHT BUNDLE BRANCH BLOCK [120+ ms QRS DURATION, UPRIGHT V1, 40+ ms S IN I/aVL/V4/V5/V6] ABNORMAL ECG UNCONFIRMED REPORT Electronically signed by : Jaime Lau MD 04/12/2022 08:53:53
[2022-04-11 07:40] LABS: Lymphocytes % 3 % (10-50); Monocytes % 1 % (2-9); Neutrophils % 96 % (42-76); Platelet Estimate Normal; RBC Morphology Normal; Total Cells Counted 100
--- NOTE | 2022-04-11 07:48 | XR_ITS ---
PROCEDURE INFORMATION: Exam: XR Chest Exam date and time: 04/11/2022 8:06 AM Age: 87 years old Clinical indication: Shortness of breath; Additional info: Assess lung volumes, progression of rll pna TECHNIQUE: Imaging protocol: Radiologic exam of the chest. Views: 2 views. COMPARISON: SD XR CHEST AP 04/10/2022 4:01 PM FINDINGS: Lungs: Similar airspace opacities throughout the right lung and in the left lung base. Pleural spaces: No substantial pleural effusion. No pneumothorax. Heart/Mediastinum: Changes of prior CABG. Bones/joints: Unremarkable. IMPRESSION: Similar appearance of multilobar pneumonia.
--- NOTE | 2022-04-11 11:55 | HMH.PTEV ---
Physical Therapy Evaluation Rehab PT IP Evaluation Start: 04/10/22 19:20 Freq: ONCE Status: Active Protocol: Document 04/11/22 11:39 JOEEULALIA (Rec: 04/11/22 11:55 AATERIN [id number]) Subjective/History History History Pt is an 87 y/o male that was admitted to [facility] on 04/09/22 for worsening pneumonia and hypoxemic respiratory failure and was found to have sepsis. Per note, imaging showed worsening right lower lobe pneumonia, elevated BNP, worsening leukocytosis (19 K). Pt was recently admitted last weekend due low blood pressure, weakness and oxygen requirement with continued SOA and cough. Subjective Subjective Pt reports he lives at home with his . Pt reports prior to hospitalization, he was independent with ADLs and not using an AD until last week. Pt reports last week he started using a walker for ambulation and oxygen. Pt reports he has 5 steps to get inside his home and 1 flight of stairs to his bedroom but is currently staying on the first level den. Rehab PT IP Eval Objective Appearance Patient Behavior Appropriate,Cooperative Patient Orientation Person,Place,Birthday,Year Difficulty following instructions none Speech Pattern Clear,Appropriate Ambulation Patient Able to Ambulate Yes Ambulation Observation IP General Gait Pattern Observation Wide Based Gait,Shuffling Step Ambulation Distance (feet) 3 Ambulation Assistive Device None Ambulation Ability Contact Guard/Hand Hold Balance Ability to Arise Able, uses arms to help Sitting Balance Steady, safe Standing Balance Steady, wide stance Dynamic Sitting Balance Ability Fair Dynamic Standing Balance Ability Fair Transfers Bed Transfer Ability Supervision/Stand by Chair Transfer Ability Contact Guard/Hand Hold Sit to Stand Bed Transfer Ability Contact Guard/Hand Hold Sit to Stand Chair Transfer Ability Contact Guard/Hand Hold ROM All Extremities PT ROM Status WFL MMT All Extremities PT MMT WFL
--- NOTE | 2022-04-11 13:29 | EXP.ACUTE.PN ---
Subjective *Date: 04/11/22 *Time: 13:29 Interval history: Complaining of some weakness this morning. Denies chest pain, nausea, emesis. Has done better eating over the past 24 hours. Family reports he slept much better last night. Blood pressure stable on assessment this morning. Reviewed labs this morning. Cough remains dry nonproductive. On 4 L nasal cannula oxygen this morning. Alert and oriented x3. Daughter and at bedside, updated on plan Medical Exam Vital signs and Labs for Last 24 Hours: Vital Signs Temp Pulse Pulse Pulse Resp BP BP 04/11/22 09:59 104 H 04/11/22 09:59 105 H 04/11/22 09:59 04/11/22 08:00 118 H 04/11/22 08:00 98.6 F 04/11/22 06:42 94 H 04/11/22 06:42 94 H 04/11/22 06:42 04/11/22 06:00 102 H 17 105/69 L 04/11/22 04:00 98.1 F 04/11/22 04:00 90 04/11/22 04:00 98.1 F 96 H 16 98/53 L 04/11/22 02:17 107 H 04/11/22 02:00 97 H 17 91/57 L 04/11/22 00:00 105 H 04/11/22 00:00 98.9 F 116 H 20 114/71 04/10/22 21:00 106 H 04/10/22 23:25 107 H 20 96/66 L 04/10/22 22:25 111 H 20 93/67 L 04/10/22 21:25 110 H 22 95/63 L 04/10/22 20:25 112 H 22 92/42 L 04/10/22 20:00 110 H 04/10/22 19:40 111 H 24 85/52 L 04/10/22 20:17 114 H 26 H 86/63 L 04/10/22 20:10 109 H 24 81/49 L 04/10/22 19:55 108 H 26 H 78/50 L 04/10/22 19:35 112 H 26 H 86/49 L 04/10/22 19:24 112 H 24 84/54 L 04/10/22 19:05 111 H 24 95/51 L 04/10/22 18:35 97.7 F 113 H 26 H 92/56 L 04/10/22 19:15 111 H 04/10/22 19:15 104 H 04/10/22 19:15 04/10/22 18:05 98 F 112 H 26 H 90/52 L 04/10/22 17:50 97.6 F 116 H 26 H 85/51 L 04/10/22 17:35 97.8 F 115 H 24 81/52 L 04/10/22 17:20 97.6 F 112 H 24 86/54 L 04/10/22 17:04 106 H 04/10/22 17:04 111 H 04/10/22 17:02 97.5 F L 104 H 22 103/60 L 04/10/22 16:53 108 H 22 108/63 L 04/10/22 16:43 111 H 22 105/65 L 04/10/22 16:33 117 H 24 113/69 04/10/22 16:23 116 H 22 124/67 04/10/22 16:13 97.2 F L 124 H 28 H 123/77 04/10/22 16:40 97.2 F L 124 H 28 H 123/77 Pulse Ox 04/11/22 09:59 04/11/22 09:59 04/11/22 09:59 95 04/11/22 08:00 93 L 04/11/22 08:00 04/11/22 06:42 04/11/22 06:42 04/11/22 06:42 96 04/11/22 06:00 93 L 04/11/22 04:00 04/11/22 04:00 04/11/22 04:00 96 04/11/22 02:17 95 04/11/22 02:00 97 04/11/22 00:00 04/11/22 00:00 95 04/10/22 21:00 94 L 04/10/22 23:25 96 04/10/22 22:25 94 L 04/10/22 21:25 94 L 04/10/22 20:25 94 L 04/10/22 20:00 04/10/22 19:40 94 L 04/10/22 20:17 94 L 04/10/22 20:10 95 04/10/22 19:55 94 L 04/10/22 19:35 94 L 04/10/22 19:24 97 04/10/22 19:05 97 04/10/22 18:35 90 L 04/10/22 19:15 04/10/22 19:15 04/10/22 19:15 94 L 04/10/22 18:05 90 L 04/10/22 17:50 90 L 04/10/22 17:35 91 L 04/10/22 17:20 90 L 04/10/22 17:04 04/10/22 17:04 04/10/22 17:02 91 L 04/10/22 16:53 92 L 04/10/22 16:43 92 L 04/10/22 16:33 91 L 04/10/22 16:23 88 L 04/10/22 16:13 90 L 04/10/22 16:40 Intake and Output 04/10/22 04/11/22 04/11/22 23:59 07:59 15:59 Intake Total 1350 / 2288 1873 / 2113 240 / 2113 Output Total 100 / 450 300 / 300 Balance 1250 / 1838 1573 / 1813 240 / 1813 Intake: Intake, Oral Amount 240 / 720 240 / 240 Intake, Total IV Amount 400 / 858 1873 / 1873 Cefepime HCl 1 gm In 0.9 % 50 / 50 Sodium Chloride 50 ml @ 100 mls /hr IV Q12H [facility] Rx#:[id number] Ringers Solution,Lactated 1,000 1523 / 1523 ml @ 100 mls/hr IV .Q10H [facility] Rx#:[id number] Vancomycin/Water For Inj (Peg) 300 / 300 1.5 gm In 300 ml @ 150 mls/hr IV Q24H [facility] Rx#:[id number] Infusion Intake 710 / 710 [place]
--- NOTE | 2022-04-11 22:26 | PC.NURSE ---
He is A&Ox4. He denies pain. Was sitting up in the chair at the beginning of the shift. During bath given by SRNA it was noted that he has a stage 2 on his left buttock. He continues on 4LPM n/c. He states his last BM was 2 days ago. 2+ pitting edema to BLE. He reports a non-productive cough; therefore, continue to need sputum. Turning and repositioning him q 2 hours.
--- NOTE | 2022-04-11 23:51 | PC.WOUNDNOTE ---
Stage 2 to left buttock. No drainage or odor.
[2022-04-12] VITALS (10 sets, daily range): BP systolic 100–126; BP diastolic 57–80; PULSE 80–113; RESP 16–20; TEMP 36.4–37; O2SAT 88–93; BMI 29.7
--- NOTE | 2022-04-12 07:22 | EXP.ACUTE.PN ---
Subjective *Date: 04/12/22 *Time: 09:18 Interval history: Patient reports not feeling rested this morning, but did sleep some last night. Shortness of breath is stable. Denies any nausea or vomiting. Had a small bowel movement today. Denies chest pain, confusion. Cough sounds more wet but is still nonproductive. Doing his best to eat, eating proximately half his trays. Family at bedside and updated of plan. Stable on 4 L nasal cannula oxygen. Afebrile and hemodynamically stable overnight. Medical Exam Vital signs and Labs for Last 24 Hours: Vital Signs Temp Pulse Pulse Resp BP Pulse Ox FiO2 04/12/22 06:19 109 H 04/12/22 06:19 108 H 04/12/22 06:19 91 L 04/12/22 04:00 97.7 F 102 H 16 120/77 92 L 04/12/22 04:00 110 H 04/12/22 00:00 100 H 04/12/22 00:00 98.2 F 113 H 18 119/78 90 L 04/11/22 20:00 108 H 93 L 04/11/22 20:00 100 H 04/11/22 20:00 97.5 F L 117 H 18 97/62 L 93 L 04/11/22 21:03 36 04/11/22 21:03 101 H 04/11/22 21:02 101 H 04/11/22 16:00 120 H 04/11/22 16:00 98.3 F 109 H 16 93/58 L 93 L 04/11/22 12:00 98.1 F 04/11/22 12:00 118 H 04/11/22 13:59 104 H 04/11/22 13:59 102 H 04/11/22 13:59 96 04/11/22 09:59 104 H 04/11/22 09:59 105 H 04/11/22 09:59 95 Intake and Output 04/11/22 04/11/22 04/12/22 15:59 23:59 06:59 Intake Total 480 / 2893 480 / 2893 410 / 410 Output Total 100 / 475 375 / 375 Balance 480 / 2418 380 / 2418 35 / 35 Intake: Intake, Oral Amount 480 / 960 480 / 960 Intake, Other Amount 10 / 10 Intake, Total IV Amount 400 / 400 Cefepime HCl 1 gm In 0.9 % 100 / 100 Sodium Chloride 50 ml @ 100 mls /hr IV Q12H [facility] Rx#:[id number] Vancomycin/Water For Inj (Peg) 300 / 300 1.5 gm In 300 ml @ 150 mls/hr IV Q24H [facility] Rx#:[id number] Output: Output, Urine Amount 100 / 475 375 / 375 Other: Number of Voids 1 Number of Unmeasured Voids 0 0 Weight 91.285 kg Patient Weight 04/12/22 22:59 Weight 91.285 kg I & O for Labs for Last 24 Hours: Intake & Output 04/09/22 04/10/22 04/11/22 04/12/22 23:59 23:59 23:59 22:59 Intake Total 120 / 120 2288 / 2288 2833 / 2893 410 / 410 Output Total 425 / 525 450 / 450 400 / 475 375 / 375 Balance -305 / -405 1838 / 1838 2433 / 2418 35 / 35 Weight 86.183 kg 87.18 kg 90.628 kg 91.285 kg Microbiology Reports for the Last 24 Hours: Microbiology 04/10/22 15:30 Transbronchial Biopsy - Right Lower Lobe Gram Stain - Final 04/10/22 15:30 Transbronchial Biopsy - Right Lower Lobe Surgical Biopsy Culture - Preliminary NO GROWTH AFTER 24 HOURS 04/09/22 10:19 Blood Blood Culture - Preliminary NO GROWTH AFTER 48 HOURS 04/09/22 10:19 Blood Blood Culture - Preliminary NO GROWTH AFTER 48 HOURS Constitutional: Present no acute distress, average body habitus and chronically ill appearing Head: Present atraumatic and normocephalic ENT: Present mucous membranes moist Comment:: Poor dentition Respiratory: Present wheezes, crackles (right lung field, stable, minimal wheeze/squeak with insp/exp) and normal respiratory effort; Absent accessory muscle use or rhonchi Cardiac: Present Tachycardia; Absent No Murmur GI: Present soft and normal bowel sounds; Absent distention or tenderness Extremities: Present normal inspection, full ROM and edema (2+ to knees stable) Skin: Present intact; Absent erythema Neuro: Present Grossly Intact, alert, awake, oriented x 3 and moves all extremities Assessment and Plan *Assessment and plan (1) HCAP (healthcare-associated pneumonia): Status: Acute Category: Medical Code(s): J18.9 - Pneumonia, unspecified organism (2) Acute respiratory failure with hypoxia: Status: Acute Ca
[2022-04-12 07:24] LABS: Anion Gap 15.3 mEq/L (5-15); Blood Urea Nitrogen 49 mg/dl (9-20); Calcium 8.8 mg/dl (8.4-10.2); Carbon Dioxide 22 mmol/L (22.0-30.0); Chloride 106 mmol/L (98-107); Creatinine Clearance Estimated 58 mL/min (50-200); Estimated Glomerular Filt Rate 58 ml/min (>60); GFR (African American) 70 ML/MIN (>60); Glucose 118 mg/dl (74-100); Potassium 4.3 mmoL/L (3.5-5.1); Sodium 139 mmol/L (136-145)
[2022-04-12 07:27] LABS: Basophils % 0.1 % (0.1-2.0); Eosinophils % 0.2 % (0.1-12.0); Hematocrit 36.5 % (42.0-52.0); Hemoglobin 11.3 g/dL (14.1-18.0); Lymphocytes # 0.6 K/mm3 (0.7-4.5); Lymphocytes % 2.9 % (10-50); Mean Corpuscular HGB Conc 31.1 g/dL (31.8-35.4); Mean Corpuscular Hemoglobin 30.7 pg (27.0-31.2); Mean Corpuscular Volume 98.8 fl (80-94); Mean Platelet Volume 8.2 fl (7.4-10.4); Monocytes # 0.7 K/mm3 (0.1-1.0); Monocytes % 3.4 % (1.7-9.3); Neutrophils # 19.3 K/mm3 (1.8-7.8); Neutrophils % 93.4 % (37.0-80.0); Platelet Count 423 K/mm3 (142-424); Red Blood Count 3.69 M/mm3 (4.60-6.20); Red Cell Distribution Width 14.2 % (11.5-17.5); White Blood Count 20.7 K/mm3 (4.8-10.8)
[2022-04-12 07:32] LABS: MANUAL DIFFERENTIAL MANUAL DIFFERENTIAL (MANUAL DIFF)
[2022-04-12 07:49] LABS: Eosinophils % 1 % (0-3); Lymphocytes % 2 % (10-50); Monocytes % 2 % (2-9); Neutrophils % 95 % (42-76); Platelet Estimate Slight Increase; RBC Morphology Normal; Total Cells Counted 100
--- NOTE | 2022-04-12 11:26 | EXP.PHA.PN ---
Subjective *Date: 04/12/22 *Time: 11:26 Medical Exam Vital signs and Labs for Last 24 Hours: Vital Signs Temp Pulse Pulse Resp BP Pulse Ox FiO2 04/12/22 09:47 102 H 04/12/22 09:47 84 04/12/22 09:47 93 L 04/12/22 06:19 109 H 04/12/22 06:19 108 H 04/12/22 06:19 91 L 04/12/22 04:00 97.7 F 102 H 16 120/77 92 L 04/12/22 04:00 110 H 04/12/22 00:00 100 H 04/12/22 00:00 98.2 F 113 H 18 119/78 90 L 04/11/22 20:00 108 H 93 L 04/11/22 20:00 100 H 04/11/22 20:00 97.5 F L 117 H 18 97/62 L 93 L 04/11/22 21:03 36 04/11/22 21:03 101 H 04/11/22 21:02 101 H 04/11/22 16:00 120 H 04/11/22 16:00 98.3 F 109 H 16 93/58 L 93 L 04/11/22 13:59 104 H 04/11/22 13:59 102 H 04/11/22 13:59 96 Intake and Output 04/12/22 04/12/22 04/12/22 00:59 07:59 15:59 Intake Total Output Total Balance Intake: Intake, Oral Amount Intake, Other Amount Intake, Total IV Amount Cefepime HCl 1 gm In 0.9 % Sodium Chloride 50 ml @ 100 mls /hr IV Q12H [facility] Rx#:[id number] Vancomycin/Water For Inj (Peg) 1.5 gm In 300 ml @ 150 mls/hr IV Q24H [facility] Rx#:[id number] Output: Output, Urine Amount Other: Number of Voids Number of Unmeasured Voids Weight Patient Weight 04/12/22 22:59 Weight 91.285 kg Laboratory Results - last 24 hr 04/12/22 06:30: WBC 20.7 H* D, RBC 3.69 L, Hgb 11.3 L, Hct 36.5 L, MCV 98.8 H, MCH 30.7, MCHC 31.1 L, RDW 14.2, Plt Count 423 D, MPV 8.2, Neut % (Auto) 93.4 H, Lymph % (Auto) 2.9 L, [place] % (Auto) 3.4, Eos % (Auto) 0.2, Baso % (Auto) 0.1, Neut # (Auto) 19.3 H, Lymph # (Auto) 0.6 L, [place] # (Auto) 0.7, Eos # (Auto) 0.0, Baso # (Auto) 0.0, Total Counted 100, Neutrophils % (Manual) 95 H, Lymphocytes % (Manual) 2 L, Monocytes % (Manual) 2, Eosinophils % (Manual) 1, Platelet Estimate Slight increase, RBC Morphology Normal 04/12/22 06:30: Sodium 139, Potassium 4.3, Chloride 106, Carbon Dioxide 22, Anion Gap 15.3 H, BUN 49 H, Creatinine 1.20, Estimated Creat Clear 58, Estimated GFR 58 L, Est GFR ( Amer) 70, Glucose 118 H, Calcium 8.8 I & O for Labs for Last 24 Hours: Intake & Output 04/09/22 04/10/22 04/11/22 04/12/22 23:59 23:59 23:59 22:59 Intake Total 120 / 120 2288 / 2288 2833 / 2893 410 / 410 Output Total 425 / 525 450 / 450 400 / 475 375 / 375 Balance -305 / -405 1838 / 1838 2433 / 2418 35 / 35 Weight 86.183 kg 87.18 kg 90.628 kg 91.285 kg Microbiology Reports for the Last 24 Hours: Microbiology 04/10/22 15:30 Transbronchial Biopsy - Right Lower Lobe Gram Stain - Final 04/10/22 15:30 Transbronchial Biopsy - Right Lower Lobe Surgical Biopsy Culture - Preliminary NO GROWTH AFTER 24 HOURS 04/09/22 10:19 Blood Blood Culture - Preliminary NO GROWTH AFTER 48 HOURS 04/09/22 10:19 Blood Blood Culture - Preliminary NO GROWTH AFTER 48 HOURS The patient's infection will respond to the chosen ABx?: Yes (BRONCHIAL LAVAGE/BIOPSY PENDING) Is the patient receiving the right drug, dose, and route?: Yes Could a more targeted ABx be ordered?: No
--- NOTE | 2022-04-12 15:57 | XR_ITS ---
PROCEDURE INFORMATION: Exam: XR Chest Exam date and time: 04/12/2022 4:36 PM Age: 87 years old Clinical indication: Shortness of breath TECHNIQUE: Imaging protocol: Radiologic exam of the chest. Views: 1 view. COMPARISON: CR XR CHEST 2V 04/11/2022 8:06 AM FINDINGS: Lungs: Minimal improvement in right perihilar left basilar consolidations. May be infection as well as superimposed edema. Pleural spaces: Suspect small right pleural effusion. Heart/Mediastinum: Unchanged mild enlargement of the heart. Bones/joints: Unremarkable. IMPRESSION: 1. Minimal improvement in right perihilar and left basilar consolidations. This may be infection as well as superimposed edema. 2. Suspect small right pleural effusion.
--- NOTE | 2022-04-12 16:06 | ECG_ITS ---
APPROVED REPORT Exam: Resting ECG HR:102 bpm ECG Measurements Heart Rate 102 AXES QRSd 156 QRS -5 QT 369 T 27 QTc 427 Conclusion ATRIAL FIBRILLATION WITH RAPID VENTRICULAR RESPONSE WITH ABERRANT CONDUCTION OR VENTRICULAR PREMATURE COMPLEXES RIGHT BUNDLE BRANCH BLOCK [120+ ms QRS DURATION, UPRIGHT V1, 40+ ms S IN I/aVL/V4/V5/V6] ST DEVIATION AND MODERATE T-WAVE ABNORMALITY, CONSIDER ANTERIOR ISCHEMIA [-0.1+ mV T-WAVE IN V3/V4] ABNORMAL ECG UNCONFIRMED REPORT Electronically signed by : Jaime Lau MD 04/13/2022 21:40:44
[2022-04-12 17:39] LABS: Adenovirus,PCR Not Detected (NotDetected); Bordetella Pertussis Not Detected (NotDetected); Chlamydophila Pneumoniae, PCR Not Detected (NotDetected); Coronavirus 229E Not Detected (NotDetected); Coronavirus NL63 Not Detected (NotDetected); Coronavirus OC43 Not Detected (NotDetected); Coronovirus HKU1,PCR Not Detected (NotDetected); Human Metapneumovirus Not Detected (NotDetected); Influenza A, PCR Not Detected (NotDetected); Influenza AH1, 2009 Not Detected (NotDetected); Influenza AH1, PCR Not Detected (NotDetected); Influenza AH3,PCR Not Detected (NotDetected); Influenza B, PCR Not Detected (NotDetected); Mycoplasma Pneumoniae, PCR Not Detected (NotDetected); Parainfluenza 1, PCR Not Detected (NotDetected); Parainfluenza 2, PCR Not Detected (NotDetected); Parainfluenza 3, PCR Not Detected (NotDetected); Parainfluenza 4, PCR Not Detected (NotDetected); Respiratory Syncytial Virus Not Detected (NotDetected); Rhinovirus/Enterovirus Not Detected (NotDetected)
--- NOTE | 2022-04-12 18:27 | PC.NURSE ---
VS stable and patient stated he felt the same this morning, no better and not worse. Crackles noted on right side of lungs while left side diminished. Patient began to feel sob around 1535. Respiratory called and asked to administer breathing treatments that pt previously refused. Pt refused treatments because he said he doesn't feel good after the smoke from the breathing treatments. Dr. Wade called at 1539 and duo-nebulizer treatment ordered. EKG obtained and blood pressure 109/68. EKG read afib with rvr but Dr. Wade stated it looks unchanged from previous ekg and is sinus arrythmia with pac/s, tachy, 1st degree block and right bundle branch block. Patient able to calm down, tylenol given. chest x-ray ordered as well as respiratory panel. Patient moved to bed and resting. Lung sounds still crackles on right side and diminished on left
--- NOTE | 2022-04-12 18:28 | PC.NURSE ---
pt refused dinner tray because he states he did not feel well.
[2022-04-12 19:43] LABS: Coronavirus 19, PCR Detected (NotDetected)
--- NOTE | 2022-04-12 19:47 | PC.NURSE ---
Received call from lab to the CHARGE phone to notify that pt Full Resp PCR is + for COVID19. Notified Hospitalist, Kennedy at this time. Notified primary RN and patient placed in Isolation. Primary RN to speak to patient and family.
[2022-04-12 20:12] LABS: Lactate Dehydrogenase 170 U/L (313-618)
[2022-04-12 20:48] LABS: Ferritin 397 ng/ml (17.9-464)
[2022-04-12 22:01] LABS: Vancomycin,Trough 14.9 ug/mL (5.0-10.0)
--- NOTE | 2022-04-12 23:39 | HMH.PHAINT ---
vancomycin trough was called to pharmacy to verify dosing, current dosing was not changed for level 14.9
[2022-04-13] VITALS (14 sets, daily range): BP systolic 93–124; BP diastolic 60–80; PULSE 84–119; RESP 18–24; TEMP 36.4–36.9; O2SAT 91–97; BMI 29.7
[2022-04-13 01:34] LABS: Vancomycin,Peak 39.7 ug/ml (11-39)
--- NOTE | 2022-04-13 01:50 | PC.NURSE ---
condom catheter applied per request from family and pt due to soa and frequent urination.
--- NOTE | 2022-04-13 03:52 | PC.NURSE ---
pt given tylenol for generalized feeling like he is breathing heavy, 02 sats are 93% on 4L, hr 97 irregular, lungs clear and diminished, no acute distress noted. family at bedside.
--- NOTE | 2022-04-13 04:46 | PC.NURSE ---
pt resltess and complains of soa and feeling like he is breathing heavy at times, 2+ pitting edema to BLE, daughter is a nurse and remained at bedse with pts through the night, condom catheter in place for comfort, 02 sats 94% on 02 at 4L, lung sounds with fine crackles and diminished, pt with rattling cough but unable to produce sputum, skin pwd with redness noted to buttocks, pt daughter is turning pt side to side, telemetry with sinus arrythmia, pvc's and pac's noted, hr 90's to 100's , b/p stable, no acute distress, pt is alert and oriented x4
[2022-04-13 05:49] LABS: Basophils % 0.1 % (0.1-2.0); Eosinophils # 0.1 K/mm3 (0.0-0.4); Eosinophils % 0.5 % (0.1-12.0); Hematocrit 32.8 % (42.0-52.0); Hemoglobin 10.9 g/dL (14.1-18.0); Lymphocytes # 0.3 K/mm3 (0.7-4.5); Lymphocytes % 2.6 % (10-50); Mean Corpuscular HGB Conc 33.2 g/dL (31.8-35.4); Mean Corpuscular Hemoglobin 31.7 pg (27.0-31.2); Mean Corpuscular Volume 95.5 fl (80-94); Mean Platelet Volume 8.1 fl (7.4-10.4); Monocytes # 0.4 K/mm3 (0.1-1.0); Neutrophils # 12.1 K/mm3 (1.8-7.8); Neutrophils % 93.8 % (37.0-80.0); Platelet Count 336 K/mm3 (142-424); Red Blood Count 3.43 M/mm3 (4.60-6.20); Red Cell Distribution Width 13.9 % (11.5-17.5); White Blood Count 12.9 K/mm3 (4.8-10.8)
[2022-04-13 05:50] LABS: MANUAL DIFFERENTIAL MANUAL DIFFERENTIAL (MANUAL DIFF)
[2022-04-13 05:58] LABS: Lymphocytes % 1 % (10-50); Neutrophils % 92 % (42-76); Total Cells Counted 100
[2022-04-13 05:59] LABS: Hypersegmented Neutrophils 1+; Platelet Estimate Normal; RBC Morphology Normal
[2022-04-13 06:00] LABS: Anion Gap 14.9 mEq/L (5-15); Blood Urea Nitrogen 40 mg/dl (9-20); Calcium 8.4 mg/dl (8.4-10.2); Carbon Dioxide 22 mmol/L (22.0-30.0); Chloride 107 mmol/L (98-107); Creatinine Clearance Estimated 70 mL/min (50-200); Estimated Glomerular Filt Rate 71 ml/min (>60); GFR (African American) 86 ML/MIN (>60); Lactate Dehydrogenase 124 U/L (313-618); Magnesium 2.2 mg/dl (1.6-2.3); Potassium 4.9 mmoL/L (3.5-5.1); Sodium 139 mmol/L (136-145)
[2022-04-13 06:01] LABS: Glucose 148 mg/dl (74-100)
[2022-04-13 06:05] LABS: D-Dimer 1.06 ug/mL (0.0-0.5)
[2022-04-13 06:35] LABS: Ferritin 312 ng/ml (17.9-464)
--- NOTE | 2022-04-13 07:56 | EXP.CARD.CON ---
History of Present Illness History of Present Illness Consult date: 04/13/22 Requesting physician: Sven Wade Consult reason: atrial fibrillation Chief complaint: SOA, COVID pneumonia Additional Medical History:: 1. Coronary artery disease A. Coronary bypass grafting x3, 1999 2. Ex-smoker, discontinued 1997, cigars only 3. Hypertension 4. Hyperlipidemia 5. COVID positive with multilobar pneumonia, 04/2022 A. Possible paroxysmal atrial fibrillation 6. Chronic abnormal EKG with right bundle block and first-degree AV block without syncope History of present illness: 87-year-old white male admitted for worsening respiratory failure despite supplemental oxygen on 04/09/2022. I did see him in the office and sent him to the ER for evaluation. He was subsequently admitted for worsening pneumonia. During admission the patient's medications have been held due to hypotension and IV fluids have been given with subsequent improvement in blood pressure. Heart rate has been running between 95 and 120 during the hospitalization. Patient did test positive for COVID yesterday after reevaluation for patient not feeling well. EKG and telemetry revealed evidence of ectopy with concern for paroxysmal atrial fibrillation. Patient was on prophylactic anticoagulation which will now be switched to therapeutic in setting of COVID with possible atrial fibrillation. Echocardiogram this admission shows preserved ejection fraction with no significant valve disease. [facility] Medical History (Updated 04/13/22 @ 13:46 by SONDRA Clifton) Benign positional vertigo Coronary artery disease Edema of both lower extremities Eosinophilia Hilar lymphadenopathy Hyperlipidemia Hypertension Lung abscess Lung nodule Mediastinal lymphadenopathy Unresolved pneumonia Surgical History History of cholecystectomy Hx of CABG Hx of hernia repair S/P CABG x 3 Family History Family history of stroke Family history of diabetes mellitus type II Social History Smoking Status: Never smoker second hand exposure: Yes alcohol intake: never counseling provided: none substance use type: denies use current occupational status: retired Travel in the last 8 weeks: None household members: spouse housing: house current occupational exposures/hazards: No caffeine: Yes Review of Systems Constitutional Constitutional: Denies headache(s) and Reports weakness ENT Ears, Nose, Mouth, and Throat: Denies headache(s) *Musculoskeletal Musculoskeletal: Denies numbness *Neurologic Neurologic: Denies headache(s), Denies numbness and Reports weakness Exam Data for Last 24 hours Vital signs and Labs for Last 24 Hours: Temp Pulse Resp BP Pulse Ox FiO2 98 F 86 24 118/72 97 36 04/13/22 03:25 04/13/22 06:21 04/13/22 03:25 04/13/22 03:25 04/13/22 06:21 04/12/22 20:40 Laboratory Results - last 24 hr 04/12/22 06:30: Lactate Dehydrogenase 170 L 04/12/22 06:30: Ferritin 397 04/12/22 17:12: Chlamy pneumoniae PCR Not detected, Adenovirus (PCR) Not detected, B. pertussis DNA (PCR) Not detected, Coronavirus OC43 (PCR) Not detected, Coronavirus HKU1 (PCR) Not detected, Coronavirus 229E (PCR) Not detected, SARS-CoV-2 (PCR) Detected A, Coronavirus NL63 (PCR) Not detected, Human Metapneumovir PCR Not detected, Influenza A (H1) PCR Not detected, Influ A (H1N1/09) PCR Not detected, Influenza A (H3) PCR Not detected, Influenza Type A (PCR) Not detected, Influenza Type B (PCR) Not detected, M. pneumoniae (PCR) Not detected, Parainfluenza 1 (PCR) Not detected, Parainfluenza 2 (PCR) Not detected, Parainfluenza 3 (PCR) Not detected, Parainfluenza 4 (PCR) Not detected, RSV (PCR) Not detected, Entero/Rhino (PCR) Not detected 04/12/22 21:30: Vancomycin Trough 14.9 H 04/12/22 21:30: D-Dimer 1.30 H 04/13/22 01:00: Vanc
--- NOTE | 2022-04-13 09:16 | SW/DCPLANNER ---
Addendum entered by Maritza Minor 04/14/22 12:57: Patient will discharge to [facility] level of care today. Addendum entered by Maritza Minor 04/13/22 15:50: Radha meeks/ [facility] stated that she can accept this patient at time of discharge. Addendum entered by Maritza Minor 04/13/22 12:32: [facility] is reviewing patient information at this time. Original Note: I spoke with patient and his family regarding plans once medically stable for discharge. PT evaluated this patient and recommended SNF level of care. Patient/family request [facility] at time of discharge: no beds available at this time. I explained to patient/family at this time [facility] is one of the only facilities that will accept COVID positive patients: family is agreeable to sending patient information to [facility] at this time. Patient is not medically stable for discharge today.
--- NOTE | 2022-04-13 09:24 | EXP.PULM.PN ---
Subjective *Date: 04/13/22 *Time: 11:03 Interval history: Patient admits worsening respiratory symptoms over the weekend however admits that improvement compared to yesterday. Continue to have worsening respiratory distress and cough with scant productive phlegm Pulmonology Exam Inpatient Vital signs and Labs for Last 24 Hours: Temp Pulse Resp BP Pulse Ox FiO2 98 F 86 24 118/72 97 36 04/13/22 03:25 04/13/22 06:21 04/13/22 03:25 04/13/22 03:25 04/13/22 06:21 04/12/22 20:40 Laboratory Results - last 24 hr 04/12/22 06:30: Lactate Dehydrogenase 170 L 04/12/22 06:30: Ferritin 397 04/12/22 17:12: Chlamy pneumoniae PCR Not detected, Adenovirus (PCR) Not detected, B. pertussis DNA (PCR) Not detected, Coronavirus OC43 (PCR) Not detected, Coronavirus HKU1 (PCR) Not detected, Coronavirus 229E (PCR) Not detected, SARS-CoV-2 (PCR) Detected A, Coronavirus NL63 (PCR) Not detected, Human Metapneumovir PCR Not detected, Influenza A (H1) PCR Not detected, Influ A (H1N1/09) PCR Not detected, Influenza A (H3) PCR Not detected, Influenza Type A (PCR) Not detected, Influenza Type B (PCR) Not detected, M. pneumoniae (PCR) Not detected, Parainfluenza 1 (PCR) Not detected, Parainfluenza 2 (PCR) Not detected, Parainfluenza 3 (PCR) Not detected, Parainfluenza 4 (PCR) Not detected, RSV (PCR) Not detected, Entero/Rhino (PCR) Not detected 04/12/22 21:30: Vancomycin Trough 14.9 H 04/12/22 21:30: D-Dimer 1.30 H 04/13/22 01:00: Vancomycin Peak 39.7 H 04/13/22 05:31: D-Dimer 1.06 H 04/13/22 05:31: Sodium 139, Potassium 4.9, Chloride 107, Carbon Dioxide 22, Anion Gap 14.9, BUN 40 H, Creatinine 1.00, Estimated Creat Clear 70, Estimated GFR 71, Est GFR ( Amer) 86 D, Glucose 148 H D, Calcium 8.4, Magnesium 2.2, Lactate Dehydrogenase 124 L D 04/13/22 05:31: WBC 12.9 H D, RBC 3.43 L, Hgb 10.9 L, Hct 32.8 L, MCV 95.5 H, MCH 31.7 H, MCHC 33.2, RDW 13.9, Plt Count 336, MPV 8.1, Neut % (Auto) 93.8 H, Lymph % (Auto) 2.6 L, [place] % (Auto) 3.0, Eos % (Auto) 0.5, Baso % (Auto) 0.1, Neut # (Auto) 12.1 H, Lymph # (Auto) 0.3 L, [place] # (Auto) 0.4, Eos # (Auto) 0.1, Baso # (Auto) 0.0, Total Counted 100, Neutrophils % (Manual) 92 H, Band Neutrophils % 7.0, Lymphocytes % (Manual) 1 L, Hypersegmented Neuts 1+, Platelet Estimate Normal, RBC Morphology Normal 04/13/22 05:31: Ferritin 312 I & O for Labs for Last 24 Hours: Intake & Output 04/11/22 04/12/22 04/12/22 04/13/22 00:59 00:59 23:59 23:59 Intake Total 600 / 600 Output Total 700 / 700 Balance -100 / -100 Weight 201 lb 1 oz Microbiology Reports for the Last 24 Hours: Microbiology 04/10/22 15:30 Bronchial Washings - Right Lower Lobe - Final Not Reportable 04/10/22 15:30 Bronchial Washings - Right Lower Lobe - Final Not Reportable 04/10/22 15:30 Bronchial Washings - Right Lower Lobe - Final Not Reportable 04/10/22 15:30 Bronchial Washings - Right Lower Lobe - Final Not Reportable 04/10/22 15:30 Bronchial Washings - Right Lower Lobe - Final Not Reportable 04/10/22 15:30 Bronchial Washings - Right Lower Lobe Gram Stain - Final 04/10/22 15:30 Bronchial Washings - Right Lower Lobe Bronchoalveolar Lavage Culture - Final 04/10/22 15:30 Transbronchial Biopsy - Right Lower Lobe Gram Stain - Final 04/10/22 15:30 Transbronchial Biopsy - Right Lower Lobe Surgical Biopsy Culture - Preliminary 04/11/22 04:15 Nose - Nasal MRSA Culture - Final No growth. Constitutional: Present moderate distress Head: Present normocephalic and atraumatic ENT: Present normal exam, normal oropharynx and mucous membranes moist Neck: Present normal inspection and full ROM Respiratory: Present rhonchi, wheezes, diminished air movement and able to speak in complete sentences; Absent accessory muscle use, prolonged expiratory ph
--- NOTE | 2022-04-13 09:39 | EXP.ACUTE.PN ---
Subjective *Date: 04/13/22 *Time: 10:48 Interval history: Patient states he feels a little bit better today. Does not complain of achiness. Of note, respiratory panel returned yesterday with COVID positive. This would explain patient's clinical change yesterday and new symptoms of achiness. Denies any nausea or vomiting. Still not had a bowel movement but denies abdominal pain. States he is passing gas. Having good urine output. Started on remdesivir overnight. Afebrile this morning. Stable oxygen requirement of 4 L. Cough remains dry nonproductive Medical Exam Vital signs and Labs for Last 24 Hours: Vital Signs Temp Pulse Pulse Resp BP BP Pulse Ox 04/13/22 06:21 86 04/13/22 06:21 92 H 04/13/22 06:21 97 04/13/22 04:00 100 H 04/13/22 04:00 100 H 04/13/22 03:25 98 F 101 H 24 118/72 94 L 04/13/22 00:00 90 04/13/22 00:52 100 H 04/13/22 00:52 102 H 04/12/22 20:00 89 L 04/12/22 23:50 98.2 F 109 H 20 126/80 89 L 04/12/22 20:40 04/12/22 20:39 105 H 04/12/22 20:39 104 H 04/12/22 20:00 100 H 04/12/22 20:00 97.8 F 107 H 20 119/70 88 L 04/12/22 16:00 110 H 04/12/22 12:00 100 H 04/12/22 16:00 98.6 F 108 H 20 109/57 L 92 L 04/12/22 12:00 98.3 F 106 H 20 100/61 L 91 L 04/12/22 09:47 102 H 04/12/22 09:47 84 04/12/22 09:47 93 L FiO2 04/13/22 06:21 04/13/22 06:21 04/13/22 06:21 04/13/22 04:00 04/13/22 04:00 04/13/22 03:25 04/13/22 00:00 04/13/22 00:52 04/13/22 00:52 04/12/22 20:00 04/12/22 23:50 04/12/22 20:40 36 04/12/22 20:39 04/12/22 20:39 04/12/22 20:00 04/12/22 20:00 04/12/22 16:00 04/12/22 12:00 04/12/22 16:00 04/12/22 12:00 04/12/22 09:47 04/12/22 09:47 04/12/22 09:47 Intake and Output 04/12/22 04/13/22 04/13/22 23:59 07:59 15:59 Intake Total 600 / 600 Output Total 250 / 1225 700 / 700 Balance -250 / 85 -100 / -100 Intake: Intake, Total IV Amount 600 / 600 Cefepime HCl 1 gm In 0.9 % 50 / 50 Sodium Chloride 50 ml @ 100 mls /hr IV Q12H [facility] Rx#:[id number] Remdesivir 200 mg In 0.9 % 250 / 250 Sodium Chloride 250 ml @ 250 mls/hr IV ONCE ONE Rx#:[id number] Vancomycin/Water For Inj (Peg) 300 / 300 1.5 gm In 300 ml @ 150 mls/hr IV Q24H [facility] Rx#:[id number] Output: Output, Urine Amount 250 / 1225 700 / 700 Other: Number of Unmeasured Voids 0 0 Weight 91.2 kg Patient Weight 04/13/22 23:59 Weight 91.2 kg Laboratory Results - last 24 hr 04/12/22 06:30: Lactate Dehydrogenase 170 L 04/12/22 06:30: Ferritin 397 04/12/22 17:12: Chlamy pneumoniae PCR Not detected, Adenovirus (PCR) Not detected, B. pertussis DNA (PCR) Not detected, Coronavirus OC43 (PCR) Not detected, Coronavirus HKU1 (PCR) Not detected, Coronavirus 229E (PCR) Not detected, SARS-CoV-2 (PCR) Detected A, Coronavirus NL63 (PCR) Not detected, Human Metapneumovir PCR Not detected, Influenza A (H1) PCR Not detected, Influ A (H1N1/09) PCR Not detected, Influenza A (H3) PCR Not detected, Influenza Type A (PCR) Not detected, Influenza Type B (PCR) Not detected, M. pneumoniae (PCR) Not detected, Parainfluenza 1 (PCR) Not detected, Parainfluenza 2 (PCR) Not detected, Parainfluenza 3 (PCR) Not detected, Parainfluenza 4 (PCR) Not detected, RSV (PCR) Not detected, Entero/Rhino (PCR) Not detected 04/12/22 21:30: Vancomycin Trough 14.9 H 04/12/22 21:30: D-Dimer 1.30 H 04/13/22 01:00: Vancomycin Peak 39.7 H 04/13/22 05:31: D-Dimer 1.06 H 04/13/22 05:31: Sodium 139, Potassium 4.9, Chloride 107, Carbon Dioxide 22, Anion Gap 14.9, BUN 40 H, Creatinine 1.00, Estimated Creat Clear 70, Estimated GFR 71, Est GFR ( Amer) 86 D, Glucose 148 H D, Calcium 8.4, Magnesium 2.2, Lactate Dehydrogenase 124 L D 04/13/22 05:31: WBC 12.9 H D, RBC 3.43 L, Hgb 10.9 L, Hct 32.8
--- NOTE | 2022-04-13 09:44 | HMH.OTEV ---
OT Inpatient Evaluation Rehab OT IP Evaluation Start: 04/13/22 07:00 Freq: ONCE Status: Complete Protocol: Document 04/13/22 09:34 ELLEN (Rec: 04/13/22 09:44 [facility] [id number]) Rehab OT IP Assessment Subjective History Pt oriented x 3 on arrival. Pt agreeable to engage in therapy evaluation. Pt's and daughter present and supportive. Pt was admitted via Ed on 04/09/22 due to SOB, cough, and weakness. Pt tested positive for COVID-19 yesterday evening. Prior to being in the hospital, pt lived at home with his . He was independent with all ADLs and IADLs. Pt did not use a walker or cane during ambulation. Pt also still drove. Pt has a medical history of: Benign positional vertigo Coronary artery disease Edema of both lower extremities Eosinophilia Hilar lymphadenopathy Hyperlipidemia Hypertension Lung abscess Lung nodule Mediastinal lymphadenopathy Subjective I do feel weak. Objective Patient Orientation Person,Place,Birthday Upper Extremity Gross ROM Min Limitation <25% Shoulder ROM Limitations Muscle Weakness Elbow ROM Limitations Muscle Weakness Wrist Limitations of Range of Motion Muscle Weakness Transfer Training Sit/Stand Transfer Assist Level Contact Guard/Hand Hold Rehab OT IP prob,goals,plan Problems Date of Evaluation: 04/13/22 OT IP Problems Bed Mobility,Transfers,Balance ,Self care,Safety Rehab Potential Rehab Potential Good Equipment Needs Assistive Devices Rolling / Wheeled Walker Plan OT intervention Plan Bed Mobility,Transfers,Balance ,Self care,Safety,Therapeutic Exercise OT Plan Frequency BID Duration LOS Discharge Goals Bed Mobility Ability Standby Assistance Sit to Stand Chair Transfer Ability Contact Guard/Hand Hold Chair Transfer Ability
--- NOTE | 2022-04-13 09:49 | EXP.PHA.CONS ---
Pharmacy Consult Date: 04/13/22 Time: 09:49 Referring provider: DR. REID Reason for Consult:: VANCOMYCIN LEVELS Allergies Allergy/AdvReac Type Severity Reaction Status Date / Time No Known Allergies Allergy Verified 04/09/22 08:52 Home Medications Medication Instructions Recorded Confirmed Type amlodipine 10 mg tablet 10 mg PO DAILY Hypertension 09/10/17 04/09/22 History pravastatin 40 mg tablet 40 mg PO DAILY Cholesterol 09/10/17 04/09/22 History atenolol 25 mg tablet 25 mg PO DAILY Hypertension 09/17/17 04/09/22 History aspirin 81 mg tablet,delayed 81 mg PO DAILY Heart disease 04/03/22 04/09/22 History release amoxicillin 500 mg-potassium 1 tab PO TID antibiotic 04/09/22 04/09/22 History clavulanate 125 mg tablet (Augmentin) ipratropium 20 mcg-albuterol 100 1 puff inhalation QID SOA 04/09/22 04/09/22 History mcg/actuation mist for inhalation (Combivent Respimat) New Prescriptions to Start Prescriptions: Height: 1.75 m Weight: 91.2 kg Laboratory Results:: Laboratory Results - last 24 hr 04/12/22 06:30: Lactate Dehydrogenase 170 L 04/12/22 06:30: Ferritin 397 04/12/22 17:12: Chlamy pneumoniae PCR Not detected, Adenovirus (PCR) Not detected, B. pertussis DNA (PCR) Not detected, Coronavirus OC43 (PCR) Not detected, Coronavirus HKU1 (PCR) Not detected, Coronavirus 229E (PCR) Not detected, SARS-CoV-2 (PCR) Detected A, Coronavirus NL63 (PCR) Not detected, Human Metapneumovir PCR Not detected, Influenza A (H1) PCR Not detected, Influ A (H1N1/09) PCR Not detected, Influenza A (H3) PCR Not detected, Influenza Type A (PCR) Not detected, Influenza Type B (PCR) Not detected, M. pneumoniae (PCR) Not detected, Parainfluenza 1 (PCR) Not detected, Parainfluenza 2 (PCR) Not detected, Parainfluenza 3 (PCR) Not detected, Parainfluenza 4 (PCR) Not detected, RSV (PCR) Not detected, Entero/Rhino (PCR) Not detected 04/12/22 21:30: Vancomycin Trough 14.9 H 04/12/22 21:30: D-Dimer 1.30 H 04/13/22 01:00: Vancomycin Peak 39.7 H 04/13/22 05:31: D-Dimer 1.06 H 04/13/22 05:31: Sodium 139, Potassium 4.9, Chloride 107, Carbon Dioxide 22, Anion Gap 14.9, BUN 40 H, Creatinine 1.00, Estimated Creat Clear 70, Estimated GFR 71, Est GFR ( Amer) 86 D, Glucose 148 H D, Calcium 8.4, Magnesium 2.2, Lactate Dehydrogenase 124 L D 04/13/22 05:31: WBC 12.9 H D, RBC 3.43 L, Hgb 10.9 L, Hct 32.8 L, MCV 95.5 H, MCH 31.7 H, MCHC 33.2, RDW 13.9, Plt Count 336, MPV 8.1, Neut % (Auto) 93.8 H, Lymph % (Auto) 2.6 L, [place] % (Auto) 3.0, Eos % (Auto) 0.5, Baso % (Auto) 0.1, Neut # (Auto) 12.1 H, Lymph # (Auto) 0.3 L, [place] # (Auto) 0.4, Eos # (Auto) 0.1, Baso # (Auto) 0.0, Total Counted 100, Neutrophils % (Manual) 92 H, Band Neutrophils % 7.0, Lymphocytes % (Manual) 1 L, Hypersegmented Neuts 1+, Platelet Estimate Normal, RBC Morphology Normal 04/13/22 05:31: Ferritin 312 Medical History: Medical History (Updated 04/13/22 @ 08:03 by SONDRA Clifton) Benign positional vertigo Coronary artery disease Edema of both lower extremities Eosinophilia Hilar lymphadenopathy Hyperlipidemia Hypertension Lung abscess Lung nodule Mediastinal lymphadenopathy Unresolved pneumonia Assessment and Plan Assessment and plan all Dx Assessment and Plan for all problems:: RECOMMEND CONTINUING WITH CURRENT DOSE AND INTERVAL OF VANCOMYCIN 1.5 GM Q24H BASED ON VANCOMYCIN PK AND TROUGH LEVELS OF 38.78 MCG/ML AND 14.9 MCG/ML, RESPECTIVELY.
--- NOTE | 2022-04-13 09:54 | P.PNANES_ITS ---
[facility] Anesthesia Record Part II Anesthesia Record Part II Discharge Time: 17:02 (04/10/22) Destination: Medical Surgical Department PACU nurse assessment reviewed?: Yes Patient Condition:: Good Anesthesia Complications:: None Swallowing reflex intact?: Yes Cyanosis?: No Blood Pressure: 103/60 Pulse Rate: 104 Temperature: 97.5 F Mental Status: Alert & Oriented Pain level:: 0 Nausea and/or vomitting:: None Intake, IV Amount: 0
--- NOTE | 2022-04-13 11:05 | XR_ITS ---
FINAL REPORT CLINICAL HISTORY: Hypoxia COMPARISON: April 12, 2022 FINDINGS: Mild cardiomegaly is noted. There has been prior median sternotomy. There is dense airspace opacity in the right mid lung, more evident than prior. There is no pleural effusion. There is no pneumothorax. The bony thorax is intact. IMPRESSION: Worsening right lung pneumonia. Reviewed, Interpreted and Dictated by Emerson Appiah MD Transcribed by Maykel Keen Authenticated and [facility]
--- NOTE | 2022-04-13 11:41 | DIET.NUTRFU ---
Addendum entered by Osiris Gordon RD, LD 04/14/22 08:47: nursing is noting consumption of supplements at times, plan to discharge when ready to NH for rehab. Anticipate meal intake improving as COVID resolves. Original Note: RD reviewed meal intake, tested positive for COVID over weekend. Continues on cardiac diet with no straws, family filling out menu preferences. He tends to prefer softer foods. Ensure was also added to tray last week to provide additional calories and protein if consumed. Meals over weekend were fair 50-75%. Wt is up with +2 edema noted. No BM noted since admit, provider aware, he is passing gas. Meds are also in place for BM mgt.
--- NOTE | 2022-04-13 17:47 | PC.NURSE ---
VS stable. Pt stated he felt much better today than the day before. Patient stable on 4LNC with oxygen between 90-93%. Patient able to ambulate in room with patient. Lungs on ascultation same as am assessment, right lower lobe expiratory wheeze and rest of lobe crackles. Left lung sounds still diminished. Patient up to chair for shift
[2022-04-14] VITALS: BP 115/69; PULSE 90; PULSE 95; TEMP 36.6; O2SAT 95
[2022-04-14 00:12] VITALS: PULSE 74; PULSE 77
[2022-04-14 04:00] VITALS: BP 106/72; PULSE 70; PULSE 78; RESP 22; TEMP 36.6; O2SAT 94
[2022-04-14 05:00] VITALS: PULSE 70; PULSE 72; O2SAT 100; BMI 30.1
[2022-04-14 06:02] LABS: Alanine Aminotransferase 28 U/L (12-78); Albumin Level 2.7 g/dl (3.5-5.0); Albumin/Globulin Ratio 0.9 (1.1-1.8); Alkaline Phosphatase 84 U/L (38-126); Anion Gap 13.8 mEq/L (5-15); Aspartate Amino Transferase 32 U/L (17-59); Basophils % 0.2 % (0.1-2.0); Bilirubin,Total 0.8 mg/dl (0.2-1.3); Blood Urea Nitrogen 49 mg/dl (9-20); Calcium 8.8 mg/dl (8.4-10.2); Carbon Dioxide 23 mmol/L (22.0-30.0); Chloride 107 mmol/L (98-107); Creatinine Clearance Estimated 71 mL/min (50-200); Eosinophils % 0.1 % (0.1-12.0); Estimated Glomerular Filt Rate 71 ml/min (>60); GFR (African American) 86 ML/MIN (>60); Globulin 3.1 g/dL (1.3-3.2); Glucose 144 mg/dl (74-100); Hematocrit 33.1 % (42.0-52.0); Hemoglobin 10.9 g/dL (14.1-18.0); Lymphocytes # 0.7 K/mm3 (0.7-4.5); Lymphocytes % 4.7 % (10-50); Mean Corpuscular HGB Conc 32.8 g/dL (31.8-35.4); Mean Corpuscular Hemoglobin 31.8 pg (27.0-31.2); Mean Corpuscular Volume 96.9 fl (80-94); Mean Platelet Volume 8.2 fl (7.4-10.4); Monocytes # 0.5 K/mm3 (0.1-1.0); Monocytes % 3.6 % (1.7-9.3); Neutrophils # 13.3 K/mm3 (1.8-7.8); Neutrophils % 91.4 % (37.0-80.0); Platelet Count 335 K/mm3 (142-424); Potassium 4.8 mmoL/L (3.5-5.1); Red Blood Count 3.42 M/mm3 (4.60-6.20); Red Cell Distribution Width 14.1 % (11.5-17.5); Sodium 139 mmol/L (136-145); Total Protein,Serum 5.8 g/dl (6.3-8.2); White Blood Count 14.5 K/mm3 (4.8-10.8)
[2022-04-14 06:15] LABS: MANUAL DIFFERENTIAL MANUAL DIFFERENTIAL (MANUAL DIFF)
[2022-04-14 06:33] LABS: Lymphocytes % 7 % (10-50); Monocytes % 6 % (2-9); Neutrophils % 87 % (42-76); Total Cells Counted 100
[2022-04-14 06:34] LABS: Platelet Estimate Normal; RBC Morphology Normal
[2022-04-14 08:00] VITALS: BP 100/59; PULSE 105; PULSE 80; RESP 18; TEMP 36.4; O2SAT 94; O2SAT 95
--- NOTE | 2022-04-14 08:21 | EXP.CARD.PN ---
Subjective Subjective Date: 04/14/22 Time: 08:21 Principal diagnosis: COVID, Atrial ectopy Interval history: 87-year-old white male sitting in bedside chair eating breakfast in no acute distress. Continues to improve clinically. Heart rate is improved on low-dose metoprolol and blood pressure tolerated. He has been getting Lovenox injections without difficulties. Telemetry reveals evidence of sinus rhythm with intermittent multifocal atrial tachycardia but no definite evidence of atrial fibrillation. However would continue oral anticoagulation during hospitalization and after discharge with re evaluation as an outpatient. He does have an elevated CHADS2 score. Exam Data for Last 24 hours Vital signs and Labs for Last 24 Hours: Temp Pulse Resp BP Pulse Ox FiO2 97.5 F L 105 H 18 100/59 L 95 36 04/14/22 08:00 04/14/22 08:00 04/14/22 08:00 04/14/22 08:00 04/14/22 08:00 04/12/22 20:40 Laboratory Results - last 24 hr 04/14/22 05:35: Sodium 139, Potassium 4.8, Chloride 107, Carbon Dioxide 23, Anion Gap 13.8, BUN 49 H, Creatinine 1.00, Estimated Creat Clear 71, Estimated GFR 71, Est GFR ( Amer) 86, Glucose 144 H, Calcium 8.8, Total Bilirubin 0.8, AST 32, ALT 28, Alkaline Phosphatase 84, Total Protein 5.8 L, Albumin 2.7 L, Globulin 3.1, Albumin/Globulin Ratio 0.9 L 04/14/22 05:35: WBC 14.5 H, RBC 3.42 L, Hgb 10.9 L, Hct 33.1 L, MCV 96.9 H, MCH 31.8 H, MCHC 32.8, RDW 14.1, Plt Count 335, MPV 8.2, Neut % (Auto) 91.4 H, Lymph % (Auto) 4.7 L, [place] % (Auto) 3.6, Eos % (Auto) 0.1, Baso % (Auto) 0.2, Neut # (Auto) 13.3 H, Lymph # (Auto) 0.7, [place] # (Auto) 0.5, Eos # (Auto) 0.0, Baso # (Auto) 0.0, Total Counted 100, Neutrophils % (Manual) 87 H, Lymphocytes % (Manual) 7 L, Monocytes % (Manual) 6, Platelet Estimate Normal, RBC Morphology Normal I & O for Last 24 hours: Intake & Output 04/11/22 04/12/22 04/13/22 04/14/22 12:59 11:59 11:59 11:59 Intake Total 780 / 780 990 / 990 Output Total 1250 / 1250 100 / 100 Balance -470 / -470 890 / 890 Weight 201 lb 1 oz 203 lb 8.633 oz Microbiology Reports for the Last 24 Hours: Microbiology 04/10/22 15:30 Bronchial Washings - Right Lower Lobe - Final Not Reportable 04/10/22 15:30 Bronchial Washings - Right Lower Lobe - Final Not Reportable 04/10/22 15:30 Bronchial Washings - Right Lower Lobe - Final Not Reportable 04/10/22 15:30 Bronchial Washings - Right Lower Lobe - Final Not Reportable 04/10/22 15:30 Bronchial Washings - Right Lower Lobe - Final Not Reportable 04/10/22 15:30 Bronchial Washings - Right Lower Lobe Gram Stain - Final 04/10/22 15:30 Bronchial Washings - Right Lower Lobe Bronchoalveolar Lavage Culture - Final 04/10/22 15:30 Transbronchial Biopsy - Right Lower Lobe Gram Stain - Final 04/10/22 15:30 Transbronchial Biopsy - Right Lower Lobe Surgical Biopsy Culture - Preliminary 04/11/22 04:15 Nose - Nasal MRSA Culture - Final No growth. 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
--- NOTE | 2022-04-14 09:34 | EXP.PULM.PN ---
Subjective *Date: 04/14/22 *Time: 10:46 Interval history: No acute respiratory events overnight. Patient admits continued improvement in his respiratory symptoms. Pulmonology Exam Inpatient Vital signs and Labs for Last 24 Hours: Temp Pulse Resp BP Pulse Ox FiO2 97.5 F L 105 H 18 100/59 L 94 L 36 04/14/22 08:00 04/14/22 08:00 04/14/22 08:00 04/14/22 08:00 04/14/22 08:00 04/12/22 20:40 Laboratory Results - last 24 hr 04/14/22 05:35: Sodium 139, Potassium 4.8, Chloride 107, Carbon Dioxide 23, Anion Gap 13.8, BUN 49 H, Creatinine 1.00, Estimated Creat Clear 71, Estimated GFR 71, Est GFR ( Amer) 86, Glucose 144 H, Calcium 8.8, Total Bilirubin 0.8, AST 32, ALT 28, Alkaline Phosphatase 84, Total Protein 5.8 L, Albumin 2.7 L, Globulin 3.1, Albumin/Globulin Ratio 0.9 L 04/14/22 05:35: WBC 14.5 H, RBC 3.42 L, Hgb 10.9 L, Hct 33.1 L, MCV 96.9 H, MCH 31.8 H, MCHC 32.8, RDW 14.1, Plt Count 335, MPV 8.2, Neut % (Auto) 91.4 H, Lymph % (Auto) 4.7 L, [place] % (Auto) 3.6, Eos % (Auto) 0.1, Baso % (Auto) 0.2, Neut # (Auto) 13.3 H, Lymph # (Auto) 0.7, [place] # (Auto) 0.5, Eos # (Auto) 0.0, Baso # (Auto) 0.0, Total Counted 100, Neutrophils % (Manual) 87 H, Lymphocytes % (Manual) 7 L, Monocytes % (Manual) 6, Platelet Estimate Normal, RBC Morphology Normal I & O for Labs for Last 24 Hours: Intake & Output 04/12/22 04/12/22 04/13/22 04/14/22 00:59 23:59 23:59 23:59 Intake Total 1710 / 1710 360 / 360 Output Total 700 / 700 100 / 100 Balance 1010 / 1010 260 / 260 Weight 201 lb 1 oz 203 lb 8.633 oz Microbiology Reports for the Last 24 Hours: Microbiology 04/10/22 15:30 Transbronchial Biopsy - Right Lower Lobe Gram Stain - Final 04/10/22 15:30 Transbronchial Biopsy - Right Lower Lobe Surgical Biopsy Culture - Preliminary 04/10/22 15:30 Bronchial Washings - Right Lower Lobe - Final Not Reportable 04/10/22 15:30 Bronchial Washings - Right Lower Lobe - Final Not Reportable 04/10/22 15:30 Bronchial Washings - Right Lower Lobe - Final Not Reportable 04/10/22 15:30 Bronchial Washings - Right Lower Lobe - Final Not Reportable 04/10/22 15:30 Bronchial Washings - Right Lower Lobe - Final Not Reportable 04/10/22 15:30 Bronchial Washings - Right Lower Lobe Gram Stain - Final 04/10/22 15:30 Bronchial Washings - Right Lower Lobe Bronchoalveolar Lavage Culture - Final 04/11/22 04:15 Nose - Nasal MRSA Culture - Final No growth. Constitutional: Present moderate distress Head: Present normocephalic and atraumatic ENT: Present normal exam, normal oropharynx and mucous membranes moist Neck: Present normal inspection and full ROM Respiratory: Present rhonchi, diminished air movement and able to speak in complete sentences; Absent accessory muscle use, prolonged expiratory phase, respiratory distress, wheezes or crackles Cardiac: Present S1/S2, Tachycardia and radial pulses present GI: Present soft and distention; Absent tenderness or guarding Skin: Present intact; Absent cyanosis or jaundice Neuro: Present alert, awake and oriented x 3 Extremities: Present normal inspection; Absent clubbing or cyanosis Psychiatric: Present normal affect and cooperative Assessment and Plan *Assessment and plan (1) Unresolved pneumonia: Problem details: Patient treated initially with vancomycin, cefepime, and Levaquin, with de-escalation to cefepime monotherapy. Additionally itraconazole was started 04/10. Pt will be discharged on itraconazole and cefdinir. Status: Acute Category: Medical Code(s): J18.9 - Pneumonia, unspecified organism (2) Eosinophilia: Status: Acute Category: Medical Code(s): D72.10 - Eosinophilia, unspecified (3) Mediastinal lymphadenopathy: Status: Acute Category: Medical
--- NOTE | 2022-04-14 09:35 | XR_ITS ---
FINAL REPORT CLINICAL HISTORY: hypox COMPARISON: 04/13/2022 FINDINGS: SINGLE-VIEW CHEST There is mild cardiomegaly. The patient is status post median sternotomy. There is patchy airspace opacity in the right mid and lower lung, probably due to resolving pneumonia. Findings have improved since previous. There is new mild airspace opacity in the left mid lung concerning for developing pneumonia. There is no pneumothorax. IMPRESSION: Improving pneumonia in the right lung with early developing pneumonia on the left. Reviewed, Interpreted and Dictated by Emerson Appiah MD Transcribed by Tyra Hilton Authenticated and [facility]
--- NOTE | 2022-04-14 10:17 | EXP.DC.SUM ---
General Admission date:: 04/09/22 Discharge date: 04/14/22 HPI HPI HPI: Mr. Roe is a pleasant 87-year-old male who presented to cardiology clinic today for follow-up. While in the clinic was noted to have low blood pressure, weakness, continued oxygen requirement after recent admission last weekend to [facility]. Given patient's symptoms, he was transferred to the ER for further evaluation. Concern at that time was for CHF exacerbation or worsening pneumonia. On arrival to the ER he reports increased shortness of breath and persistent cough since admission this past weekend. Has required continued oxygen which is new for him. Has had chills but no cecille fever. Poor appetite and decreased p.o. intake. Work-up in the ER including labs and imaging showed worsening right lower lobe pneumonia, elevated BNP, worsening leukocytosis (19 K). Medicine contacted for admission for worsening pneumonia and hypoxemic respiratory failure. Patient's heart rate, leukocytosis, pneumonia meet criteria for sepsis. Started on IV fluids and broad-spectrum antibiotics in the ER. After arriving to the floor, patient is alert and oriented. Denies any chest pain, nausea, vomiting. Has had some mild constipation. Complains of mild swelling in his legs. Dyspnea with exertion over the past several days that is worsened since last admission. Family at bedside, updated of plan. Hospital Course Hospital Course Hospital Course: Patient is an 87-year-old male who was admitted here from 04/03-04/05 for pneumonia. He was discharged on Augmentin and unfortunately shortness of breath worsened a couple days after discharge. Patient was readmitted here on 04/09-04/14 for persistent pneumonia with hypoxemic respiratory failure requiring supplemental oxygen by nasal cannula. Patient was admitted on vancomycin, Levaquin, and cefepime. On 04/10 patient had a bronchoscopy which was positive for yeast, and therefore patient was started on itraconazole. On 04/12 patient was found to be COVID-positive and he was started on remdesivir. Antibiotics were de-escalated to cefepime alone and patient did well on this. He will be discharged with cefdinir twice daily for 5 more days. Patient will take itraconazole twice daily. Patient received 3 days of remdesivir during admission he will continue Paxil COVID p.o. at half-way facility. Patient was weaned to 3 L supplemental oxygen by nasal cannula on day of discharge, he did well with this including during physical therapy. Patient will be discharged to [facility] to continue rehab. Exam Data for Last 24 hours Vital signs and Labs for Last 24 Hours: Temp Pulse Resp BP Pulse Ox FiO2 97.5 F L 105 H 18 100/59 L 94 L 36 04/14/22 08:00 04/14/22 08:00 04/14/22 08:00 04/14/22 08:00 04/14/22 08:00 04/12/22 20:40 Laboratory Results - last 24 hr 04/14/22 05:35: Sodium 139, Potassium 4.8, Chloride 107, Carbon Dioxide 23, Anion Gap 13.8, BUN 49 H, Creatinine 1.00, Estimated Creat Clear 71, Estimated GFR 71, Est GFR ( Amer) 86, Glucose 144 H, Calcium 8.8, Total Bilirubin 0.8, AST 32, ALT 28, Alkaline Phosphatase 84, Total Protein 5.8 L, Albumin 2.7 L, Globulin 3.1, Albumin/Globulin Ratio 0.9 L 04/14/22 05:35: WBC 14.5 H, RBC 3.42 L, Hgb 10.9 L, Hct 33.1 L, MCV 96.9 H, MCH 31.8 H, MCHC 32.8, RDW 14.1, Plt Count 335, MPV 8.2, Neut % (Auto) 91.4 H, Lymph % (Auto) 4.7 L, [place] % (Auto) 3.6, Eos % (Auto) 0.1, Baso % (Auto) 0.2, Neut # (Auto) 13.3 H, Lymph # (Auto) 0.7, [place] # (Auto) 0.5, Eos # (Auto) 0.0, Baso # (Auto) 0.0, Total Counted 100, Neutrophils % (Manual) 87 H, Lymphocytes % (Manual) 7 L, Monocytes % (Manual) 6, Platelet Estimate Normal, RBC Morphology Normal I & O for Last 24 hours: Intake & Output 04/12/22 04/12/22 04/13/22 04/14/22 00:59 23:59 23:59 23:59 Intake Total 1710 / 1710 360 / 360 Output Total 700 / 700 100 / 100 Balance 1010 / 1010 260 / 260 Weight 91.
[2022-04-14 12:00] VITALS: BP 124/64; PULSE 75; PULSE 78; RESP 18; TEMP 36.6; O2SAT 93
--- NOTE | 2022-04-15 12:35 | CARE MANAGER ---
Contacted [facility] and followed up on patient. They state he is doing very well and deny any questions or concerns at this time. ABE Asif
== END 2022-04-14 14:25 | disposition home or self-care (01) | DRG 166 ==
LOC: ER 12:15 → 2ND 12:46
PROVIDERS: Internal Medicine Pulmonary Disease; Nurse Practitioner Family; Admitting Provider Internal Medicine Adolescent Medicine; Emergency Provider Emergency Medicine; PCP Nurse Practitioner Family; Visit Provider Emergency Medicine
PROC: 0BBF8ZX Excision of Right Lower Lung Lobe, Via Natural or Artificial Opening Endoscopic, Diagnostic (ICD-10-PCS; principal; 2022-04-10 15:00)
DX: J18.9 Pneumonia, unspecified organism (principal); J12.82 Pneumonia due to coronavirus disease 2019; J85.1 Abscess of lung with pneumonia; U07.1 COVID-19; J96.01 Acute respiratory failure with hypoxia; J44.0 Chronic obstructive pulmonary disease with (acute) lower respiratory infection; I50.32 Chronic diastolic (congestive) heart failure; Y95 Nosocomial condition; Z95.1 Presence of aortocoronary bypass graft; E78.5 Hyperlipidemia, unspecified; I25.10 Atherosclerotic heart disease of native coronary artery without angina pectoris; Z66 Do not resuscitate; I11.0 Hypertensive heart disease with heart failure; Z87.891 Personal history of nicotine dependence; E88.09 Other disorders of plasma-protein metabolism, not elsewhere classified; D64.9 Anemia, unspecified
CPT/HCPCS: 31628; 31624; 31629; 31625; 36415; 71045; 71046; 76000; 80048; 80053; 80202; 82728; 83605; 83615; 83735; 83880; 84484; 85007; 85025; 85378; 87040; 87070; 87077; 87081; 87102; 87106; 87116; 87186; 87205; 87206; 87581; 87632; 87798; 88112; 88305; 88312; 89051; 93005; 93306; 94640; 94761; 97110; 97116; 97162; 97166; 97530; 99285; C9803; J0692; J1956; J2405; U0003; U0005

== ENCOUNTER 2022-05-05 10:00 | Inpatient (IN) | payer MEDICARE, SELFPAY ==
[2022-05-05] VITALS (14 sets, daily range): BP systolic 99–114; BP diastolic 63–75; PULSE 84–98; RESP 20–28; TEMP 36.6–36.9; O2SAT 92–100; BMI 25.8; BMI 25.4
--- NOTE | 2022-05-05 09:58 | ECG_ITS ---
APPROVED REPORT Exam: Resting ECG HR:95 bpm ECG Measurements Heart Rate 95 AXES MN 198 P 61 QRSd 131 QRS 9 QT 374 T 66 QTc 427 Conclusion SINUS RHYTHM RIGHT BUNDLE BRANCH BLOCK [120+ ms QRS DURATION, UPRIGHT V1, 40+ ms S IN I/aVL/V4/V5/V6] ABNORMAL ECG UNCONFIRMED REPORT Electronically signed by : Jaime Lau MD 05/05/2022 20:19:07
--- NOTE | 2022-05-05 10:04 | XR_ITS ---
FINAL REPORT CLINICAL HISTORY: short of breath COMPARISON: 04/14/2022 and 04/03/2022 FINDINGS: The heart size is normal. The patient is status post CABG. There is a chronic opacity in the right lower lobe which is stable to minimally worse as compared to prior. Given the chronicity, this raises question of neoplastic process such as adenocarcinoma or lymphangitic tumor spread. Recommend bronchoscopy if this has not been recently performed. There are no pleural effusions. There is no pneumothorax. There is no osseous abnormality. IMPRESSION: Chronic right lung opacity, may be inflammatory versus neoplastic. Consider follow-up bronchoscopy. Reviewed, Interpreted and Dictated by Keagan Parra MD Transcribed by Tyra Hilton Authenticated and [facility]
--- NOTE | 2022-05-05 10:04 | PC.NURSE ---
EKG performed and given to ZEYNEP NAVARRO
--- NOTE | 2022-05-05 10:06 | HMH.EDGENADL ---
Discharge Plan Disposition Patient Disposition: Admitted As Inpatient Condition: Serious Chief Complaint: Shortness of Breath/Dyspnea Prescriptions Prescriptions: No Action lorazepam 0.5 mg tablet 0.5 mg PO Q6H PRN (Reason: anxiety) Qty: 120 5RF Paxlovid (EUA) 300 mg (150 mg x 2)-100 mg tablets,dose pack See Rx Instructions .ROUTE .COMPLEX Qty: 30 0RF Rx Instructions: take TWO 150 mg tablets of nirmatrelvir with ONE 100 mg tablet of ritonavir twice daily for 5 days cefdinir 300 mg capsule 300 mg PO BID 5 Days Qty: 10 0RF Eliquis 2.5 mg tablet 2.5 mg PO BID Qty: 60 0RF prednisone 10 mg tablet See Rx Instructions .ROUTE .COMPLEX Qty: 30 0RF Rx Instructions: Take 7 tabs on 04/15, 6 tabs on 04/16, 5 tabs on 04/17, 4 tabs on 04/18, 3 tabs on 04/19, 2 tabs on 04/20, 1 tab on 04/21, and 1/2 tab from 04/22-04/25. itraconazole 100 mg capsule 200 mg PO BID 14 Days Qty: 56 0RF Rx Instructions: must administer with a meal/food metoprolol tartrate 25 mg Tablet 12.5 mg PO BID Qty: 60 0RF pravastatin 40 MG tablet 40 mg PO DAILY Qty: 30 0RF Label Comments: aspirin 81 mg Tablet,Delayed Release (Dr/Ec) 81 mg PO DAILY Qty: 30 0RF Combivent Respimat 20-100 mcg/actuation mist 1 puff inhalation QID Qty: 4 0RF Rx Instructions: space evenly during waking hours Referrals Follow up/Referrals: Provider,Referral, MD [Primary Care Provider] - See instructions Clinical Impressions Clinical Impression: Anemia, Shortness of breath Discharge ED Provider: Loren Willis General Adult HPI General Chief complaint: Shortness of Breath/Dyspnea Stated complaint: soa Time Seen by Provider: 05/05/22 10:04 History of Present Illness HPI narrative: 87-year-old male presenting to the emergency department from his skilled nursing by EMS. EMS was called by staff this morning. Yesterday evening patient had developed worsening respiratory difficulty. He usually uses 3 L by nasal cannula. They transitioned him to a nonrebreather. This morning, he was still on the nonrebreather and oxygen saturation was in the high 80s. He has a history of recent COVID and hospitalization. Chart review shows that he completed Levaquin 2 weeks ago. Prior was on cefdinir. Not currently on antibiotics. He is taking prednisone. Has a history of COPD, mediastinal lymphadenopathy, lung nodules, CHF. Takes Eliquis and aspirin. Patient says he feels short of breath at times. Worse at night when lying down. Some leg swelling. No chest pain. Has a dry cough. No fevers or chills. Has little appetite, but no abdominal pain. Related Data Previous Rx's Medication Instructions Recorded apixaban 2.5 mg tablet (Eliquis) 2.5 mg PO BID #60 tabs 04/14/22 aspirin 81 mg tablet,delayed 81 mg PO DAILY Heart disease #30 04/14/22 release tabs cefdinir 300 mg capsule 300 mg PO BID 5 days #10 caps 04/14/22 ipratropium 20 mcg-albuterol 100 1 puff inhalation QID SOA #4 grams 04/14/22 mcg/actuation mist for inhalation (Combivent Respimat) itraconazole 100 mg capsule 200 mg PO BID 14 days #56 caps 04/14/22 metoprolol tartrate 25 mg tablet 12.5 mg PO BID #60 tabs 04/14/22 nirmatrelvir 300 mg (150 mg See Rx Instructions PO .COMPLEX 04/14/22 x2)-ritonavir 100 mg tablet,dose #30 tabs pack(EUA) (Paxlovid) pravastatin 40 mg tablet 40 mg PO DAILY Cholesterol #30 tabs 04/14/22 prednisone 10 mg tablet See Rx Instructions .Route 04/14/22 .COMPLEX #30 tabs lorazepam 0.5 mg tablet 0.5 mg PO Q6H PRN anxiety #120 tabs 04/20/22 Allergies Allergy/AdvReac Type Severity Reaction Status Date / Time No Known Allergies Allergy Verified 04/09/22 08:52 [facility] Medical History (Updated 05/05/22 @ 13:19 by Loren Willis DO) Benign positional vertigo Coronary artery disease Edema of both lower extremities Eosinophilia Hilar lymphadenopathy Hyperlipidemia Hypertension Lung abscess Lung nodule Mediastina
[2022-05-05 10:23] LABS: Basophils # 0.2 K/mm3 (0-0.2); Basophils % 1.3 % (0.1-2.0); Eosinophils # 0.7 K/mm3 (0.0-0.4); Eosinophils % 5.9 % (0.1-12.0); Lymphocytes # 1.7 K/mm3 (0.7-4.5); Lymphocytes % 13.7 % (10-50); Mean Corpuscular HGB Conc 37.6 g/dL (31.8-35.4); Mean Corpuscular Hemoglobin 34.3 pg (27.0-31.2); Mean Corpuscular Volume 91.2 fl (80-94); Mean Platelet Volume 7.9 fl (7.4-10.4); Monocytes # 0.6 K/mm3 (0.1-1.0); Monocytes % 5.1 % (1.7-9.3); Neutrophils # 9.1 K/mm3 (1.8-7.8); Neutrophils % 73.9 % (37.0-80.0); Platelet Count 421 K/mm3 (142-424); Red Blood Count 2.02 M/mm3 (4.60-6.20); Red Cell Distribution Width 21.8 % (11.5-17.5); White Blood Count 12.3 K/mm3 (4.8-10.8)
[2022-05-05 10:27] LABS: Alanine Aminotransferase 16 U/L (12-78); Albumin Level 3.2 g/dl (3.5-5.0); Albumin/Globulin Ratio 0.9 (1.1-1.8); Alkaline Phosphatase 91 U/L (38-126); Aspartate Amino Transferase 31 U/L (17-59); Bilirubin,Total 7.1 mg/dl (0.2-1.3); Blood Urea Nitrogen 27 mg/dl (9-20); Calcium 8.4 mg/dl (8.4-10.2); Carbon Dioxide 28 mmol/L (22.0-30.0); Chloride 101 mmol/L (98-107); Creatinine Clearance Estimated 61 mL/min (50-200); Estimated Glomerular Filt Rate 71 ml/min (>60); GFR (African American) 86 ML/MIN (>60); Globulin 3.4 g/dL (1.3-3.2); Glucose 117 mg/dl (74-100); Sodium 140 mmol/L (136-145); Total Protein,Serum 6.6 g/dl (6.3-8.2)
[2022-05-05 10:28] LABS: Lactic Acid 1.2 mmol/L (0.7-2.1)
[2022-05-05 10:29] LABS: Hemoglobin 6.9 g/dL (14.1-18.0)
--- NOTE | 2022-05-05 10:29 | PC.NURSE ---
notified ER of critical hgb/hct
[2022-05-05 10:30] LABS: Hematocrit 18.4 % (42.0-52.0)
[2022-05-05 10:35] LABS: VBG Base Excess 0.9 mmol/L (-2.4-2.3); VBG HCO3 24.6 mmol/L (23-30); VBG PCO2 34.9 mmol/L (35-51); VBG PH 7.47 mmol/L (7.31-7.41); VBG PO2 45.4 mmol/L (28-40); VBG Total CO2 25.7 mmol/L (23-27)
[2022-05-05 10:39] LABS: NT Pro Brain Natriuretic Pep. 1060 pg/mL (0-450); Troponin I 0.02 ng/ml (0.00-0.034)
[2022-05-05 10:44] LABS: Procalcitonin 0.193 ng/mL (0.0-2.0)
--- NOTE | 2022-05-05 10:55 | PC.NURSE ---
is at BS.
[2022-05-05 11:40] LABS: Occult Blood,Stool Negative (Negative)
[2022-05-05 11:49] LABS: Influenza A, PCR Not Detected (NotDetected); Influenza B, PCR Not Detected (NotDetected)
--- NOTE | 2022-05-05 12:00 | PC.NURSE ---
ZEYNEP NAVARRO called hospitalist phone, no answer, states she will call back again soon.
--- NOTE | 2022-05-05 12:12 | PC.NURSE ---
per earnestine in lab pt has antibody in his blood so they are having to send it to [facility] to be crossmatched and get blood. Notified ZEYNEP NAVARRO, who states wants pt to get 2 units of blood, notified earnestine
[2022-05-05 12:19] LABS: Appearance,Urine CLEAR (Clear); Blood, Urine Negative (Negative); Color,Urine YELLOW (Yellow); Glucose,Urine (UA) Negative (Negative); Ketones,Urine TRACE (Negative); Leukocyte Esterase,Urine Negative (Negative); Microscopic, Urine URINE MICROSCOPIC (MICROSCOPIC); Nitrate,Urine POSITIVE (Negative); Protein,Urine TRACE (Negative)
[2022-05-05 12:24] LABS: Bilirubin,Urine 1+ (Negative)
--- NOTE | 2022-05-05 12:25 | PC.NURSE ---
ER contacted hospitalist for admission, Dr. Wade states he will have to call her back.
[2022-05-05 12:33] LABS: Bacteria,Urine Trace /lpf; Squamous Epithelial Cell,Urine Occasional #/hpf (0-5); WBC,Urine Occasional #/hpf (0-3)
[2022-05-05 12:37] LABS: Coronavirus 19, PCR Detected (NotDetected)
--- NOTE | 2022-05-05 13:17 | PC.NURSE ---
ZEYNEP NAVARRO speaking with Dr. Wade (hospitalist)
--- NOTE | 2022-05-05 13:22 | PC.NURSE ---
notified care management of admission, spoke with caitlyn
--- NOTE | 2022-05-05 13:37 | US_ITS ---
FINAL REPORT TECHNIQUE: Multiple transverse and longitudinal images CLINICAL HISTORY: elevated bilirubin, anemia FINDINGS: The gallbladder is surgically absent. No biliary ductal dilatation is appreciated. Limited portions of the right liver are unremarkable. Moderate right hydronephrosis. 11 mm right renal cyst. IMPRESSION: Moderate right hydronephrosis. Right renal cyst. Reviewed, Interpreted and Dictated by Keagan Parra MD Transcribed by Maykel Keen Authenticated and [facility]
--- NOTE | 2022-05-05 13:39 | PC.NURSE ---
report called to elvai norton on second floor at this time
[2022-05-05 14:06] LABS: Lactate Dehydrogenase 334 U/L (313-618)
[2022-05-05 14:12] LABS: Iron 147 ug/dL (49-181)
[2022-05-05 14:15] LABS: Total Iron Binding Capacity 201 ug/dL (261-462)
--- NOTE | 2022-05-05 14:19 | PC.NURSE ---
jennifer matute staff states she is on her way to do ultrasound on pt.
[2022-05-05 14:28] LABS: Fibrinogen 487 mg/dL (229.9-363.5)
--- NOTE | 2022-05-05 14:49 | PC.NURSE ---
Pt arrived to the floor at this time
--- NOTE | 2022-05-05 17:04 | EXP.HP ---
History of Present Illness *Admission Date: 05/05/22 *Reason for visit:: shortness of breath *History of present illness: Lower lobeMrJuan Roe is a pleasant 87-year-old male who presented to the emergency department from his longterm by EMS.? EMS was contacted due to worsening shortness of breath. This is been present since yesterday. Normally on 3 L nasal cannula, was transitioned to nonrebreather last night.? This morning, he was still on the nonrebreather and oxygen saturation was in the high 80s.? He has a history of recent COVID and hospitalization.? Was discharged on antibiotics at last admission for concern for lung abscess. Had completed Levaquin and cefdinir. No current antimicrobial therapy. Continue to take Eliquis and aspirin. Shortness of breath has been present since last admission. Worse at night when lying down. Has been taking his medications as prescribed but is complained of some orthopnea and leg swelling. Denies chest pain, nausea, vomiting, fever, diarrhea. Does complain of poor appetite and a dry cough. Work-up in the ER positive for marked anemia. Improved leukocytosis. Chest imaging stable with no new findings. Stable right lung density/opacity. Admitted to medicine for symptomatic anemia and further management. After arriving to the floor, patient is alert and oriented.? Denies any chest pain, nausea, vomiting.? Dyspnea with exertion over the past several days that is worsened since last admission.? Family at bedside, updated of plan. [facility] Medical History Benign positional vertigo Coronary artery disease Edema of both lower extremities Eosinophilia Hilar lymphadenopathy Hyperlipidemia Hypertension Lung abscess Lung nodule Mediastinal lymphadenopathy Unresolved pneumonia Surgical History History of cholecystectomy Hx of CABG Hx of hernia repair S/P CABG x 3 Family History Family history of stroke Family history of diabetes mellitus type II Social History Smoking Status: Former smoker pack-years: 25 second hand exposure: Yes alcohol intake: never counseling provided: none substance use type: denies use current occupational status: retired Travel in the last 8 weeks: None household members: spouse housing: house current occupational exposures/hazards: No caffeine: Yes Review of Systems Review of Systems Review of systems (narrative): 14 point review of systems performed, pertinent positives and negatives as per HPI Constitutional Constitutional: Denies headache(s) and Reports weakness ENT Ears, Nose, Mouth, and Throat: Denies headache(s) *Neurologic Neurologic: Denies headache(s) and Reports weakness Meds Home Medications and Allergies Home Medications Medication Instructions Recorded Confirmed Type aspirin 81 mg tablet,delayed 81 mg PO DAILY Heart disease #30 04/14/22 05/05/22 Rx release tabs ipratropium 20 mcg-albuterol 100 1 puff inhalation QID SOA #4 grams 04/14/22 05/05/22 Rx mcg/actuation mist for inhalation (Combivent Respimat) pravastatin 40 mg tablet 40 mg PO DAILY Cholesterol #30 tabs 04/14/22 05/05/22 Rx lorazepam 0.5 mg tablet 0.5 mg PO Q6H PRN anxiety #120 tabs 04/20/22 05/05/22 Rx apixaban 2.5 mg tablet (Eliquis) 2.5 mg PO BID Blood thinner 05/05/22 05/05/22 History cefdinir 300 mg capsule 300 mg PO BID pna 05/05/22 05/05/22 History itraconazole 100 mg capsule 200 mg PO BID fungal infection 05/05/22 05/05/22 History metoprolol tartrate 25 mg tablet 12.5 mg PO BID blood pressure 05/05/22 05/05/22 History New Prescriptions to Start Prescriptions: Allergies Allergy/AdvReac Type Severity Reaction Status Date / Time No Known Allergies Allergy Verified 04/09/22 08:52 Exam Data for Last 24 hours Vital signs and Labs
[2022-05-05 19:09] LABS: Lactate Dehydrogenase 322 U/L (313-618)
[2022-05-06] VITALS (25 sets, daily range): BP systolic 94–122; BP diastolic 52–75; PULSE 90–99; RESP 18–20; TEMP 36.4–36.8; O2SAT 91–98; BMI 25.4
--- NOTE | 2022-05-06 03:30 | PC.NURSE ---
checked on status of blood at this time, blood not ready
--- NOTE | 2022-05-06 04:33 | PC.NURSE ---
PATIENT HAS BEEN INCONT OF URINE. REQUESTED A CONDOM CATHETER WHICH WOULD NOT STAY ON. WAITING FOR LAB TO CALL WITH PRBCs. PATIENT TO GET 2 UNITS TRANSFUSED WHEN AVAILABLE. SPOUSE AT BEDSIDE. PATIENT DENIES PAIN/DISCOMFORT. 02 SATS MID 90s. REMAINS ON 02 AT 4LNC.
[2022-05-06 07:02] LABS: Alanine Aminotransferase 17 U/L (12-78); Albumin Level 2.9 g/dl (3.5-5.0); Albumin/Globulin Ratio 0.9 (1.1-1.8); Alkaline Phosphatase 89 U/L (38-126); Anion Gap 9.1 mEq/L (5-15); Aspartate Amino Transferase 32 U/L (17-59); Bilirubin,Total 6.7 mg/dl (0.2-1.3); Blood Urea Nitrogen 30 mg/dl (9-20); Calcium 8.2 mg/dl (8.4-10.2); Carbon Dioxide 26 mmol/L (22.0-30.0); Chloride 110 mmol/L (98-107); Creatinine Clearance Estimated 61 mL/min (50-200); Estimated Glomerular Filt Rate 80 ml/min (>60); GFR (African American) 97 ML/MIN (>60); Globulin 3.1 g/dL (1.3-3.2); Glucose 98 mg/dl (74-100); Magnesium 2.2 mg/dl (1.6-2.3); Potassium 4.1 mmoL/L (3.5-5.1); Sodium 141 mmol/L (136-145)
[2022-05-06 07:03] LABS: Basophils # 0.1 K/mm3 (0-0.2); Basophils % 1.1 % (0.1-2.0); Eosinophils # 0.6 K/mm3 (0.0-0.4); Eosinophils % 4.8 % (0.1-12.0); Lymphocytes # 1.7 K/mm3 (0.7-4.5); Mean Corpuscular HGB Conc 37.4 g/dL (31.8-35.4); Mean Corpuscular Hemoglobin 34.2 pg (27.0-31.2); Mean Corpuscular Volume 91.4 fl (80-94); Mean Platelet Volume 8.1 fl (7.4-10.4); Monocytes # 0.7 K/mm3 (0.1-1.0); Monocytes % 5.8 % (1.7-9.3); Neutrophils # 8.9 K/mm3 (1.8-7.8); Neutrophils % 74.3 % (37.0-80.0); Platelet Count 407 K/mm3 (142-424); Red Blood Count 1.73 M/mm3 (4.60-6.20); Red Cell Distribution Width 22.9 % (11.5-17.5)
[2022-05-06 07:18] LABS: Hematocrit 15.8 % (42.0-52.0); Hemoglobin 5.8 g/dL (14.1-18.0)
--- NOTE | 2022-05-06 07:26 | P.CONPHA_ITS ---
Pharmacy Intervention Comments: Medication reconciliation completed via chart review and MAR from [facility] facility. -Suly Murillo, PharmD Candidate 2022
--- NOTE | 2022-05-06 07:26 | HMH.PHAINT1 ---
Pharmacy Intervention Comments: Medication reconciliation completed via chart review and MAR from [facility] facility. -Suly Murillo, PharmD Candidate 2022
--- NOTE | 2022-05-06 08:05 | PC.NURSE ---
lab called and reported critical hgb/hct and this was reported to (saida)
--- NOTE | 2022-05-06 12:17 | EXP.ACUTE.PN ---
Subjective *Date: 05/06/22 *Time: 17:58 Interval history: Patient appears jaundiced this morning on exam. Appears quite fatigued as well. Still no blood given crossmatch difficulty as he has antibodies in his blood. 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 Denies any chest pain, nausea, vomiting, diarrhea. Still short of breath. Difficulty with urination overnight. Feels the urge but has very little urine output. Poor appetite Medical Exam Vital signs and Labs for Last 24 Hours: Vital Signs Temp Pulse Pulse Resp BP BP Pulse Ox 05/06/22 08:00 93 L 05/06/22 08:00 97.7 F 99 H 20 107/59 L 96 05/06/22 07:55 97.9 F 97 H 20 100/58 L 93 L 05/06/22 03:44 97.5 F L 95 H 18 112/66 93 L 05/05/22 20:00 92 L 05/05/22 19:44 98.2 F 98 H 20 105/65 L 92 L 05/05/22 15:14 98 F 89 28 H 110/75 05/05/22 14:45 84 28 H 114/75 05/05/22 14:30 89 28 H 110/75 100 05/05/22 14:00 87 27 H 107/74 L 100 05/05/22 13:30 87 26 H 113/72 100 05/05/22 14:57 98.4 F 90 23 114/75 95 05/05/22 13:00 86 111/66 100 05/05/22 12:30 107/66 L 98 Intake and Output 05/05/22 05/06/22 05/06/22 23:59 07:59 15:59 Intake Total 240 / 240 120 / 120 Output Total 0 / 0 Balance 240 / 240 120 / 120 Intake: Intake, Oral Amount 240 / 240 120 / 120 Intake (Blood Product) Amt 0 / 0 Red Blood Cells Unit 0 / 0 [id number] Output: Output, Urine Amount 0 / 0 Other: Number of Unmeasured Voids 0 1 Weight 79.6 kg Patient Weight 05/06/22 23:59 Weight 79.6 kg Laboratory Results - last 24 hr 05/05/22 10:05: Iron 147, TIBC 201 L, Iron Saturation 73.93593 H 05/05/22 10:05: Fibrinogen 487 H 05/05/22 10:05: Lactate Dehydrogenase 334 05/05/22 11:00: Blood Type A Positive, Antibody Screen Positive, Crossmatch (AHG) See Detail 05/05/22 11:00: Antibody Identification Warm Auto Antibody 05/05/22 11:40: SARS-CoV-2 (PCR) Detected A, Influenza A Untype (PCR) Not detected, Influenza Type B (PCR) Not detected 05/05/22 12:14: Urine Color Yellow, Urine Appearance Clear, Urine pH 6.0, Ur Specific [place] 1.020, Urine Protein Trace, Urine Glucose (UA) Negative, Urine Ketones Trace, Urine Blood Negative, Urine Nitrate Positive, Urine Bilirubin 1+ A, Urine Urobilinogen 1.0, Ur Leukocyte Esterase Negative, Urine RBC None, Urine WBC Occasional, Ur Squamous Epith Cells Occasional, Urine Bacteria Trace 05/05/22 18:52: Lactate Dehydrogenase 322 05/06/22 06:20: WBC 12.0 H, RBC 1.73 L*, Hgb 5.8 L*, Hct 15.8 L*, MCV 91.4, MCH 34.2 H, MCHC 37.4 H, RDW 22.9 H, Plt Count 407, MPV 8.1, Neut % (Auto) 74.3, Lymph % (Auto) 14.0, [place] % (Auto) 5.8, Eos % (Auto) 4.8, Baso % (Auto) 1.1, Neut # (Auto) 8.9 H, Lymph # (Auto) 1.7, [place] # (Auto) 0.7, Eos # (Auto) 0.6 H, Baso # (Auto) 0.1 05/06/22 06:20: Sodium 141, Potassium 4.1, Chloride 110 H, Carbon Dioxide 26, Anion Gap 9.1, BUN 30 H, Creatinine 0.90, Estimated Creat Clear 61, Estimated GFR 80, Est GFR ( Amer) 97, Glucose 98, Calcium 8.2 L, Magnesium 2.2, Total Bilirubin 6.7 H, AST 32, ALT 17, Alkaline Phosphatase 89, Total Protein 6.0 L, Albumin 2.9 L, Globulin 3.1, Albumin/Globulin Ratio 0.9 L I & O for Labs for Last 24 Hours: Intake & Output 05/03/22 05/04/22 05/05/2230/22 23:59 23:59 23:59 23:59 Intake Total 240 / 240 120 / 120 Output Total 0 / 0 Balance 240 / 240 120 / 120 Weight 79.379 kg 79.6 kg Constitutional: Present no acute distress, average body habitus and chronically ill appearing Head: Present atraumatic and normocephalic ENT: Present mucous membranes moist Comment:: Poor dentition; scleral icterus Neck: Present normal inspection Respiratory: Present normal respiratory effort; Absent accessory muscle use, rhonchi, wheezes or crackles Cardiac: Present Reg Rate and Rhythm; Absent No Murmur GI: Present soft and normal bowel sounds; Absent distention or tenderness
--- NOTE | 2022-05-06 12:35 | SW/DCPLANNER ---
Addendum entered by Maritza Minor 05/07/22 11:41: I have updated Radha w/ [facility] that this patient will not be returning. Addendum entered by Maritza Minor 05/07/22 11:37: The plan for this patient is to discharge home w/ [facility] today. Addendum entered by Maritza Minor 05/06/22 14:22: Per family request patient information has been faxed to [facility]. Original Note: This patient currently resides at [facility] level of care prior to hospital admission. Patient, and daughter are discussing discharge plans at this time and may potentially be interested in returning home with Hospice services. Family has requested additional time to discuss this option. I will follow up with patient/family later this afternoon. Discharge date is unknown at this time.
--- NOTE | 2022-05-06 13:17 | DIET.NUTRFU ---
During meal rounds, this RD spoke to patient with family at bedside. Patient needs to have softer foods, previous admit they ordered softer foods on menu. This time MSOFT consistency was reviewed and they requested to try ground meat this admit to help with meal intake. His appetite has been poor since last admit (04/10)with 16# wt loss. Last admit was here for COVID which may still be affecting appetite/taste of foods. He started remeron about 1-2 weeks ago, in hopes it would improve appetite. Explained that sometimes it can take up to 30 days to see results. This RD also reviewed supplements available, he agreed to vanilla ensure BID with breakfast and dinner. Kitchen aware of changes. Based on poor appetite and weight loss he triggers for moderate PCM, will notify provider.
--- NOTE | 2022-05-06 15:49 | PC.NURSE ---
SPOKE WITH DR REID REGARDING PT SIRS AND ORGAN DYSFUNCTION. NO NEW ORDERS AT THIS TIME ANEMIA IS LIKELY CAUSE FOR SEPSIS CHECKLIST VALUES.
[2022-05-06 17:34] LABS: Hematocrit 23.2 % (42.0-52.0)
[2022-05-06 17:41] LABS: Hemoglobin 8.1 g/dL (14.1-18.0)
--- NOTE | 2022-05-06 18:12 | PC.NURSE ---
REPORTED POST H/H TO DR REID.
--- NOTE | 2022-05-06 18:47 | PC.NURSE ---
PT IS AOX4, REQUIRES 4LNC FOR O2 SUPPORT, RECEIVED 2 UNITS PRBC'S THIS SHIFT AND TOLERATED WELL
[2022-05-07] VITALS: BP 114/70; PULSE 88; RESP 18; TEMP 36.9; O2SAT 95
--- NOTE | 2022-05-07 00:30 | PC.NURSE ---
0011 noted heart rate irregular 92-113; ekg obtained, liya arce aprn called and notified of pt hr and ekg noted to be atrial fibrillation hr 97 and noted ekg obtained in er was noted to nsr, no new orders at this time, liya velez also noted of pt sleeping if not disturbed, pt arousable upon name calling but goes right back to sleep and noted was difficulty to stay awake to swallow pills and had to be instructed to swallow. no acute distress noted.
[2022-05-07 04:00] VITALS: BP 122/80; PULSE 94; RESP 22; TEMP 36.7; O2SAT 91
[2022-05-07 05:15] VITALS: BMI 24.2
--- NOTE | 2022-05-07 05:16 | PC.NURSE ---
no change from previous assessment, pt is alert and oriented x4 this shift, skin noted to be pink with some mild jaundice, f/c to bsd with orange tinged urine, VSS, 02 sats 91-95 on 02 at 5L, pt is very soa with minimal activity in bed, lung sounds diminished, remained at bedside through the night, pt is incontinent of bowel at times, no bm this shift, no other issues noted at this time. no acute distress
[2022-05-07 07:31] LABS: Basophils # 0.1 K/mm3 (0-0.2); Eosinophils # 0.6 K/mm3 (0.0-0.4); Eosinophils % 4.9 % (0.1-12.0); Hemoglobin 7.6 g/dL (14.1-18.0); Lymphocytes # 1.6 K/mm3 (0.7-4.5); Lymphocytes % 12.2 % (10-50); Mean Corpuscular HGB Conc 36.4 g/dL (31.8-35.4); Mean Corpuscular Hemoglobin 32.5 pg (27.0-31.2); Mean Corpuscular Volume 89.4 fl (80-94); Mean Platelet Volume 8.2 fl (7.4-10.4); Monocytes # 0.7 K/mm3 (0.1-1.0); Monocytes % 5.2 % (1.7-9.3); Neutrophils # 9.8 K/mm3 (1.8-7.8); Neutrophils % 76.7 % (37.0-80.0); Platelet Count 400 K/mm3 (142-424); Red Blood Count 2.35 M/mm3 (4.60-6.20); Red Cell Distribution Width 23.2 % (11.5-17.5); White Blood Count 12.8 K/mm3 (4.8-10.8)
[2022-05-07 07:33] VITALS: BP 115/71; PULSE 94; RESP 24; TEMP 37.1; O2SAT 97
[2022-05-07 07:36] LABS: Chloride 110 mmol/L (98-107)
[2022-05-07 07:37] LABS: Potassium 3.6 mmoL/L (3.5-5.1); Sodium 141 mmol/L (136-145)
[2022-05-07 07:39] LABS: Alanine Aminotransferase 14 U/L (12-78); Aspartate Amino Transferase 32 U/L (17-59); Blood Urea Nitrogen 29 mg/dl (9-20); Creatinine Clearance Estimated 60 mL/min (50-200); Estimated Glomerular Filt Rate 80 ml/min (>60); GFR (African American) 97 ML/MIN (>60)
[2022-05-07 07:40] LABS: Albumin Level 2.8 g/dl (3.5-5.0); Albumin/Globulin Ratio 0.9 (1.1-1.8); Alkaline Phosphatase 67 U/L (38-126); Anion Gap 8.6 mEq/L (5-15); Bilirubin,Total 7.2 mg/dl (0.2-1.3); Calcium 8.1 mg/dl (8.4-10.2); Carbon Dioxide 26 mmol/L (22.0-30.0); Globulin 3.1 g/dL (1.3-3.2); Glucose 115 mg/dl (74-100); Total Protein,Serum 5.9 g/dl (6.3-8.2)
--- NOTE | 2022-05-07 08:24 | PC.NURSE ---
Called Dr Wade with Critical lab for H&H.
--- NOTE | 2022-05-07 09:56 | EXP.ONC.CONS ---
History of Present Illness *Admission Date: 05/05/22 *History of present illness: 87 yo wm admitted from rehab. pt found to have anemia on admission to 5.6. he has received prbc and today hgb is 7.6. total bili is 7.2 with normal liver enzymes. pt was found to have polo + antibody. haptoglobin is pending this am. I spoke with pt in the room and daughter Mary Anne on the phone. pt is sleeping and not arousable to exam. pt states he states he wanted to sleep this morning instead of eating breakfast. pt recently had covid. they met with hospice yesterday as per chart and per his he wants to go home and not return to rehab. [facility] Disclaimer: The information contained in this section may have been updated after the patient was seen, as this information can be updated by other users. Medical History Benign positional vertigo Coronary artery disease Edema of both lower extremities Eosinophilia Hilar lymphadenopathy Hyperlipidemia Hypertension Lung abscess Lung nodule Mediastinal lymphadenopathy Unresolved pneumonia Surgical History History of cholecystectomy Hx of CABG Hx of hernia repair S/P CABG x 3 Family History Family history of stroke Family history of diabetes mellitus type II Social History Smoking Status: Former smoker pack-years: 25 second hand exposure: Yes alcohol intake: never counseling provided: none substance use type: denies use current occupational status: retired Travel in the last 8 weeks: None household members: spouse housing: house current occupational exposures/hazards: No caffeine: Yes Review of Systems Constitutional Constitutional: Denies headache(s) and Reports weakness ENT Ears, Nose, Mouth, and Throat: Denies headache(s) *Neurologic Neurologic: Denies headache(s) and Reports weakness Exam (Inpt) Vital signs and Labs for Last 24 Hours: Temp Pulse Resp BP Pulse Ox 98.8 F 94 H 24 115/71 97 05/07/22 07:33 05/07/22 07:33 05/07/22 07:33 05/07/22 07:33 05/07/22 07:33 Laboratory Results - last 24 hr 11/29/22 11:00: Blood Type A Positive, Antibody Screen Positive, Crossmatch (AHG) See Detail 05/06/22 17:15: Hgb 8.1 L D, Hct 23.2 L 05/07/22 07:20: WBC 12.8 H, RBC 2.35 L D, Hgb 7.6 L, Hct 21.0 L, MCV 89.4, MCH 32.5 H, MCHC 36.4 H, RDW 23.2 H, Plt Count 400, MPV 8.2, Neut % (Auto) 76.7, Lymph % (Auto) 12.2, [place] % (Auto) 5.2, Eos % (Auto) 4.9, Baso % (Auto) 1.0, Neut # (Auto) 9.8 H, Lymph # (Auto) 1.6, [place] # (Auto) 0.7, Eos # (Auto) 0.6 H, Baso # (Auto) 0.1 05/07/22 07:20: Sodium 141, Potassium 3.6, Chloride 110 H, Carbon Dioxide 26, Anion Gap 8.6, BUN 29 H, Creatinine 0.90, Estimated Creat Clear 60, Estimated GFR 80, Est GFR ( Amer) 97, Glucose 115 H, Calcium 8.1 L, Total Bilirubin 7.2 H, AST 32, ALT 14, Alkaline Phosphatase 67, Total Protein 5.9 L, Albumin 2.8 L, Globulin 3.1, Albumin/Globulin Ratio 0.9 L I & O for Labs for Last 24 Hours: Intake & Output 05/04/22 05/05/22 05/06/22 05/07/22 11:59 11:59 11:59 11:59 Intake Total 360 / 360 600 / 600 Output Total 0 / 0 1300 / 1300 Balance 360 / 360 -700 / -700 Weight 175 lb 175 lb 7.807 oz 173 lb 1.006 oz Head: Present atraumatic Respiratory: Present decreased breath sounds Skin: Present jaundice Meds Home Medications and Allergies Home Medications Medication Instructions Recorded Confirmed Type aspirin 81 mg tablet,delayed 81 mg PO DAILY Heart disease #30 04/14/22 05/05/22 Rx release tabs ipratropium 20 mcg-albuterol 100 1 puff inhalation QID SOA #4 grams 04/14/22 05/05/22 Rx mcg/actuation mist for inhalation (Combivent Respimat) pravastatin 40 mg tablet 40 mg PO DAILY Cholesterol #30 tabs 04/14/22 05/05/22 Rx lorazepam 0.5 mg tablet 0.5 mg PO Q6H
--- NOTE | 2022-05-07 12:24 | EXP.DC.SUM ---
General Admission date:: 05/05/22 Discharge date: 05/07/22 HPI HPI HPI: 87 yo wm admitted from rehab. pt found to have anemia on admission to 5.6. he has received prbc and today hgb is 7.6. total bili is 7.2 with normal liver enzymes. pt was found to have polo + antibody. haptoglobin is pending this am. I spoke with pt in the room and daughter Mary Anne on the phone. pt is sleeping and not arousable to exam. pt states he states he wanted to sleep this morning instead of eating breakfast. pt recently had covid. they met with hospice yesterday as per chart and per his he wants to go home and not return to rehab. Hospital Course Hospital Course Hospital Course: 87-year-old male with recent admission for healthcare acquired pneumonia, lung abscess, COVID-pneumonia.? Discharged to nursing facility where he has been participating with rehab.? Additionally started on anticoagulation at last admission for concern for A. fib.? Tolerating medications but unfortunately has developed anemia and worsening shortness of breath with exertion.? Elevated BNP concerning for component of diastolic CHF exacerbation.? Difficulty crossmatching blood overnight uncovered Polo positive antibodies.? Worsening anemia this morning, findings concerning for AIHA.? Hemolysis labs pending.? Responded well to transfusion of 2 units. Heme-onc consulted. Patient and family decided to transition care to hospice, will discharge home with hospice today. Problems during hospitalization addressed as follows: Warm autoimmune hemolytic anemia Hyperbilirubinemia -Jaundiced on presentation, significant anemia since last admission. Work-up so far showing hyperbilirubinemia, normal platelet count, suspicion for hemolytic anemia. Differential diagnosis includes AIHA secondary to COVID. Versus medication versus other underlying infection. Labs for HIV, hepatitis, EBV pending. Peripheral smear obtained and pending. Haptoglobin pending at discharge. Hematology oncology saw patient and recommended steroids. Will have follow-up in 2 to 3 weeks to assess response. Anticoagulation discontinued during admission as he is in normal sinus rhythm and risk for worsening anemia. May require further transfusions, will defer to family decision and discussion with hospice and hematology oncology. Acute on chronic diastolic CHF - Elevated BNP on admission.? Dyspnea on exertion. Treated with Lasix x1 with improvement. Recent hospitalization with COVID-pneumonia.? Finished antibiotics.? No other treatment at this time.? Lungs clear aside from bibasilar crackles, attributable to above Sinus rhythm with frequent ectopy (possibly Atrial fibrillation) History of CAD/CABG x3 Heart failure with preserved ejection fraction, - Echo last admission showed preserved EF, diastolic dysfunction. - CHADS-VASC score of at least 4 (age, HTN, Vascular disease) with annual CVA risk of 4.0% - Started on therapeutic anticoagulation last admission however stopped this admission due to anemia. Normal sinus rhythm on exam. Continue his metoprolol. Would defer on further anticoagulation. After discussion with family, patient family want to pursue getting him home and would like to pursue hospice. We will discharged with home hospice, they will meet him at home with DME equipment. Stable for discharge today. Exam Data for Last 24 hours Vital signs and Labs for Last 24 Hours: Temp Pulse Resp BP Pulse Ox 98.8 F 94 H 24 115/71 97 05/07/22 07:33 05/07/22 07:33 05/07/22 07:33 05/07/22 07:33 05/07/22 07:33 Laboratory Results - last 24 hr 05/05/22 11:00: Blood Type A Positive, Antibody Screen Positive, Crossmatch (AHG) See Detail 05/06/22 17:15: Hgb 8.1 L D, Hct 23.2 L 05/07/22 07:20: WBC 12.8 H, RBC 2.35 L D, Hgb 7.6 L, Hct 21.0 L, MCV 89.4, MCH 32.5 H, MCHC 36.4 H, RDW 23.2 H, Plt Count 400, MPV 8.2, Neut % (Auto) 76.7, Lymph % (Auto) 12.2, [place] % (Auto) 5.2, Eos % (Auto) 4.9, Baso % (Au
[2022-05-07 12:49] LABS: Haptoglobin <10 mg/dL (38-329)
--- NOTE | 2022-05-07 12:57 | HMH.PHAINT1 ---
Pharmacy Intervention Comments: Discharge counseling completed at bedside with patient and family. Discussed new medication (prednisone 60 mg daily), continued medications, and discontinued medications (amlodipine, aspirin, eliquis, itraconazole, and cefdinir). Overviewed indication and possible side effects of prednisone. Patient and family verbalized understanding and have no questions or concerns at this time.
--- NOTE | 2022-05-07 13:03 | PC.NURSE ---
Spoke with Kenya from hospice to let her know that d/c order is in. she will call back to let me know when pts equipment is set up at home for d/c.
[2022-05-07 18:26] LABS: Peripheral Smear Review Scanned Result
[2022-05-08 13:49] LABS: EBV Ab VCA, IgG >600.0 U/mL (0.0-17.9); EBV Ab VCA, IgM 79.5 U/mL (0.0-35.9)
[2022-05-23 20:30] LABS: HIV Screen 4th Generation wRfx Non Reactive; Hep A Ab, IgM Negative
[2022-05-23 20:31] LABS: Hepatitis B Core Antibody IgM Negative; Hepatitis B Surface Antigen Negative; Hepatitis C Antibody <0.1
== END 2022-05-07 15:45 | disposition hospice, home (50) | DRG 811 ==
LOC: ER 13:19 → 2ND 13:30
PROVIDERS: Admitting Provider Internal Medicine Adolescent Medicine; Emergency Provider Emergency Medicine; Visit Provider Internal Medicine Adolescent Medicine
DX: D58.9 Hereditary hemolytic anemia, unspecified (principal); I50.33 Acute on chronic diastolic (congestive) heart failure; I11.0 Hypertensive heart disease with heart failure; J44.9 Chronic obstructive pulmonary disease, unspecified; Z95.1 Presence of aortocoronary bypass graft; E78.5 Hyperlipidemia, unspecified; I25.10 Atherosclerotic heart disease of native coronary artery without angina pectoris; Z87.891 Personal history of nicotine dependence; Z66 Do not resuscitate; Z86.16 Personal history of COVID-19; E80.6 Other disorders of bilirubin metabolism
CPT/HCPCS: 36415; 71045; 76705; 80053; 80074; 81001; 82272; 82803; 83010; 83540; 83550; 83605; 83615; 83735; 83880; 84145; 84484; 85014; 85018; 85025; 85384; 86665; 86703; 86850; 86870; 87040; 93005; 94761; 99285; C9803; G0328; G0432; P9016; U0003; U0005